=== PATIENT | male | born 1955 | race Caucasian/White ===

== ENCOUNTER 2017-10-05 14:03 | Emergency (ER) | payer BC ==
[2017-10-05 14:24] VITALS: RESP 18; TEMP 97.9
--- NOTE | 2017-10-05 15:58 | ED ---
Recheck HPI - General Chief Complaint: Recheck/Abnormal Lab/Rx Stated Complaint: Elevated Potassium Time Seen by Provider: 10/05/17 15:44 Source: patient Mode of arrival: ambulatory Limitations: no limitations - History of Present Illness Initial Comments: 62 years old male had a potassium checked daily and was 6.4 him a he was sent to the ER for his high potassium he does have a history of hypertension and diabetes he is on Altace and spironolactone so on the right toes for his diabetes he has no complaints at all is review of system is absolutely unremarkable me headaches no chest pain or shortness of breath no abdominal pain no frequency urgency dysuria - Related Data Home Medications Medication Instructions Recorded Confirmed Aspirin 81 mg PO HS 05/03/14 10/05/17 Digoxin [Digox] 125 mcg PO DAILY@1700 05/03/14 10/05/17 Ezetimibe [Zetia] 10 mg PO HS 05/03/14 10/05/17 Spironolactone 25 mg PO DAILY 05/03/14 10/05/17 Warfarin Sodium 2.5 mg PO SUMOWEFR 05/03/14 10/05/17 metFORMIN HCL [Metformin HCl ER] 500 mg PO BID 05/03/14 10/05/17 Warfarin [Coumadin] 5 mg PO TUTHSA 06/15/14 10/05/17 Cholecalciferol [Vitamin D3] 2,000 units PO DAILY 06/17/14 10/05/17 Cyanocobalamin [Vitamin B-12] 500 mcg PO DAILY 12/08/14 10/05/17 Fexofenadine HCl [Shila Allergy] 180 mg PO DAILY 05/21/16 10/05/17 Fluvastatin Sodium 20 mg PO MOTUWETHFR 05/21/16 10/05/17 Gabapentin [Neurontin] 400 mg PO TID 05/21/16 10/05/17 Liraglutide [Victoza 2-Shar] 1.8 mg SQ DAILY 05/21/16 10/05/17 Lisinopril [Zestril] 40 mg PO DAILY 05/21/16 10/05/17 Metoprolol Succinate [Toprol XL] 200 mg PO HS 05/21/16 10/05/17 Ascorbic Acid [Vitamin C] 500 mg PO DAILY 10/05/17 10/05/17 glipiZIDE XL [Glucotrol Xl] 5 mg PO DAILY@1700 10/05/17 10/05/17 Previous Rx's Medication Instructions Recorded Sodium Polystyrene Sulfonate 30 gm PO BID #300 ml 10/05/17 [Kayexalate] Allergies Allergy/AdvReac Type Severity Reaction Status Date / Time wheat Allergy Anaphylaxis Verified 10/05/17 15:31 Review of Systems ROS Statement: Those systems with pertinent positive or pertinent negative responses have been documented in the HPI. ROS Other: All systems not noted in ROS Statement are negative. Past Medical History Past Medical History: Diabetes Mellitus, Hypertension, Myocardial Infarction ([place] ) Additional Past Medical History / Comment(s): 12/08/13 Pt presented to [facility] ER with chest pressure that radiated to back and started around 0430 AM. Symptoms deminished. Pt felt somewhat dizzy with pain. Other HX: IDDM, atach, mild. congestive heart failure and ischemic cardiomyopathy per old medical record-pt denies, bakers cyst LLE, tinnitis R ear, [place] ate 37 yrs, Last Myocardial Infarction Date:: 1993 History of Any Multi-Drug Resistant Organisms: None Reported Past Surgical History: Appendectomy, Cardiac Ablation, Cholecystectomy, Coronary Bypass/CABG, Ear Surgery, Heart Catheterization, Pacemaker Additional Past Surgical History / Comment(s): 2008 CABG 4 vessel, ccaths x 2, cardioversions x 3, cardiac ablation for afib/flutter x 3, Dual chamber AICD ( [facility]), R ear surgery/ Past Anesthesia/Blood Transfusion Reactions: No Reported Reaction Past Psychological History: No Psychological Hx Reported Smoking Status: Former smoker Past Alcohol Use History: None Reported, Rare Past Drug Use History: None Reported - Past Family History Father Additional Family Medical History / Comment(s): Father has a pacer and is 84 yrs old. Mother Family Medical History: Cancer Additional Family Medical History / Comment(s): Mother had a pacer. She of breast cancer with mets to her brain. General Exam - General Exam Comments Initial Comments: General: The patient is awake and alert, in no distress, and does not appear acutely ill. Skin: Skin is warm and dry and no rashes or lesions are noted. Eye: Pupils are equal, round and reactive to light, extra-ocular movements are intact; there is normal conjunctiva bilaterally. Ears, nose, mouth and throat: There are moist mucous membranes and no oral lesions. Neck: The neck is supple, there is no tenderness or JVD. Cardiovascular: There is a regular rate and rhythm. No murmur, rub or gallop is appreciated. Respiratory: To auscultation bilateral, no wheezing no rhonchi no distress respiratory michaels noticed Gastrointestinal: Soft, non-distended, non-tender abdomen without masses or organomegaly noted. There is no rebound or guarding present. Bowel sounds are unremarkable. Back: There is no tenderness to palpation in the midline. There is no obvious deformity. Musculoskeletal: Normal ROM, no tenderness, There is no pedal edema. There is no calf tenderness or swelling. No cords were appreciated. Neurological: CN II-XII intact, Cranial nerves III through XII are intact. There are no obvious motor or sensory deficits. Coordination appears grossly intact. Speech is normal. Psychiatric: Cooperative, appropriate mood & affect, normal judgment. Limitations: no limitations Course Vital Signs 10/05/17 10/05/17 14:20 19:06 Temperature 97.9 F Pulse Rate 83 81 Respiratory 18 18 Rate Blood Pressure 146/70 140/66 O2 Sat by Pulse 97 98 Oximetry EKG is a sinus rhythm with a first-degree AV block ventricular rate is 84 OR interval is 210 QRS duration is 07/01/2011 QT/QTC 364/4:30 review of this EKG does not reveal any ST elevation or ST depression Patient had there are 2 potassium draws today one of them was done 11 5099 potassium is 6.7 and now second now potassium lab was done at term 1315 was 6.4 considering that I had the confirmation a potassium patient be given some liter of fluids Lasix 40 mg IV and then now dextrose 50 one ampule with insulin regular 9 units IV and small dose of Kayexalate hopefully all these measures wall fixed potassium down to normal level, EKG had no findings consistent with hyperKalemia Potassium was rechecked, is 1.2, he is discharged home he is advised not treated bananas is spironolactone he is on lisinopril and I gave him some Kayexalate for next 2-3 days he is advised to see Dr. Mann on Saturday morning due to some adjustments in in his home meds when he Medical Decision Making - Lab Data Result diagrams: 10/05/17 18:24 Lab Results 10/05/17 Range/Units 18:24 Potassium 5.2 H (3.5-5.1) mmol/L Disposition Clinical Impression: Hyperkalemia Disposition: HOME SELF-CARE Condition: Good Instructions: Hyperkalemia (ED) Prescriptions: Sodium Polystyrene Sulfonate [Kayexalate] 30 gm PO BID #300 ml Referrals: Naman Prasad MD [Primary Care Provider] - 1-2 days
[2017-10-05] MEDS ORDERED: SODIUM CHLORIDE 0.9% 1,000 ML IV STA ×2 (16:06)
[2017-10-05] MEDS ORDERED: FUROSEMIDE 10 MG/ML 4 ML VIAL IV STA (16:08)
[2017-10-05] MEDS ORDERED: DEXTROSE 50%-WATER 50 ML SYRINGE IVP STA (16:09)
[2017-10-05] MEDS ORDERED: INSULIN REGULAR 100 UNIT/ML VIAL IV ONE (16:10)
[2017-10-05] MEDS ORDERED: SODIUM POLYSTYRENE SULFONATE 15 GM/60 ML BOTTLE PO STA (16:11)
[2017-10-05 19:07] VITALS: BP 140/66; PULSE 81
== END 2017-10-05 19:49 | disposition home or self-care (01) ==
LOC: EC 14:03
DX: E87.5 Hyperkalemia (principal); I44.0 Atrioventricular block, first degree; E11.9 Type 2 diabetes mellitus without complications; I25.2 Old myocardial infarction; I11.0 Hypertensive heart disease with heart failure; I50.9 Heart failure, unspecified; Z87.891 Personal history of nicotine dependence; Z79.82 Long term (current) use of aspirin; Z79.01 Long term (current) use of anticoagulants; Z79.899 Other long term (current) drug therapy; Z91.018 Allergy to other foods
CPT/HCPCS: 36415; 93005; 84132; 99283; 96374; 96375; 96361 ×3; J1940; 99284

== ENCOUNTER → 2017-10-05 | Outpatient (CLI) | payer BC | END | disposition home or self-care (01) | LOC: RADXRMAIN 12:51 | PROVIDERS: ATTEND Internal Medicine | DX: I10 Essential (primary) hypertension (principal) | CPT/HCPCS: 84132 ==

== ENCOUNTER → 2017-10-05 | Outpatient (CLI) | payer BC ==
[2017-10-05 11:11] LABS: Basophils % (A) 1 %; Eosinophils # (A) 0.3 k/uL (0-0.7); Eosinophils % (A) 4 %; HCT 36.9 % (39.0-53.0); HGB 13.7 gm/dL (13.0-17.5); Lymphocytes # (A) 1.5 k/uL (1.0-4.8); Lymphocytes % (A) 22 %; MCH 33.9 pg (25.0-35.0); MCV 91.5 fL (80.0-100.0); Mean Platelet Volume 7.4; Monocytes # (A) 0.3 k/uL (0-1.0); Monocytes % (A) 4 %; Neutrophils # (A) 4.6 k/uL (1.3-7.7); Neutrophils % (A) 66 %; Platelet Count 174 k/uL (150-450); RBC 4.03 m/uL (4.30-5.90); RDW 14.2 % (11.5-15.5)
[2017-10-05 11:12] LABS: Appearance,Urine Clear (Clear); Bilirubin,Urine Negative (Negative); Blood,Urine Negative (Negative); Color,Urine Yellow; Glucose,Urine (UA) 4+ (Negative); Ketones,Urine Negative (Negative); Leukocyte Esterase,Urine Negative (Negative); Nitrite,Urine Negative (Negative); Protein,Urine Trace (Negative); Specific Gravity,Urine 1.025 (1.001-1.035); Urobilinogen,Urine <2.0 mg/dL (<2.0)
[2017-10-05 11:27] LABS: Albumin 4.1 g/dL (3.5-5.0); Calcium 9.4 mg/dL (8.4-10.2); Total Bilirubin 0.6 mg/dL (0.2-1.3); Total Protein 7.4 g/dL (6.3-8.2)
[2017-10-05 12:16] LABS: Potassium 6.7 mmol/L (3.5-5.1)
== END | disposition home or self-care (01) ==
LOC: LABWHC1 10:46
PROVIDERS: ATTEND Internal Medicine
DX: I10 Essential (primary) hypertension (principal)
CPT/HCPCS: 36415; 80053; 80061; 81003; 85025

== ENCOUNTER 2017-11-04 07:31 | Day surgery (SDC) | payer BC ==
[2017-10-31 09:22] VITALS: BMI 28.8
[~2017-11-04 07:31] MED LIST: LACTATED RINGERS 1,000 ML IV SCH; LIDOCAINE 1% 20 ML VIAL (10MG/ML) FOR IV START INTRADERMA PRN
[2017-11-04] MEDS ORDERED: LACTATED RINGERS 1,000 ML IV ONE (07:35)
[2017-11-04 08:02] VITALS: RESP 16; TEMP 97.4
[2017-11-04 08:18] LABS: Glucose,Whole Blood 270 mg/dL (75-99)
[2017-11-04] MEDS ORDERED: PROPOFOL 10 MG/ML 20 ML VIAL IV ONE (08:57)
[2017-11-04] MEDS ORDERED: LIDOCAINE 1% INJ 10MG/ML (20 ML MDV) ONE (08:57)
--- NOTE | 2017-11-04 09:23 | P.PCN ---
Date of Procedure: 11/04/17 Procedure(s) Performed: Procedure: Colonoscopy and biopsy. Preoperative diagnosis: Screening for neoplasia. Postoperative diagnosis: 1. Diverticulosis with no evidence of acute diverticulitis or strictures. 2. Diminutive polyp in the rectum biopsied but no large polyps or cancer. Preparation: HalfLytely prep. Sedation: Was provided by anesthesia. Brief clinical history: The patient is a 62-year-old male who is scheduled for this evaluation for screening for neoplasia age being his risk factor. He has no abdominal complaints, bleeding or anemia. This would be his first colonoscopy. Procedure: With the patient on his left lateral decubitus position and after informed consent and adequate sedation, the perianal area was inspected and it did not show any fissures or fistulas. There were no masses felt on digital rectal examination. The Olympus CFQ 160L video colonoscope was then inserted in the rectum in the usual fashion and advanced to the cecum. There was a diminutive polyp in the rectum close to the rectosigmoid junction which was biopsied but there were no large polyps or cancer. There was occasional diverticular orifices seen in the sigmoid and on the right side with no evidence of acute diverticulitis or strictures. I retroflexed the endoscope in the rectum before the endoscope was withdrawn. The patient tolerated the procedure well. Plan: The patient was reassured. Discussed dietary measures. He will follow up with you as planned and I recommended repeat exam in 5-10 years depending on the pathology results.
[2017-11-04 09:27] LABS: Glucose,Whole Blood 273 mg/dL (75-99)
[2017-11-04 09:48] VITALS: BP 120/79; PULSE 82
== END 2017-11-04 10:03 | disposition home or self-care (01) ==
LOC: ORWHC2ENDO 07:31
DX: Z12.11 Encounter for screening for malignant neoplasm of colon (principal); K62.1 Rectal polyp; K57.30 Diverticulosis of large intestine without perforation or abscess without bleeding; E11.9 Type 2 diabetes mellitus without complications; I48.91 Unspecified atrial fibrillation; I11.0 Hypertensive heart disease with heart failure; I50.9 Heart failure, unspecified; Z95.810 Presence of automatic (implantable) cardiac defibrillator; Z95.1 Presence of aortocoronary bypass graft; I42.9 Cardiomyopathy, unspecified; I25.2 Old myocardial infarction; Z87.891 Personal history of nicotine dependence; Z79.84 Long term (current) use of oral hypoglycemic drugs; Z79.82 Long term (current) use of aspirin; Z79.899 Other long term (current) drug therapy; Z91.018 Allergy to other foods
CPT/HCPCS: 88305; 45380; J2001; J2704

== ENCOUNTER 2018-01-14 09:38 | Inpatient (IN) | payer BC ==
[2018-01-14] MEDS ORDERED: HEPARIN SODIUM,PORCINE 5,000 UNIT/ML 1 ML VIAL IV STA (10:08)
--- NOTE | 2018-01-14 10:34 | ED ---
Arrhythmia/Palpitations HPI - General Source: patient, RN notes reviewed Mode of arrival: wheelchair Limitations: no limitations <Joseluis Kincaid - Last Filed: 01/14/18 11:35> <Marvel Epstein - Last Filed: 01/14/18 11:39> - General Chief Complaint: Arrhythmia/Palpitations Stated Complaint: Heart sent by PCP Time Seen by Provider: 01/14/18 09:56 - History of Present Illness Initial Comments: This is a 62-year-old male presents emergency Department with chief complaint of fibular firing. Patient states that he was having a stress test and cardiology day and which is typically when off. He states he has no complaints at this time. Patient states that he's had open-heart in 2008 and had defibrillator placed approximately a year after. He does have a history of A. fib. Patient of his medications this morning other than his insulin. states takes aspirin and nighttime did take it last night. Patient denies current shortness breath, palpitations, headache, dizziness. Patient states she primarily sees Dr. Morton (Joseluis Kincaid) - Related Data Home Medications Medication Instructions Recorded Confirmed Digoxin [Digox] 125 mcg PO DAILY@1700 05/03/14 01/14/18 Ezetimibe [Zetia] 10 mg PO DAILY 05/03/14 01/14/18 Warfarin Sodium 2.5 mg PO SUMOWEFR 05/03/14 01/14/18 Warfarin [Coumadin] 5 mg PO TUTHSA 06/15/14 01/14/18 Cholecalciferol [Vitamin D3] 2,000 units PO DAILY 06/17/14 01/14/18 Cyanocobalamin [Vitamin B-12] 500 mcg PO DAILY 12/08/14 01/14/18 Fexofenadine HCl [Shila Allergy] 180 mg PO DAILY 05/21/16 11/04/17 Fluvastatin Sodium 20 mg PO MOTUWETHFR 05/21/16 01/14/18 Liraglutide [Victoza 2-Shar] 1.8 mg SQ DAILY 05/21/16 01/14/18 Lisinopril [Zestril] 40 mg PO DAILY 05/21/16 01/14/18 Metoprolol Succinate [Toprol XL] 200 mg PO HS 05/21/16 01/14/18 Ascorbic Acid [Vitamin C] 500 mg PO DAILY 10/05/17 01/14/18 Hydrochlorothiazide [Hydrodiuril] 12.5 mg PO DAILY 11/04/17 01/14/18 Gabapentin 600 mg PO TID 01/14/18 01/14/18 Insulin Aspart (Niacinamide) 7 unit SQ TID 01/14/18 01/14/18 [Fiasp 100 Unit/ml Flextouch] Insulin Glargine,Hum.rec.anlog 20 units SQ DAILY 01/14/18 01/14/18 [Toujeo Solostar] Nitroglycerin 0.4 mg SL ONCE PRN 01/14/18 01/14/18 Spironolactone [Aldactone] 25 mg PO DAILY 01/14/18 01/14/18 glipiZIDE [Glucotrol XL] 10 mg PO DAILY 01/14/18 01/14/18 Allergies Allergy/AdvReac Type Severity Reaction Status Date / Time wheat Allergy Anaphylaxis Verified 01/14/18 10:27 Review of Systems ROS Other: All systems not noted in ROS Statement are negative. <Joseluis Kincaid - Last Filed: 01/14/18 11:35> ROS Other: All systems not noted in ROS Statement are negative. <Marvel Epstein - Last Filed: 01/14/18 11:39> ROS Statement: Those systems with pertinent positive or pertinent negative responses have been documented in the HPI. Past Medical History Past Medical History: Atrial Fibrillation, Heart Failure, Diabetes Mellitus, Hypertension, Myocardial Infarction ([place]) Additional Past Medical History / Comment(s): ischemic cardiomyopathy per old medical record-pt denies, bakers cyst LLE, tinnitis R ear, Last Myocardial Infarction Date:: 1993 History of Any Multi-Drug Resistant Organisms: None Reported Past Surgical History: AICD, Appendectomy, Cardiac Ablation, Cholecystectomy, Coronary Bypass/CABG, Ear Surgery, Heart Catheterization, Pacemaker Additional Past Surgical History / Comment(s): 2008 CABG 4 vessel, ccaths x 2, cardioversions x 3, cardiac ablation for afib/flutter x 3, Dual chamber AICD/ [facility] ([facility]), R ear surgery, abnormal stress test december 2017. Past Anesthesia/Blood Transfusion Reactions: No Reported Reaction Type of Cardiac Device: Biventricular Pacemaker, AICD Device Placement Date:: 2009 Past Psychological History: No Psychological Hx Reported Smoking Status: Former smoker Past Alcohol Use History: None Reported Past Drug Use History: None Reported - Past Family History Father Additional Family Medical History / Comment(s): Father has a pacer and is 84 yrs old. Mother Family Medical History: Cancer Additional Family Medical History / Comment(s): Mother had a pacer. She of breast cancer with mets to her brain. <Joseluis Kincaid - Last Filed: 01/14/18 11:35> General Exam Limitations: no limitations General appearance: alert, in no apparent distress Head exam: Present: atraumatic, normocephalic, normal inspection Respiratory exam: Present: normal lung sounds bilaterally. Absent: respiratory distress, wheezes, rales, rhonchi, stridor, chest wall tenderness Cardiovascular Exam: Present: regular rate, normal rhythm, normal heart sounds. Absent: systolic murmur, diastolic murmur, rubs, gallop, clicks GI/Abdominal exam: Present: soft, normal bowel sounds. Absent: distended, tenderness, guarding, rebound, rigid Neurological exam: Present: alert, oriented X3, CN II-XII intact Skin exam: Present: warm, dry, intact, normal color. Absent: rash <Joseluis Kincaid - Last Filed: 01/14/18 11:35> Course <Joseluis Kincaid - Last Filed: 01/14/18 11:35> <Marvel Epstein - Last Filed: 01/14/18 11:39> Vital Signs 01/14/18 01/14/18 01/14/18 09:49 10:41 11:16 Temperature 98.0 F Pulse Rate 82 75 75 Respiratory 18 16 18 Rate Blood Pressure 146/74 129/70 141/76 O2 Sat by Pulse 99 97 99 Oximetry - Reevaluation(s) Reevaluation #1: 01/14/18 11:38 Patient reevaluated by myself, Dr. Epstein. Patient resting comfortably in bed. Patient states he was at his cardiology office undergoing stress test. Patient started to feel tired and then next thing he remembered his he woke up on the floor. Patient reportedly had arrhythmia with a rate of 175. Cardiology did call and recommended admission with heparin. Patient updated on results and plan. Heart sounds regular rate and rhythm without murmur. Patient is normal sinus rhythm on the monitor. He did review and agree with PA findings. This includes all diagnostic interpretation to treatment plan. Case was discussed in detail with Dr. Saunders with [facility] physician, who will admit covering for Dr. robledo, who admits for Dr. Mann. (Marvel Epstein) EKG Findings - EKG Comments: EKG Findings:: EKG performed at 10:06 sinus rhythm with a PVC rate of 78 ID 194 QRS 120 QT/QTC 404/460 noted inverted T waves V1 to V6 <Joseluis Kincaid - Last Filed: 01/14/18 11:35> Medical Decision Making - Lab Data Result diagrams: 01/14/18 10:07 01/14/18 10:07 <Joseluis Kincaid - Last Filed: 01/14/18 11:35> - Lab Data Result diagrams: 01/14/18 10:07 01/14/18 10:07 <Marvel Epstein - Last Filed: 01/14/18 11:39> - Lab Data Lab Results 01/14/18 01/14/18 01/14/18 Range/Units 10:07 10:07 10:07 WBC 6.5 (3.8-10.6) k/uL RBC 4.49 (4.30-5.90) m/uL Hgb 14.0 (13.0-17.5) gm/dL Hct 41.9 (39.0-53.0) % MCV 93.3 (80.0-100.0) fL MCH 31.2 (25.0-35.0) pg MCHC 33.5 (31.0-37.0) g/dL RDW 14.4 (11.5-15.5) % Plt Count 120 L (150-450) k/uL Neutrophils % 72 % Lymphocytes % 17 % Monocytes % 6 % Eosinophils % 2 % Basophils % 1 % Neutrophils # 4.7 (1.3-7.7) k/uL Lymphocytes # 1.1 (1.0-4.8) k/uL Monocytes # 0.4 (0-1.0) k/uL Eosinophils # 0.1 (0-0.7) k/uL Basophils # 0.0 (0-0.2) k/uL PT (9.0-12.0) sec INR (<1.2) APTT (22.0-30.0) sec Sodium 134 L (137-145) mmol/L Potassium 4.7 (3.5-5.1) mmol/L Chloride 100 (98-107) mmol/L Carbon Dioxide 24 (22-30) mmol/L Anion Gap 10 mmol/L BUN 21 H (9-20) mg/dL Creatinine 0.84 (0.66-1.25) mg/dL Est GFR (CKD-EPI)AfAm >90 (>60 ml/min/1.73 sqM) Est GFR (CKD-EPI)NonAf >90 (>60 ml/min/1.73 sqM) Glucose 331 H (74-99) mg/dL Calcium 8.9 (8.4-10.2) mg/dL Magnesium 1.6 (1.6-2.3) mg/dL Total Bilirubin 0.6 (0.2-1.3) mg/dL AST 50 (17-59) U/L ALT 57 (21-72) U/L Alkaline Phosphatase 63 (38-126) U/L Total Creatine Kinase 58 (55-170) U/L CK-MB (CK-2) 0.9 (0.0-2.4) ng/mL CK-MB (CK-2) Rel Index 1.6 Troponin I 0.014 (0.000-0.034) ng/mL Total Protein 6.3 (6.3-8.2) g/dL Albumin 4.0 (3.5-5.0) g/dL // Range/Units 10:07 WBC (3.8-10.6) k/uL RBC (4.30-5.90) m/uL Hgb (13.0-17.5) gm/dL Hct (39.0-53.0) % MCV (80.0-100.0) fL MCH (25.0-35.0) pg MCHC (31.0-37.0) g/dL RDW (11.5-15.5) % Plt Count (150-450) k/uL Neutrophils % % Lymphocytes % % Monocytes % % Eosinophils % % Basophils % % Neutrophils # (1.3-7.7) k/uL Lymphocytes # (1.0-4.8) k/uL Monocytes # (0-1.0) k/uL Eosinophils # (0-0.7) k/uL Basophils # (0-0.2) k/uL PT 17.5 H (9.0-12.0) sec INR 1.9 H (<1.2) APTT 28.4 (22.0-30.0) sec Sodium (137-145) mmol/L Potassium (3.5-5.1) mmol/L Chloride (98-107) mmol/L Carbon Dioxide (22-30) mmol/L Anion Gap mmol/L BUN (9-20) mg/dL Creatinine (0.66-1.25) mg/dL Est GFR (CKD-EPI)AfAm (>60 ml/min/1.73 sqM) Est GFR (CKD-EPI)NonAf (>60 ml/min/1.73 sqM) Glucose (74-99) mg/dL Calcium (8.4-10.2) mg/dL Magnesium (1.6-2.3) mg/dL Total Bilirubin (0.2-1.3) mg/dL AST (17-59) U/L ALT (21-72) U/L Alkaline Phosphatase (38-126) U/L Total Creatine Kinase (55-170) U/L CK-MB (CK-2) (0.0-2.4) ng/mL CK-MB (CK-2) Rel Index Troponin I (0.000-0.034) ng/mL Total Protein (6.3-8.2) g/dL Albumin (3.5-5.0) g/dL Disposition <Joseluis Kincaid - Last Filed: 01/14/18 11:35> <Marvel Epstein - Last Filed: 01/14/18 11:39> Clinical Impression: Defibrillator discharge, Chest pain Disposition: ADMITTED IP TO THIS [facility] Condition: Stable Referrals: Naman Prasad MD [Primary Care Provider] - 1-2 days
[2018-01-14 10:46] LABS: Basophils % (A) 1 %; Eosinophils # (A) 0.1 k/uL (0-0.7); Eosinophils % (A) 2 %; HCT 41.9 % (39.0-53.0); INR 1.9 (<1.2); Lymphocytes # (A) 1.1 k/uL (1.0-4.8); Lymphocytes % (A) 17 %; MCH 31.2 pg (25.0-35.0); MCHC 33.5 g/dL (31.0-37.0); MCV 93.3 fL (80.0-100.0); Mean Platelet Volume 8.2; Monocytes # (A) 0.4 k/uL (0-1.0); Monocytes % (A) 6 %; Neutrophils # (A) 4.7 k/uL (1.3-7.7); Neutrophils % (A) 72 %; Partial Thromboplastin Time 28.4 sec (22.0-30.0); Platelet Count 120 k/uL (150-450); Prothrombin Time 17.5 sec (9.0-12.0); RBC 4.49 m/uL (4.30-5.90); RDW 14.4 % (11.5-15.5); WBC 6.5 k/uL (3.8-10.6)
[2018-01-14 10:53] LABS: ALT 57 U/L (21-72); AST 50 U/L (17-59); Alkaline Phosphatase 63 U/L (38-126); Anion Gap 10 mmol/L; Blood Urea Nitrogen 21 mg/dL (9-20); Calcium 8.9 mg/dL (8.4-10.2); Carbon Dioxide 24 mmol/L (22-30); Chloride 100 mmol/L (98-107); Glucose 331 mg/dL (74-99); Magnesium 1.6 mg/dL (1.6-2.3); Potassium 4.7 mmol/L (3.5-5.1); Sodium 134 mmol/L (137-145); Total Bilirubin 0.6 mg/dL (0.2-1.3); Total Protein 6.3 g/dL (6.3-8.2)
[2018-01-14] MEDS: HEPARIN SOD,PORK IN 0.45% NACL 25,000 UNIT in 0.45% NACL 1 500ML.BAG IV SCH (11:10)
[2018-01-14 11:14] LABS: Creatine Kinase MB 0.9 ng/mL (0.0-2.4); Troponin I 0.014 ng/mL (0.000-0.034)
--- NOTE | 2018-01-14 11:17 | XR ---
EXAMINATION TYPE: XR chest 2V DATE OF EXAM: 01/14/2018 COMPARISON: 12/08/2014 HISTORY: 62-year-old male with dysrhythmia TECHNIQUE: PA and lateral views FINDINGS: Heart borderline enlarged. Left anterior chest wall ICD generator with right atrial and right ventric ular leads. Median sternotomy wires are present with post-CABG clips in the mediastinum. Strandy atel ectasis left base. No consolidation or pleural effusion. IMPRESSION: Borderline cardiomegaly. No acute process seen.
[2018-01-14] MEDS ORDERED: INSULIN ASPART 100 UNIT/ML 1 ML 10 ML VIAL SQ ONE (11:32)
[2018-01-14] MEDS ORDERED: NITROGLYCERIN SL TABS 0.4 MG TAB SUBLINGUAL PRN ×2 (11:37→12:20)
[2018-01-14] MEDS ORDERED: NALOXONE 0.4 MG/ML 1 ML VIAL IV PRN (12:09)
--- NOTE | 2018-01-14 12:26 | P.HPIM ---
History of Present Illness H&P Date: 01/14/18 Chief Complaint: Defibrillator shock 62-year-old male presented to the emergency Department with chief complaint of defibrillator firing. He had few episodes of chest pain few weeks ago, image editor recommended that he gets a stress test. Today he was having the chemical test and right after he received the injection he passed out. He stated that he didn't feel anything. No cp, sob. No palpitations. No dizziness, didn't feel the shock. After he woke up he had no complaints. He stated that he felt like ''a million bucks''. Patient stated that he's had open-heart in 2008 and had defibrillator placed approximately a year after. He does have a history of A. fib and takes coumadin. No recent illness, no fevers or chills. Device interrogation revealed v.tach with a rate on 170. Past Medical History Past Medical History: Atrial Fibrillation, Heart Failure, Diabetes Mellitus, Hypertension, Myocardial Infarction ([place]) Additional Past Medical History / Comment(s): ischemic cardiomyopathy per old medical record-pt denies, bakers cyst LLE, tinnitis R ear, Last Myocardial Infarction Date:: 1993 History of Any Multi-Drug Resistant Organisms: None Reported Past Surgical History: AICD, Appendectomy, Cardiac Ablation, Cholecystectomy, Coronary Bypass/CABG, Ear Surgery, Heart Catheterization, Pacemaker Additional Past Surgical History / Comment(s): 2008 CABG 4 vessel, ccaths x 2, cardioversions x 3, cardiac ablation for afib/flutter x 3, Dual chamber AICD/ [facility]ER ([facility]), R ear surgery, abnormal stress test december 2017. Past Anesthesia/Blood Transfusion Reactions: No Reported Reaction Type of Cardiac Device: Biventricular Pacemaker, AICD Device Placement Date:: 2009 Past Psychological History: No Psychological Hx Reported Smoking Status: Former smoker Past Alcohol Use History: None Reported Past Drug Use History: None Reported - Past Family History Father Additional Family Medical History / Comment(s): Father has a pacer and is 84 yrs old. Mother Family Medical History: Cancer Additional Family Medical History / Comment(s): Mother had a pacer. She of breast cancer with mets to her brain. Medications and Allergies Home Medications Medication Instructions Recorded Confirmed Type Digoxin [Digox] 125 mcg PO DAILY@1700 05/03/14 01/14/18 History Ezetimibe [Zetia] 10 mg PO DAILY 05/03/14 01/14/18 History Warfarin Sodium 2.5 mg PO SUMOWEFR 05/03/14 01/14/18 History Warfarin [Coumadin] 5 mg PO TUTHSA 06/15/14 01/14/18 History Cholecalciferol [Vitamin D3] 2,000 units PO DAILY 06/17/14 01/14/18 History Cyanocobalamin [Vitamin B-12] 500 mcg PO DAILY 12/08/14 01/14/18 History Fexofenadine HCl [Shila Allergy] 180 mg PO DAILY 05/21/16 11/04/17 History Fluvastatin Sodium 20 mg PO MOTUWETHFR 05/21/16 01/14/18 History Liraglutide [Victoza 2-Shar] 1.8 mg SQ DAILY 05/21/16 01/14/18 History Lisinopril [Zestril] 40 mg PO DAILY 05/21/16 01/14/18 History Metoprolol Succinate [Toprol XL] 200 mg PO HS 05/21/16 01/14/18 History Ascorbic Acid [Vitamin C] 500 mg PO DAILY 10/05/17 01/14/18 History Hydrochlorothiazide [Hydrodiuril] 12.5 mg PO DAILY 11/04/17 01/14/18 History Gabapentin 600 mg PO TID 01/14/18 01/14/18 History Insulin Aspart (Niacinamide) 7 unit SQ TID 01/14/18 01/14/18 History [Fiasp 100 Unit/ml Flextouch] Insulin Glargine,Hum.rec.anlog 20 units SQ DAILY 01/14/18 01/14/18 History [Toujeo Solostar] Nitroglycerin 0.4 mg SL ONCE PRN 01/14/18 01/14/18 History Spironolactone [Aldactone] 25 mg PO DAILY 01/14/18 01/14/18 History glipiZIDE [Glucotrol XL] 10 mg PO DAILY 01/14/18 01/14/18 History Allergies Allergy/AdvReac Type Severity Reaction Status Date / Time wheat Allergy Anaphylaxis Verified 01/14/18 10:27 Physical Exam Vitals: Vital Signs Temp Pulse Resp BP Pulse Ox 01/14/18 11:16 75 18 141/76 99 01/14/18 10:41 75 16 129/70 97 01/14/18 09:49 98.0 F 82 18 146/74 99 Intake and Output 01/13/18 01/14/18 01/14/18 22:59 06:59 14:59 Other: Weight 95.254 kg General appearance: alert, in no apparent distress HEENT: atraumatic, normocephalic, PEERLA. Respiratory exam: Present: normal lung sounds bilaterally. Absent: respiratory distress, wheezes, rales, rhonchi, stridor, chest wall tenderness Cardiovascular Exam: Present: regular rate, normal rhythm, normal heart sounds. Absent: systolic murmur, diastolic murmur, rubs, gallop, clicks GI/Abdominal exam: Present: soft, normal bowel sounds. Absent: distended, tenderness, guarding, rebound, rigid Neurological exam: Present: alert, oriented X3, CN II-XII intact Skin exam: Present: warm, dry, intact, normal color. Absent: rash Results CBC & Chem 7: 01/14/18 10:07 01/14/18 10:07 Labs: Abnormal Lab Results - Last 24 Hours (Table) 01/14/18 01/14/18 01/14/18 Range/Units 10:07 10:07 10:07 Plt Count 120 L (150-450) k/uL PT 17.5 H (9.0-12.0) sec INR 1.9 H (<1.2) Sodium 134 L (137-145) mmol/L BUN 21 H (9-20) mg/dL Glucose 331 H (74-99) mg/dL Assessment and Plan Plan: -Defibrillator firing: Admit to observation R/O ACS Tele Cycle trops Cardiology consult -Hx of atrial Fibrillation s/p ablation, CHF, Diabetes Mellitus type 2, Essential hypertension: Stable Resume home meds. -DVT prophylaxis: Already on coumadin
[2018-01-14 13:15] LABS: Glucose,Whole Blood 272 mg/dL (75-99)
[2018-01-14] MEDS: ATORVASTATIN 10 MG TAB PO SCH ×2 (13:19)
[2018-01-14] MEDS: INSULIN ASPART 100 UNIT/ML 1 ML 10 ML VIAL SQ SCH ×5 (13:20→22:45)
--- NOTE | 2018-01-14 14:29 | P.CRDCN ---
History of Present Illness Consult date: 01/14/18 Chief complaint: Chest discomfort History of present illness: This is a pleasant 62-year-old gentleman who sees Dr. Morton in the office on regular basis with a past medical history significant for coronary artery disease and status post coronary artery that is grafting with unknown details at this point, known severe ischemic cardiomyopathy and status post ICD, paroxysmal atrial fibrillation, hypertension, dyslipidemia, was sent directly from our office to the emergency room after he had an episode of sustained VT requiring ICD shocks. The patient was experiencing symptoms of chest discomfort started about 2 weeks ago. He stated that with his normal activities he does not have any symptoms of chest pain or chest discomfort but with extreme exertion like when he works at his backyard he developed chest discomfort in the mid of the chest, as a pressure, without any radiation to the arm or neck or shoulders and without any associated symptoms of shortness of breath, sweating, dizziness or lightheadedness, or syncope. The chest discomfort lasts only for few minutes. He only did have to episodes of chest discomfort. Because of that the patient was scheduled to undergo a stress test. White he was walking on the treadmill he developed a syncopal episode and was found to have an episode of V. tach requiring ICD shocks. The stress test itself was performed and did show an area of ischemia involving the anterior wall of the left ventricle with a scar involving the inferior wall of the left ventricle. Because of that the patient was sent directly to the emergency room. Currently the patient is chest pain-free. He is hemodynamically stable. The EKG showed sinus rhythm with nonspecific ST and T wave abnormality seems to be diffuse. The CBC and BMP are within normal limits. The first set of troponin is within normal limits. Past Medical History Past Medical History: Atrial Fibrillation, Heart Failure, Diabetes Mellitus, Hypertension, Myocardial Infarction ([place]) Additional Past Medical History / Comment(s): ischemic cardiomyopathy per old medical record-pt denies, bakers cyst LLE, tinnitis R ear, Last Myocardial Infarction Date:: 1993 History of Any Multi-Drug Resistant Organisms: None Reported Past Surgical History: AICD, Appendectomy, Cardiac Ablation, Cholecystectomy, Coronary Bypass/CABG, Ear Surgery, Heart Catheterization, Pacemaker Additional Past Surgical History / Comment(s): 2008 CABG 4 vessel, ccaths x 2, cardioversions x 3, cardiac ablation for afib/flutter x 3, Dual chamber AICD/ [facility]EM[facility]ER ([facility]), R ear surgery, abnormal stress test december 2017. Past Anesthesia/Blood Transfusion Reactions: No Reported Reaction Type of Cardiac Device: Biventricular Pacemaker, AICD Device Placement Date:: 2009 Past Psychological History: No Psychological Hx Reported Smoking Status: Former smoker Past Alcohol Use History: None Reported Past Drug Use History: None Reported - Past Family History Father Additional Family Medical History / Comment(s): Father has a pacer and is 84 yrs old. Mother Family Medical History: Cancer Additional Family Medical History / Comment(s): Mother had a pacer. She of breast cancer with mets to her brain. Medications and Allergies Home Medications Medication Instructions Recorded Confirmed Type Digoxin [Digox] 125 mcg PO DAILY@1700 05/03/14 01/14/18 History Ezetimibe [Zetia] 10 mg PO DAILY 05/03/14 01/14/18 History Warfarin Sodium 2.5 mg PO SUMOWEFR 05/03/14 01/14/18 History Warfarin [Coumadin] 5 mg PO TUTHSA 06/15/14 01/14/18 History Cholecalciferol [Vitamin D3] 2,000 units PO DAILY 06/17/14 01/14/18 History Cyanocobalamin [Vitamin B-12] 500 mcg PO DAILY 12/08/14 01/14/18 History Fexofenadine HCl [Shila Allergy] 180 mg PO DAILY 05/21/16 11/04/17 History Fluvastatin Sodium 20 mg PO MOTUWETHFR 05/21/16 01/14/18 History Liraglutide [Victoza 2-Shar] 1.8 mg SQ DAILY 05/21/16 01/14/18 History Lisinopril [Zestril] 40 mg PO DAILY 05/21/16 01/14/18 History Metoprolol Succinate [Toprol XL] 200 mg PO HS 05/21/16 01/14/18 History Ascorbic Acid [Vitamin C] 500 mg PO DAILY 10/05/17 01/14/18 History Hydrochlorothiazide [Hydrodiuril] 12.5 mg PO DAILY 11/04/17 01/14/18 History Gabapentin 600 mg PO TID 01/14/18 01/14/18 History Insulin Aspart (Niacinamide) 7 unit SQ TID 01/14/18 01/14/18 History [Fiasp 100 Unit/ml Flextouch] Insulin Glargine,Hum.rec.anlog 20 units SQ DAILY 01/14/18 01/14/18 History [Touclifo Solostar] Nitroglycerin 0.4 mg SL ONCE PRN 01/14/18 01/14/18 History Spironolactone [Aldactone] 25 mg PO DAILY 01/14/18 01/14/18 History glipiZIDE [Glucotrol XL] 10 mg PO DAILY 01/14/18 01/14/18 History Allergies Allergy/AdvReac Type Severity Reaction Status Date / Time wheat Allergy Anaphylaxis Verified 01/14/18 10:27 Physical Exam Vitals: Vital Signs Temp Pulse Resp BP Pulse Ox 01/14/18 13:22 82 16 136/72 98 01/14/18 11:16 75 18 141/76 99 01/14/18 10:41 75 16 129/70 97 01/14/18 09:49 98.0 F 82 18 146/74 99 Intake and Output 01/13/18 01/14/18 01/14/18 22:59 06:59 14:59 Other: Weight 95.254 kg - Constitutional General appearance: no acute distress - Respiratory Respiratory: bilateral: CTA - Cardiovascular Rhythm: regular Heart sounds: normal: S1, S2 Results 01/14/18 10:07 01/14/18 10:07 Cardiac Enzymes 01/14/18 01/14/18 Range/Units 10:07 10:07 AST 50 (17-59) U/L CK-MB (CK-2) 0.9 (0.0-2.4) ng/mL Troponin I 0.014 (0.000-0.034) ng/mL Coagulation 01/14/18 Range/Units 10:07 PT 17.5 H (9.0-12.0) sec APTT 28.4 (22.0-30.0) sec CBC 01/14/18 Range/Units 10:07 WBC 6.5 (3.8-10.6) k/uL RBC 4.49 (4.30-5.90) m/uL Hgb 14.0 (13.0-17.5) gm/dL Hct 41.9 (39.0-53.0) % Plt Count 120 L (150-450) k/uL Comprehensive Metabolic Panel 01/14/18 Range/Units 10:07 Sodium 134 L (137-145) mmol/L Potassium 4.7 (3.5-5.1) mmol/L Chloride 100 (98-107) mmol/L Carbon Dioxide 24 (22-30) mmol/L BUN 21 H (9-20) mg/dL Creatinine 0.84 (0.66-1.25) mg/dL Glucose 331 H (74-99) mg/dL Calcium 8.9 (8.4-10.2) mg/dL AST 50 (17-59) U/L ALT 57 (21-72) U/L Alkaline Phosphatase 63 (38-126) U/L Total Protein 6.3 (6.3-8.2) g/dL Albumin 4.0 (3.5-5.0) g/dL Current Medications Generic Name Dose Route Start Last Admin Trade Name Freq PRN Reason Stop Dose Admin Acetaminophen 650 mg 01/14/18 12:09 Tylenol Tab PO Q6HR PRN Mild Pain or Fever > 100.5 Ascorbic Acid 500 mg 01/15/18 09:00 Vitamin C PO DAILY [facility] Aspirin 325 mg 01/15/18 09:00 Aspirin PO DAILY [facility] Atorvastatin Calcium 10 mg 01/14/18 12:30 01/14/18 13:19 Lipitor PO Not Given MOTUWETHFR [facility] Cholecalciferol 2,000 unit 01/15/18 09:00 Vitamin D3 PO DAILY [facility] Cyanocobalamin 500 mcg 01/15/18 09:00 Vitamin B-12 PO DAILY [facility] Digoxin 125 mcg 01/14/18 17:00 Lanoxin PO DAILY@1700 [facility] Ezetimibe 10 mg 01/15/18 09:00 Zetia PO DAILY [facility] Gabapentin 600 mg 01/14/18 16:00 Neurontin PO TID [facility] Heparin Sodium/Sodium Chloride 500 mls @ 20 mls/hr 01/14/18 10:15 01/14/18 11 :10 25,000 unit/ Sodium Chloride IV 10.5 units/kg/hr .Q24H [facility] 20 mls/hr Administration Protocol 10.5 UNITS/KG/HR Insulin Aspart 0 unit 01/14/18 12:30 01/14/18 13:20 Novolog SQ Not Given ACHS [facility] Protocol Insulin Aspart 7 unit 01/14/18 16:00 Novolog SQ TID [facility] Insulin Detemir 20 unit 01/15/18 09:00 Levemir SQ DAILY [facility] Lisinopril 40 mg 01/15/18 09:00 Zestril PO DAILY [facility] Loratadine 10 mg 01/15/18 09:00 Claritin PO DAILY [facility] Metoprolol Succinate 200 mg 01/14/18 21:00 Toprol Xl PO HS [facility] Naloxone HCl 0.2 mg 01/14/18 12:09 Narcan IV Q2M PRN Opioid Reversal Nitroglycerin 0.4 mg 01/14/18 11:37 Nitrostat SUBLINGUAL Q5M PRN Chest Pain Liraglutide [Victoza 1.8 mg 01/15/18 09:00 ] SQ DAILY [facility] Spironolactone 25 mg 01/15/18 09:00 Aldactone PO DAILY [facility] Warfarin Sodium 5 mg 01/14/18 18:00 Coumadin PO [email or web address]@1800 [facility] Warfarin Sodium 2.5 mg 01/15/18 18:00 Coumadin PO [email or web address] [facility] Intake and Output 01/13/18 01/14/18 01/14/18 22:59 06:59 14:59 Other: Weight 95.254 kg Patient Weight 01/15/18 06:59 Weight 95.254 kg 01/14/18 10:07 01/14/18 10:07 Assessment and Plan Assessment: Assessment #1 an episode of sustained V. tach requiring ICD shocks #2 known severe underlying coronary artery disease and status post CABG #3 chest discomfort seems to be anginal #4 abnormal myocardial perfusion imaging stress test #5 severe ischemic cardiomyopathy and status post AICD #6 multiple comorbid conditions including hypertension and dyslipidemia #7 paroxysmal atrial fibrillation Plan #1 currently the patient is chest pain-free. #2 the patient will be admitted to the hospital #3 rule out acute coronary event #4 obtain an echocardiogram was Doppler #5 the patient does need to undergo a heart catheterization to rule out any severe underlying coronary artery disease. We'll continue following up with him and thank you for allowing us participate in his care
[2018-01-14 16:55] LABS: Glucose,Whole Blood 320 mg/dL (75-99)
--- NOTE | 2018-01-14 17:16 | ECHOF ---
Referral Reason:syncope MEASUREMENTS -------- HEIGHT: 185.4 cm WEIGHT: 95.3 kg BP: 136/72 IVSd: 1.1 cm (0.6 - 1.1) LVIDd: 6.0 cm (3.9 - 5.3) LVPWd: 1.1 cm (0.6 - 1.1) IVSs: 1.4 cm LVIDs: 5.0 cm LVPWs: 1.3 cm LA Diam: 4.3 cm (2.7 - 3.8) RVIDd: 2.7 cm (< 3.3) LAESV Index (A-L): 38.69 ml/m Ao Diam: 3.6 cm (2.0 - 3.7) LA Diam: 4.3 cm (2.7 - 3.8) AV Cusp: 2.2 cm (1.5 - 2.6) EPSS: 0.9 cm MV E Devin: 0.81 m/s MV DecT: 231 ms MV A Devin: 0.30 m/s MV E/A Ratio: 2.71 RAP: 5.00 mmHg RVSP: 10.67 mmHg MV EF SLOPE: 172.63 mm/s (70 - 150) MV EXCURSION: 2.91 cm (> 18.000) FINDINGS -------- Sinus rhythm. This was a technically difficult study with suboptimal views. The left ventricle is mildly dilated. There is borderline concentric left ventricular hypertrophy. There is moderate global hypokinesis of LV . Overall left ventricular systolic function is modera te-severely impaired with, an EF between 30 - 35 %. The right ventricle is normal in size and function. LA is moderately dilated 34-39 ml/m2 The right atrium is normal in size. Electronic pacemaker lead seen in the right ventricular cavity. RA appears enlarged. 3ml of Lumason was utilized for enhancement of images. Aortic valve is trileaflet and is mildly thickened. There is no evidence of aortic regurgitation. There is no evidence of aortic stenosis. The mitral valve leaflets are mildly thickened. Mild mitral annular calcification present. There is trace to mild mitral regurgitation. Trace tricuspid regurgitation present. Right ventricular systolic pressure is normal at < 35 mmHg. There is no evidence of pulmonary hypertension. The pulmonic valve was not well visualized. The aortic root size is normal. Normal inferior vena cava with normal inspiratory collapse consistent with estimated right atrial pre ssure of 5 mmHg. There is no pericardial effusion. CONCLUSIONS -------- 1. Sinus rhythm. 2. This was a technically difficult study with suboptimal views. 3. The left ventricle is mildly dilated. 4. There is borderline concentric left ventricular hypertrophy. 5. There is moderate global hypokinesis of LV . 6. Overall left ventricular systolic function is moderate-severely impaired with, an EF between 30 - 35 %. 7. LA is moderately dilated 34-39 ml/m2 8. RA appears enlarged. 9. 3ml of Lumason was utilized for enhancement of images. 10. Aortic valve is trileaflet and is mildly thickened. 11. The mitral valve leaflets are mildly thickened. 12. Mild mitral annular calcification present. 13. There is trace to mild mitral regurgitation. 14. Trace tricuspid regurgitation present. 15. Right ventricular systolic pressure is normal at < 35 mmHg. 16. There is no evidence of pulmonary hypertension. 17. The pulmonic valve was not well visualized. 18. The aortic root size is normal. 19. There is no pericardial effusion. FLIGHT ATTENDANT: Ac Luu RDCS
[2018-01-14] MEDS: GABAPENTIN 300 MG CAP PO SCH ×2 (17:39→22:44)
[2018-01-14] MEDS: DIGOXIN 125 MCG TAB PO SCH (17:40)
[2018-01-14] MEDS: WARFARIN 5 MG TAB PO SCH (17:43)
[2018-01-14 18:03] LABS: Troponin I 0.061 ng/mL (0.000-0.034)
[2018-01-14 20:54] LABS: Glucose,Whole Blood 244 mg/dL (75-99)
[2018-01-14 22:04] LABS: Creatine Kinase MB 0.9 ng/mL (0.0-2.4); Troponin I 0.049 ng/mL (0.000-0.034)
[2018-01-14] MEDS: METOPROLOL SUCCINATE (ER) 100 MG TAB.ER.24H PO SCH (22:44)
[2018-01-15 01:39] LABS: Glucose,Whole Blood 248 mg/dL (75-99)
[2018-01-15] MEDS: ACETAMINOPHEN TAB 325 MG TAB PO PRN ×2 (05:06→17:53)
[2018-01-15 05:58] LABS: Glucose,Whole Blood 327 mg/dL (75-99)
[2018-01-15 06:35] LABS: Basophils # (A) 0.1 k/uL (0-0.2); Basophils % (A) 1 %; Eosinophils # (A) 0.2 k/uL (0-0.7); Eosinophils % (A) 4 %; HGB 13.8 gm/dL (13.0-17.5); Lymphocytes # (A) 1.5 k/uL (1.0-4.8); Lymphocytes % (A) 23 %; MCH 32.3 pg (25.0-35.0); MCHC 33.6 g/dL (31.0-37.0); Mean Platelet Volume 8.4; Monocytes # (A) 0.4 k/uL (0-1.0); Monocytes % (A) 6 %; Neutrophils # (A) 4.1 k/uL (1.3-7.7); Neutrophils % (A) 65 %; Platelet Count 106 k/uL (150-450); RBC 4.27 m/uL (4.30-5.90); RDW 15.3 % (11.5-15.5); WBC 6.4 k/uL (3.8-10.6)
[2018-01-15] MEDS: ASPIRIN 325 MG TAB PO SCH (06:55)
[2018-01-15] MEDS: ASCORBIC ACID 500 MG TAB PO SCH (06:55)
[2018-01-15] MEDS: CHOLECALCIFEROL 1,000 UNIT TAB PO SCH (06:55)
[2018-01-15] MEDS: CYANOCOBALAMIN 500 MCG TAB PO SCH (06:56)
[2018-01-15] MEDS: EZETIMIBE 10 MG TAB PO SCH (06:56)
[2018-01-15] MEDS: GABAPENTIN 300 MG CAP PO SCH ×3 (06:56→22:14)
[2018-01-15] MEDS: INSULIN ASPART 100 UNIT/ML 1 ML 10 ML VIAL SQ SCH ×5 (06:58→22:10)
[2018-01-15 07:40] LABS: Anion Gap 8 mmol/L; Blood Urea Nitrogen 19 mg/dL (9-20); Calcium 8.8 mg/dL (8.4-10.2); Carbon Dioxide 27 mmol/L (22-30); Chloride 100 mmol/L (98-107); Cholesterol 231 mg/dL (<200); Glucose 333 mg/dL (74-99); HDL Cholesterol 51 mg/dL (40-60); Magnesium 1.6 mg/dL (1.6-2.3); Phosphorus 3.1 mg/dL (2.5-4.5); Potassium 4.5 mmol/L (3.5-5.1); Sodium 135 mmol/L (137-145)
[2018-01-15 08:00] LABS: Triglycerides 990 mg/dL (<150)
[2018-01-15] MEDS: HEPARIN SOD,PORK IN 0.45% NACL 25,000 UNIT in 0.45% NACL 1 500ML.BAG IV SCH ×2 (08:05→23:15)
[2018-01-15] MEDS: LISINOPRIL 20 MG TAB PO SCH (08:24)
[2018-01-15] MEDS: LORATADINE 10 MG TAB PO SCH (08:24)
[2018-01-15] MEDS ORDERED: INSULIN DETEMIR 100 UNIT/ML 10 ML VIAL SQ SCH (09:00)
[2018-01-15] MEDS ORDERED: SODIUM CHLORIDE 0.9% 1,000 ML in EMPTY BAG 1 BAG IV ONE (09:15)
[2018-01-15] MEDS ORDERED: ATORVASTATIN 80 MG TAB PO STA (09:15)
[2018-01-15] MEDS ORDERED: ALPRAZolam 0.5 MG TAB PO PRN (09:15)
[2018-01-15 09:19] LABS: INR 1.7 (<1.2); Prothrombin Time 15.5 sec (9.0-12.0)
[2018-01-15 11:32] LABS: Glucose,Whole Blood 219 mg/dL (75-99)
[2018-01-15] MEDS ORDERED: LIDOCAINE 1% INJ 10MG/ML (20 ML MDV) ONE (11:34)
[2018-01-15] MEDS ORDERED: VERAPAMIL 2.5 MG/ML 2 ML AMP ONE (11:34)
[2018-01-15] MEDS ORDERED: MIDAZOLAM 2 MG/2 ML VIAL ONE (11:34)
--- NOTE | 2018-01-15 11:52 | P.PN ---
Subjective Progress Note Date: 01/15/18 Principal diagnosis: ICD firing Doing well, no cp or sob. Objective - Vital Signs Vital signs: Vital Signs Temp 98.0 F 01/15/18 09:22 Pulse 65 01/15/18 11:03 Resp 18 01/15/18 11:03 BP 140/72 01/15/18 09:22 Pulse Ox 97 01/15/18 09:22 Intake & Output 01/14/18 01/15/18 01/15/18 18:59 06:59 18:59 Intake Total 240 282.315 457.685 Output Total 350 Balance 240 282.315 107.685 Weight 95.254 kg 94.7 kg Intake: IV 240 .9 @ 20 240 Intake, IV Titration 282.315 217.685 Amount Heparin Sod,Pork in 0.45% 282.315 217.685 NaCl 25,000 unit In 0.45 % NaCl 1 500ml.bag @ 10.5 UNITS/KG/HR 20 mls/hr IV .Q24H [facility] Rx#:[id number] Oral 240 Output: Urine 350 Other: Voiding Method Toilet Urinal # Voids 0 1 1 - Exam Constitutional: No acute distress, conversant, pleasant Eyes:Anicteric sclerae, moist conjunctiva, no lid-lag, PERRLA, ENMT: Oropharynx clear, no erythema, exudates Neck: Supple, FROM, no masses, or JVD, No carotid bruits, No thyromegaly Lungs: Clear to auscultation, Clear to percussion, Normal respiratory effort, no accessory muscle use Cardiovascular: Heart regular in rate and rhythm, No murmurs, gallops, or rubs, No peripheral edema Abdominal: Soft, Nontender, no guarding, rebound or rigidity, Normoactive bowel sounds, No hepatomegaly, No splenomegaly, No palpable mass Skin: Normal temperature, tone, texture, turgor, no induration, No subcutaneous nodules, No rash, lesions, No ulcers Extremities: No digital cyanosis, No clubbing, Pedal pulses intact and symmetrical, Radial pulses intact and symmetrical, No calf tenderness Psychiatric: Alert and oriented to person, place and time, appropriate affect, intact judgement Neuro: Muscles Strength 5/5 in all 4 extremities, Sensation to light touch grossly present throughout, Cranial nerves II-XII grossly intact, no focal sensory deficits - Labs CBC & Chem 7: 07/18/18 06:09 01/15/18 06:09 Labs: Abnormal Lab Results - Last 24 Hours (Table) 01/14/18 01/14/18 01/14/18 Range/Units 13:12 16:47 16:50 RBC (4.30-5.90) m/uL Plt Count (150-450) k/uL PT (9.0-12.0) sec INR (<1.2) APTT (22.0-30.0) sec Sodium (137-145) mmol/L Glucose (74-99) mg/dL POC Glucose (mg/dL) 272 H 320 H (75-99) mg/dL Total Creatine Kinase 50 L (55-170) U/L Troponin I 0.061 H* (0.000-0.034) ng/mL Triglycerides (<150) mg/dL Cholesterol (<200) mg/dL 01/14/18 01/14/18 01/14/18 Range/Units 19:08 20:52 21:10 RBC (4.30-5.90) m/uL Plt Count (150-450) k/uL PT (9.0-12.0) sec INR (<1.2) APTT 36.3 H (22.0-30.0) sec Sodium (137-145) mmol/L Glucose (74-99) mg/dL POC Glucose (mg/dL) 244 H (75-99) mg/dL Total Creatine Kinase 50 L (55-170) U/L Troponin I 0.049 H* (0.000-0.034) ng/mL Triglycerides (<150) mg/dL Cholesterol (<200) mg/dL 01/15/18 01/15/18 01/15/18 Range/Units 00:43 01:36 05:56 RBC (4.30-5.90) m/uL Plt Count (150-450) k/uL PT (9.0-12.0) sec INR (<1.2) APTT 42.8 H (22.0-30.0) sec Sodium (137-145) mmol/L Glucose (74-99) mg/dL POC Glucose (mg/dL) 248 H 327 H (75-99) mg/dL Total Creatine Kinase (55-170) U/L Troponin I (0.000-0.034) ng/mL Triglycerides (<150) mg/dL Cholesterol (<200) mg/dL 01/15/18 01/15/18 01/15/18 Range/Units 06:09 06:09 07:29 RBC 4.27 L (4.30-5.90) m/uL Plt Count 106 L (150-450) k/uL PT (9.0-12.0) sec INR (<1.2) APTT 56.9 H (22.0-30.0) sec Sodium 135 L (137-145) mmol/L Glucose 333 H (74-99) mg/dL POC Glucose (mg/dL) (75-99) mg/dL Total Creatine Kinase (55-170) U/L Troponin I (0.000-0.034) ng/mL Triglycerides 990 H (<150) mg/dL Cholesterol 231 H (<200) mg/dL 01/15/18 Range/Units 07:29 RBC (4.30-5.90) m/uL Plt Count (150-450) k/uL PT 15.5 H (9.0-12.0) sec INR 1.7 H (<1.2) APTT (22.0-30.0) sec Sodium (137-145) mmol/L Glucose (74-99) mg/dL POC Glucose (mg/dL) (75-99) mg/dL Total Creatine Kinase (55-170) U/L Troponin I (0.000-0.034) ng/mL Triglycerides (<150) mg/dL Cholesterol (<200) mg/dL Assessment and Plan Plan: -Ventricular tachycardia, sustained, defibrillator firing: Plan for cath today Tele Heparin gtt Cardiology following -Hx of atrial Fibrillation s/p ablation, CHF, Diabetes Mellitus type 2, Essential hypertension: Stable Resume home meds. -DVT prophylaxis: Already on heparin
--- NOTE | 2018-01-15 14:08 | P.PN ---
Subjective Progress Note Date: 01/15/18 This is a pleasant 62-year-old gentleman who sees Dr. Morton in the office on regular basis with a past medical history significant for coronary artery disease and status post coronary artery that is grafting with unknown details at this point, known severe ischemic cardiomyopathy and status post ICD, paroxysmal atrial fibrillation, hypertension, dyslipidemia, was sent directly from our office to the emergency room after he had an episode of sustained VT requiring ICD shocks. The patient was experiencing symptoms of chest discomfort started about 2 weeks ago. He stated that with his normal activities he does not have any symptoms of chest pain or chest discomfort but with extreme exertion like when he works at his backyard he developed chest discomfort in the mid of the chest, as a pressure, without any radiation to the arm or neck or shoulders and without any associated symptoms of shortness of breath, sweating, dizziness or lightheadedness, or syncope. The chest discomfort lasts only for few minutes. He only did have to episodes of chest discomfort. Because of that the patient was scheduled to undergo a stress test. White he was walking on the treadmill he developed a syncopal episode and was found to have an episode of V. tach requiring ICD shocks. The stress test itself was performed and did show an area of ischemia involving the anterior wall of the left ventricle with a scar involving the inferior wall of the left ventricle. Because of that the patient was sent directly to the emergency room. Currently the patient is chest pain-free. He is hemodynamically stable. The EKG showed sinus rhythm with nonspecific ST and T wave abnormality seems to be diffuse. The CBC and BMP are within normal limits. Vital signs are significantly elevated at 990. Stefanie came back at 0.014, 0.061 0.049. Echocardiogram showed moderate to severely impaired LV with an ejection fraction of 30-35%. Objective - Vital Signs Vital signs: Vital Signs Temp 97.8 F 01/15/18 12:18 Pulse 66 01/15/18 12:18 Resp 18 01/15/18 12:18 BP 123/75 01/15/18 12:18 Pulse Ox 97 01/15/18 12:18 Intake & Output 01/14/18 01/15/18 01/15/18 18:59 06:59 18:59 Intake Total 240 282.315 457.685 Output Total 350 Balance 240 282.315 107.685 Weight 95.254 kg 94.7 kg Intake: IV 240 .9 @ 20 240 Intake, IV Titration 282.315 217.685 Amount Heparin Sod,Pork in 0.45% 282.315 217.685 NaCl 25,000 unit In 0.45 % NaCl 1 500ml.bag @ 10.5 UNITS/KG/HR 20 mls/hr IV .Q24H [facility] Rx#:[id number] Oral 240 Output: Urine 350 Other: Voiding Method Toilet Urinal # Voids 0 1 2 - Exam PHYSICAL EXAMINATION: HEENT: Head is atraumatic, normocephalic. Pupils equal, round. Neck is supple. There is no elevated jugular venous pressure. HEART EXAMINATION: Heart sounds regular, S1 and S2 normal. No murmur or gallop heard. CHEST EXAMINATION: Lungs are clear to auscultation and precussion. No chest wall tenderness is noted on palpation or with deep breathing. ABDOMEN: Soft, nontender. Bowel sounds are heard. No organomegaly noted. EXTREMITIES: 2+ peripheral pulses with no evidence of peripheral edema and no calf tenderness noted. NEUROLOGIC patient is awake, alert and oriented x3. . - Labs CBC & Chem 7: 01/15/18 06:09 01/15/18 06:09 Labs: Abnormal Lab Results - Last 24 Hours (Table) 01/14/18 01/14/18 01/14/18 Range/Units 16:47 16:50 19:08 RBC (4.30-5.90) m/uL Plt Count (150-450) k/uL PT (9.0-12.0) sec INR (<1.2) APTT 36.3 H (22.0-30.0) sec Sodium (137-145) mmol/L Glucose (74-99) mg/dL POC Glucose (mg/dL) 320 H (75-99) mg/dL Total Creatine Kinase 50 L (55-170) U/L Troponin I 0.061 H* (0.000-0.034) ng/mL Triglycerides (<150) mg/dL Cholesterol (<200) mg/dL 01/14/18 01/14/18 01/15/18 Range/Units 20:52 21:10 00:43 RBC (4.30-5.90) m/uL Plt Count (150-450) k/uL PT (9.0-12.0) sec INR (<1.2) APTT 42.8 H (22.0-30.0) sec Sodium (137-145) mmol/L Glucose (74-99) mg/dL POC Glucose (mg/dL) 244 H (75-99) mg/dL Total Creatine Kinase 50 L (55-170) U/L Troponin I 0.049 H* (0.000-0.034) ng/mL Triglycerides (<150) mg/dL Cholesterol (<200) mg/dL 01/15/18 01/15/18 01/15/18 Range/Units 01:36 05:56 06:09 RBC (4.30-5.90) m/uL Plt Count (150-450) k/uL PT (9.0-12.0) sec INR (<1.2) APTT (22.0-30.0) sec Sodium 135 L (137-145) mmol/L Glucose 333 H (74-99) mg/dL POC Glucose (mg/dL) 248 H 327 H (75-99) mg/dL Total Creatine Kinase (55-170) U/L Troponin I (0.000-0.034) ng/mL Triglycerides 990 H (<150) mg/dL Cholesterol 231 H (<200) mg/dL 01/15/18 01/15/18 01/15/18 Range/Units 06:09 07:29 07:29 RBC 4.27 L (4.30-5.90) m/uL Plt Count 106 L (150-450) k/uL PT 15.5 H (9.0-12.0) sec INR 1.7 H (<1.2) APTT 56.9 H (22.0-30.0) sec Sodium (137-145) mmol/L Glucose (74-99) mg/dL POC Glucose (mg/dL) (75-99) mg/dL Total Creatine Kinase (55-170) U/L Troponin I (0.000-0.034) ng/mL Triglycerides (<150) mg/dL Cholesterol (<200) mg/dL 01/15/18 Range/Units 11:30 RBC (4.30-5.90) m/uL Plt Count (150-450) k/uL PT (9.0-12.0) sec INR (<1.2) APTT (22.0-30.0) sec Sodium (137-145) mmol/L Glucose (74-99) mg/dL POC Glucose (mg/dL) 219 H (75-99) mg/dL Total Creatine Kinase (55-170) U/L Troponin I (0.000-0.034) ng/mL Triglycerides (<150) mg/dL Cholesterol (<200) mg/dL Assessment and Plan Assessment: #1 an episode of sustained V. tach during exercise stress testing requiring ICD shocks #2 known severe underlying coronary artery disease and status post CABG #3 chest discomfort seems to be anginal #4 abnormal myocardial perfusion imaging stress test #5 severe ischemic cardiomyopathy and status post AICD #6 multiple comorbid conditions including hypertension and dyslipidemia #7 paroxysmal atrial fibrillation Plan: From cardiology's perspective, medications were reviewed and will continue the same. Patient will undergo cardiac catheterization by Dr. Land tomorrow. Further recommendations to follow. RN [facility] note has been reviewed, I agree with a documented findings and plan of care. Patient was seen and examined.
[2018-01-15] MEDS ORDERED: INSULIN ASPART SQ SCH (16:00)
[2018-01-15 16:39] LABS: Glucose,Whole Blood 326 mg/dL (75-99)
[2018-01-15] MEDS: DIGOXIN 125 MCG TAB PO SCH (17:38)
[2018-01-15] MEDS: SPIRONOLACTONE 25 MG TAB PO SCH (17:39)
[2018-01-15] MEDS: FIASP SQ SCH (17:39)
[2018-01-15] MEDS: WARFARIN 2.5 MG TAB PO SCH (17:39)
[2018-01-15] MEDS: TOUJEO INSULIN SQ SCH ×2 (18:01→22:13)
[2018-01-15] MEDS ORDERED: ATORVASTATIN 20 MG TAB PO SCH (21:00)
[2018-01-15 21:37] LABS: Glucose,Whole Blood 252 mg/dL (75-99)
[2018-01-15] MEDS: METOPROLOL SUCCINATE (ER) 100 MG TAB.ER.24H PO SCH (22:11)
[2018-01-15] MEDS: FLUVASTATIN 20 MG PO SCH (22:11)
[2018-01-15] MEDS: TOUJEO SQ SCH (22:14)
[2018-01-15] MEDS: ALPRAZolam 0.25 MG TAB PO PRN (22:27)
[2018-01-16 06:20] LABS: Glucose,Whole Blood 286 mg/dL (75-99)
[2018-01-16 06:30] LABS: INR 1.3 (<1.2)
[2018-01-16] MEDS: ASCORBIC ACID 500 MG TAB PO SCH (06:35)
[2018-01-16] MEDS: EZETIMIBE 10 MG TAB PO SCH (06:39)
[2018-01-16] MEDS: CHOLECALCIFEROL 1,000 UNIT TAB PO SCH (06:39)
[2018-01-16] MEDS: CYANOCOBALAMIN 500 MCG TAB PO SCH (06:39)
[2018-01-16] MEDS: ASPIRIN 325 MG TAB PO SCH (06:40)
[2018-01-16] MEDS: GABAPENTIN 300 MG CAP PO SCH ×3 (06:40→20:48)
[2018-01-16] MEDS: LISINOPRIL 20 MG TAB PO SCH (06:41)
[2018-01-16] MEDS: SPIRONOLACTONE 25 MG TAB PO SCH (06:42)
[2018-01-16] MEDS: LORATADINE 10 MG TAB PO SCH (06:42)
[2018-01-16] MEDS: INSULIN ASPART 100 UNIT/ML 1 ML 10 ML VIAL SQ SCH ×4 (06:45→20:46)
[2018-01-16] MEDS: FIASP SQ SCH ×3 (08:26→16:52)
[2018-01-16] MEDS ORDERED: IV FLUID CONTINUATION 1,000 ML IV ONE (09:45)
[2018-01-16] MEDS ORDERED: MIDAZOLAM 2 MG/2 ML VIAL ONE (09:51)
[2018-01-16] MEDS ORDERED: LIDOCAINE 1% INJ 10MG/ML (20 ML MDV) ONE (09:51)
[2018-01-16] MEDS ORDERED: MIDAZOLAM 2 MG/2 ML VIAL IV ONE (10:24)
[2018-01-16] MEDS ORDERED: LIDOCAINE 1% INJ 10MG/ML (20 ML MDV) SQ ONE (10:30)
[2018-01-16] MEDS ORDERED: IOPAMIDOL-370 125ML BTL INJ ONE (10:58)
[2018-01-16] MEDS ORDERED: RX INFO: IV CONTRAST WAS GIVEN 1 EACH MISC MISCELLANE PRN (11:07)
[2018-01-16] MEDS ORDERED: SODIUM CHLORIDE 0.9% 1,000 ML IV SCH (11:15)
[2018-01-16 11:32] LABS: Glucose,Whole Blood 210 mg/dL (75-99)
--- NOTE | 2018-01-16 12:13 | CC ---
CARDIAC CATHETERIZATION REPORT DATE OF SERVICE: 01/16/2018 PERFORMING PHYSICIAN: Edi Land MD, [place]. PROCEDURE PERFORMED: 1. Selective left and right coronary angiogram. 2. Left internal mammary artery angiogram. 3. SVG to diagonal angiogram. 4. SVG to left circumflex angiogram. 5. SVG to RCA angiogram. 6. Left heart catheterization. INDICATION: This is a pleasant 62-year-old gentleman who sees Dr. Morton in the office as an outpatient who underwent a stress test and that showed anterior ischemia. A heart catheterization was recommended for further clarification. As a matter of fact, the patient on the stress test developed cardiac arrest with V. tach, require ICD shocks. COMPLICATION: None. LEVEL OF SEDATION: Moderate sedation length of 34 minutes. PROCEDURE DESCRIPTION: After obtaining an informed consent, the patient was brought to the cardiac laborer cheesemaking. The right common femoral artery was cannulated using micropuncture technique, the micropuncture wire passed easily, then I placed a 6-Bulgarian sheath in the right common femoral artery. After that, I did selective left and right coronary angiogram using JL4 and JR4 catheters. Left internal mammary artery angiogram, SVG to diagonal and SVG to OM angiogram was performed using the JR4 catheter. The SVG to RCA was performed using RCB catheter. Left heart catheterization was performed using pigtail catheter. The procedure was completed without any complication. SELECTIVE CORONARY ANGIOGRAM: 1. The left main has mild disease only. It bifurcates into the left circumflex and left anterior descending artery. 2. The left circumflex is a moderate caliber vessel. The proximal left circumflex has a lesion appeared to be in the range of 70%. The mid left circumflex and distal left circumflex itself appears to be angiographically normal. 3. The LAD: The proximal LAD has a tight lesion, appeared to be in the range of 70%. This is by the bifurcation of the first diagonal branch which has a tight long tubular lesion, appeared to be in the range of 70% to 80%. The LAD after that is occluded. 4. The RCA is a large caliber vessel and it is a dominant vessel. The RCA from the ostium until the mid, has a long tubular lesion appeared to be in the range of 80% to 90%. The RCA distally has another focal lesion appeared to be in the range of 70% to 80%. CORONARY BYPASS ANGIOGRAM: 1. The HELTON to LAD is patent. 2. The SVG to diagonal is occluded. 3. The SVG to OM is patent. 4. The SVG to RCA is occluded. CONCLUSION: 1. Severe triple-vessel coronary artery disease. 2. Patent HELTON to LAD. 3. Patent SVG to OM. 4. Occluded SVG to diagonal. 5. Occluded SVG to RCA. Giving the patient anatomy as well as his age and being diabetic, I did recommend the patient to be seen by a surgeon for the evaluation of redo CABG. If the patient turned to be high risk for redo CABG, we might bring him back and do balloon angioplasty of the diagonal as well as the RCA. MMODL / IJN: [id number] /
[2018-01-16] MEDS: ACETAMINOPHEN TAB 325 MG TAB PO PRN (13:20)
--- NOTE | 2018-01-16 13:47 | P.GSCN ---
History of Present Illness Consult date: 01/16/18 Reason for Consult: Coronary artery disease, occlusion of bypass grafts, surgical recommendations regarding redo CABG versus high risk stenting. Requesting physician: Luis Morton History of present illness: This is a 62-year-old male patient who follows with Dr. Naman Prasad on an outpatient basis. He has a previous medical history of coronary artery disease with bypass surgery 4 vessels with modified [place] maze in 2008, ischemic cardiomyopathy with [employer] Bob ICD placement in 2009, paroxysmal atrial fibrillation with cardioversion 3 and ablation 3 currently on Coumadin, hypertension, hyperlipidemia, myocardial infarction, insulin-dependent diabetes mellitus, previous tobacco dependence, and significant family history of premature coronary artery disease with 1 brother having stenting done and his other brother having bypass surgery, both before the age of 60. He has been following on an outpatient basis with Dr. Last for cardiology. He began experiencing exertional chest pain without radiation, shortness of breath, any other associated symptoms. He states he did not have this chest pain at rest. He underwent a treadmill stress test, during the stress test he went into V. tach and was shocked by his internal defibrillator. The stress test did demonstrate anterior apical ischemia. He was brought to [facility], underwent heart catheterization this morning, which demonstrated patent HELTON to the LAD and radial artery to the obtuse marginal, but complete occlusion of the saphenous vein grafts to the diagonal artery and RCA. Dr. Meléndez from cardiothoracic surgery was consulted for recommendations of redo coronary artery bypass grafting versus high-risk stenting. Review of Systems Review of systems was completed and was negative except as noted. - Constitutional Reports night sweats - Cardiovascular Reports chest pain, Reports decreased exercise tolerance Past Medical History Past Medical History: Atrial Fibrillation, Coronary Artery Disease (CAD), Chest Pain / Angina, Heart Failure, Diabetes Mellitus, Hyperlipidemia, Hypertension, Myocardial Infarction ([place]) Additional Past Medical History / Comment(s): ischemic cardiomyopathy per old medical record-pt denies, bakers cyst LLE, tinnitis R ear, diverticulosis / benign colon polyp Last Myocardial Infarction Date:: 1993 History of Any Multi-Drug Resistant Organisms: None Reported Past Surgical History: AICD, Appendectomy, Cardiac Ablation, Cholecystectomy, Coronary Bypass/CABG, Ear Surgery, Heart Catheterization, Pacemaker Additional Past Surgical History / Comment(s): 2008 CABG 4 vessel, ccaths x 2, cardioversions x 3, cardiac ablation for afib/flutter x 3, Dual chamber AICD/ PACEMAKER (ST. Bob), R ear surgery, abnormal stress test december 2017. colonoscopy /bx-neg Past Anesthesia/Blood Transfusion Reactions: No Reported Reaction Type of Cardiac Device: Biventricular Pacemaker, AICD Device Placement Date:: 2009 Past Psychological History: No Psychological Hx Reported Smoking Status: Former smoker Past Alcohol Use History: None Reported Past Drug Use History: None Reported - Past Family History Father Additional Family Medical History / Comment(s): Father has a pacer and is 84 yrs old. Mother Family Medical History: Cancer, Coronary Artery Disease (CAD) Additional Family Medical History / Comment(s): Mother had a pacer. She of breast cancer with mets to her brain. Brother(s) Family Medical History: Coronary Artery Disease (CAD) Additional Family Medical History / Comment(s): 1 brother with cardiac stents, another brother with open-heart surgery, both before the age of 6060 years old Medications and Allergies Home Medications Medication Instructions Recorded Confirmed Type Digoxin [Digox] 125 mcg PO DAILY@1700 05/03/14 01/14/18 History Ezetimibe [Zetia] 10 mg PO DAILY 05/03/14 01/14/18 History Warfarin Sodium 2.5 mg PO SUMOWEFR 05/03/14 01/14/18 History Warfarin [Coumadin] 5 mg PO TUTHSA 06/15/14 01/14/18 History Cholecalciferol [Vitamin D3] 2,000 units PO DAILY 06/17/14 01/14/18 History Cyanocobalamin [Vitamin B-12] 500 mcg PO DAILY 12/08/14 01/14/18 History Fexofenadine HCl [Shila Allergy] 180 mg PO DAILY 05/21/16 11/04/17 History Fluvastatin Sodium 20 mg PO MOTUWETHFR 05/21/16 01/14/18 History Liraglutide [Victoza 2-Shar] 1.8 mg SQ DAILY 05/21/16 01/14/18 History Lisinopril [Zestril] 40 mg PO DAILY 05/21/16 01/14/18 History Metoprolol Succinate [Toprol XL] 200 mg PO HS 05/21/16 01/14/18 History Ascorbic Acid [Vitamin C] 500 mg PO DAILY 10/05/17 01/14/18 History Hydrochlorothiazide [Hydrodiuril] 12.5 mg PO DAILY 11/04/17 01/14/18 History Gabapentin 600 mg PO TID 01/14/18 01/14/18 History Insulin Aspart (Niacinamide) 7 unit SQ TID 01/14/18 01/14/18 History [Fiasp 100 Unit/ml Flextouch] Insulin Glargine,Hum.rec.anlog 20 units SQ DAILY 01/14/18 01/14/18 History [Toujeo Solostar] Nitroglycerin 0.4 mg SL ONCE PRN 01/14/18 01/14/18 History Spironolactone [Aldactone] 25 mg PO DAILY 01/14/18 01/14/18 History glipiZIDE [Glucotrol XL] 10 mg PO DAILY 01/14/18 01/14/18 History Allergies Allergy/AdvReac Type Severity Reaction Status Date / Time wheat Allergy Anaphylaxis Verified 01/14/18 10:27 Surgical - Exam Vital Signs Temp Pulse Resp BP Pulse Ox 98.0 F 82 18 146/74 99 01/14/18 09:49 01/14/18 09:49 01/14/18 09:49 01/14/18 09:49 01/14/18 09:49 - General well developed, well nourished, no distress, no pain - Eyes PERRL, normal ocular movement - ENT no hearing loss - Neck no masses, no bruits, trachea midline - Respiratory Lungs sounds clear bilaterally. Respirations even, nonlabored. Currently on 2 L nasal cannula with oxygen saturation 96%. - Cardiovascular S1, S2 present. Regular rate and rhythm, sinus rhythm on telemetry. Sternum stable. Palpable peripheral pulses bilaterally. No edema present. No calf pain or tenderness noted. No varicosities noted. - Abdomen Abdomen: soft, non tender, bowel sounds - Genitourinary Deferred - Rectum Deferred - Integumentary Well-healed sternal incision present. Well-healed left radial arterial harvest incision present. Well-healed right lower extremity EVH incisions present no rash, no growths, no abnormal pigmentation - Neurologic normal coordination, normal sensation - Psychiatric oriented to time, oriented to person, oriented to place, speech is normal, memory intact Results - Labs 01/15/18 06:09 01/15/18 06:09 Abnormal Lab Results - Last 24 Hours (Table) 01/15/18 01/15/18 01/16/18 Range/Units 16:25 21:36 05:41 INR 1.3 H (<1.2) POC Glucose (mg/dL) 326 H 252 H (75-99) mg/dL 01/16/18 01/16/18 Range/Units 06:19 11:24 INR (<1.2) POC Glucose (mg/dL) 286 H 210 H (75-99) mg/dL - Imaging Chest x-ray: report reviewed, image reviewed EKG: image reviewed Additional studies: Heart catheterization films reviewed. Assessment and Plan (1) Coronary artery disease Current Visit: Yes Status: Chronic Code(s): I25.10 - ATHSCL HEART DISEASE OF [place] CORONARY ARTERY W/O ANG PCTRS SNOMED Code(s): 55376819 (2) Ischemic cardiomyopathy Current Visit: Yes Status: Chronic Code(s): I25.5 - ISCHEMIC CARDIOMYOPATHY SNOMED Code(s): 375613208 (3) History of coronary artery bypass graft Current Visit: Yes Status: Chronic Code(s): Z95.1 - PRESENCE OF AORTOCORONARY BYPASS GRAFT SNOMED Code(s): 925839090 (4) History of implantable cardiac defibrillator (ICD) Current Visit: Yes Status: Chronic Code(s): LKN7283 - SNOMED Code(s): 592287026 (5) Paroxysmal atrial fibrillation Current Visit: No Status: Resolved Code(s): I48.0 - PAROXYSMAL ATRIAL FIBRILLATION SNOMED Code(s): 586544915 (6) Hypertension Current Visit: Yes Status: Chronic Code(s): I10 - ESSENTIAL (PRIMARY) HYPERTENSION SNOMED Code(s): 16893978 (7) Hyperlipidemia Current Visit: Yes Status: Chronic Code(s): E78.5 - HYPERLIPIDEMIA, UNSPECIFIED SNOMED Code(s): 89911025 (8) History of myocardial infarction Current Visit: No Status: Resolved Code(s): I25.2 - OLD MYOCARDIAL INFARCTION SNOMED Code(s): 622967225 (9) History of prior ablation treatment Current Visit: No Status: Resolved Code(s): Z98.890 - OTHER SPECIFIED POSTPROCEDURAL STATES SNOMED Code(s): 571202142 (10) History of cardioversion Current Visit: No Status: Resolved Code(s): Z98.890 - OTHER SPECIFIED POSTPROCEDURAL STATES SNOMED Code(s): 10045440622961 (11) Diabetes mellitus Current Visit: Yes Status: Chronic Code(s): E11.9 - TYPE 2 DIABETES MELLITUS WITHOUT COMPLICATIONS SNOMED Code(s): 12468746 (12) Tobacco dependence in remission Current Visit: No Status: Resolved Code(s): F17.201 - NICOTINE DEPENDENCE, UNSPECIFIED, IN REMISSION SNOMED Code(s): 146253537 (13) Chest pain Current Visit: Yes Status: Acute Code(s): R07.9 - CHEST PAIN, UNSPECIFIED SNOMED Code(s): 20042783 (14) Defibrillator discharge Current Visit: Yes Status: Acute Code(s): Z45.02 - ENCNTR FOR ADJUST AND MGMT OF AUTOMATIC IMPLNTBL CARD DEFIB SNOMED Code(s): 613448937 Plan: The patient was seen and examined at the bedside. Chart/diagnostics were reviewed. Patient does state that he would prefer not to have another surgery if he can avoid it. Will order vein mapping to determine availability of conduit. Continue aspirin, statin, beta wesley. Will discuss the case in detail with Dr. Meléndez. More recommendations to follow. Thank you Dr. Morton for this consult. We look forward to working with you in the care of your patient. Time with Patient: Greater than 30
--- NOTE | 2018-01-16 15:40 | LTR ---
DATE OF SERVICE: 01/11/2018 RE: Samuel James Dear Dr. Prasad; Mr. Samuel James was experiencing chest discomfort and he underwent a stress test in our office and that revealed ischemia. At that point, heart catheterization was recommended. The patient underwent heart catheterization, which showed the occlusion of two of his grafts. The SVG to RCA and SVG to diagonal are occluded. At this point, I am going to ask the surgeon to evaluate the patient for redo CABG. If it is felt that to be high risk for surgery, will bring him back and do balloon angioplasty on the diagonal as well as RCA. Thank you for allowing us to participate in his care and please do not hesitate to call if you have any question or concern. Sincerely, MD ALEXX Roche / HE: [id number] /
--- NOTE | 2018-01-16 16:14 | P.PN ---
Subjective Progress Note Date: 01/16/18 Principal diagnosis: ICD firing No chest pain or shortness of breath. Objective - Vital Signs Vital signs: Vital Signs Temp 98.0 F 01/16/18 15:01 Pulse 76 01/16/18 15:01 Resp 18 01/16/18 15:01 BP 112/56 01/16/18 15:01 Pulse Ox 95 01/16/18 15:01 Intake & Output 01/15/18 01/16/18 01/16/18 18:59 06:59 18:59 Intake Total 697.685 566.649 6548.108 Output Total 350 500 Balance 347.685 476.688 913.108 Weight 95.2 kg Intake: IV 240 100 .9 @ 20 240 Intake, IV Titration 217.685 782.255 6806.108 Amount Heparin Sod,Pork in 0.45% 217.685 476.688 288.108 NaCl 25,000 unit In 0.45 % NaCl 1 500ml.bag @ 10.5 UNITS/KG/HR 20 mls/hr IV .Q24H TERRY Rx#:[id number] Sodium Chloride 0.9% 1, 800 000 ml @ 100 mls/hr IV . Q10H TERRY Rx#:[id number] Oral 240 225 Output: Urine 350 500 Other: Voiding Method Toilet Toilet Toilet Urinal Urinal Urinal # Voids 2 1 1 # Bowel Movements 1 - Exam Constitutional: No acute distress, conversant, pleasant Eyes:Anicteric sclerae, moist conjunctiva, no lid-lag, PERRLA, ENMT: Oropharynx clear, no erythema, exudates Neck: Supple, FROM, no masses, or JVD, No carotid bruits, No thyromegaly Lungs: Clear to auscultation, Clear to percussion, Normal respiratory effort, no accessory muscle use Cardiovascular: Heart regular in rate and rhythm, No murmurs, gallops, or rubs, No peripheral edema Abdominal: Soft, Nontender, no guarding, rebound or rigidity, Normoactive bowel sounds, No hepatomegaly, No splenomegaly, No palpable mass Skin: Normal temperature, tone, texture, turgor, no induration, No subcutaneous nodules, No rash, lesions, No ulcers Extremities: No digital cyanosis, No clubbing, Pedal pulses intact and symmetrical, Radial pulses intact and symmetrical, No calf tenderness Psychiatric: Alert and oriented to person, place and time, appropriate affect, intact judgement Neuro: Muscles Strength 5/5 in all 4 extremities, Sensation to light touch grossly present throughout, Cranial nerves II-XII grossly intact, no focal sensory deficits - Labs CBC & Chem 7: 01/15/18 06:09 01/15/18 06:09 Labs: Abnormal Lab Results - Last 24 Hours (Table) 01/15/18 01/15/18 01/16/18 Range/Units 16:25 21:36 05:41 INR 1.3 H (<1.2) POC Glucose (mg/dL) 326 H 252 H (75-99) mg/dL 01/16/18 01/16/18 Range/Units 06:19 11:24 INR (<1.2) POC Glucose (mg/dL) 286 H 210 H (75-99) mg/dL Assessment and Plan Plan: -Ventricular tachycardia, sustained, defibrillator firing: Cath showing significant CAD, movie projectionist recommending cardiac surgery evaluation, pending Continue on tele Cardiology following -Hx of atrial Fibrillation s/p ablation, CHF, Diabetes Mellitus type 2, Essential hypertension: Stable Resume home meds. -DVT prophylaxis: Already on heparin
[2018-01-16] MEDS: DIGOXIN 125 MCG TAB PO SCH (16:53)
[2018-01-16] MEDS: WARFARIN 5 MG TAB PO SCH (16:54)
[2018-01-16 17:03] LABS: Glucose,Whole Blood 272 mg/dL (75-99)
[2018-01-16 20:30] LABS: Glucose,Whole Blood 141 mg/dL (75-99)
[2018-01-16] MEDS: FLUVASTATIN 20 MG PO SCH (20:47)
[2018-01-16] MEDS: METOPROLOL SUCCINATE (ER) 100 MG TAB.ER.24H PO SCH (20:47)
[2018-01-16] MEDS: TOUJEO SQ SCH (20:52)
[2018-01-16] MEDS: ALPRAZolam 0.25 MG TAB PO PRN (20:52)
[2018-01-17] MEDS: ACETAMINOPHEN TAB 325 MG TAB PO PRN ×3 (05:56→17:07)
[2018-01-17 06:02] LABS: Glucose,Whole Blood 230 mg/dL (75-99)
[2018-01-17 06:14] LABS: INR 1.2 (<1.2); Prothrombin Time 11.7 sec (9.0-12.0)
[2018-01-17] MEDS: INSULIN ASPART 100 UNIT/ML 1 ML 10 ML VIAL SQ SCH ×4 (07:00→21:38)
[2018-01-17] MEDS: FIASP SQ SCH ×3 (07:01→17:08)
[2018-01-17] MEDS: ASPIRIN 325 MG TAB PO SCH (07:59)
[2018-01-17] MEDS: CYANOCOBALAMIN 500 MCG TAB PO SCH (07:59)
[2018-01-17] MEDS: ASCORBIC ACID 500 MG TAB PO SCH (07:59)
[2018-01-17] MEDS: CHOLECALCIFEROL 1,000 UNIT TAB PO SCH (07:59)
[2018-01-17] MEDS: EZETIMIBE 10 MG TAB PO SCH (07:59)
[2018-01-17] MEDS: LISINOPRIL 20 MG TAB PO SCH (07:59)
[2018-01-17] MEDS: SPIRONOLACTONE 25 MG TAB PO SCH (08:00)
[2018-01-17] MEDS: GABAPENTIN 300 MG CAP PO SCH ×3 (08:00→21:38)
[2018-01-17] MEDS: LORATADINE 10 MG TAB PO SCH (08:00)
[2018-01-17] MEDS ORDERED: SODIUM CHLORIDE 0.9% 1,000 ML in EMPTY BAG 1 BAG IV ONE (08:48)
[2018-01-17] MEDS ORDERED: ASPIRIN 325 MG TAB PO STA (08:48)
[2018-01-17] MEDS ORDERED: NITROGLYCERIN SL TABS 0.4 MG TAB SUBLINGUAL PRN ×2 (08:48→10:58)
[2018-01-17] MEDS ORDERED: ALPRAZolam 0.25 MG TAB PO PRN (08:48)
[2018-01-17] MEDS ORDERED: ALPRAZolam 0.5 MG TAB PO PRN (08:48)
[2018-01-17] MEDS ORDERED: ATORVASTATIN 80 MG TAB PO STA (08:51)
[2018-01-17] MEDS ORDERED: SODIUM CHLORIDE 0.9% 500 ML IV ONE (09:40)
[2018-01-17] MEDS ORDERED: MIDAZOLAM 2 MG/2 ML VIAL ONE (09:52)
[2018-01-17] MEDS ORDERED: LIDOCAINE 1% INJ 10MG/ML (20 ML MDV) ONE (09:52)
[2018-01-17] MEDS ORDERED: MIDAZOLAM 2 MG/2 ML VIAL IV ONE (10:14)
[2018-01-17] MEDS ORDERED: LIDOCAINE 1% INJ 10MG/ML (20 ML MDV) SQ ONE (10:16)
[2018-01-17] MEDS: HEPARIN SOD,PORK IN 0.45% NACL 25,000 UNIT in 0.45% NACL 1 500ML.BAG IV SCH (10:18)
[2018-01-17] MEDS ORDERED: BIVALIRUDIN 250 MG in SODIUM CHLORIDE 0.9% 40 ML IV ONE (10:19)
[2018-01-17] MEDS ORDERED: BIVALIRUDIN BOLUS 250 MG/50 ML IV ONE (10:19)
[2018-01-17] MEDS ORDERED: NITROGLYCERIN 1000MCG/10ML SYRINGE INTRACORON ONE (10:47)
[2018-01-17] MEDS ORDERED: PRASUGREL 10 MG TAB ONE (10:51)
[2018-01-17] MEDS ORDERED: PRASUGREL 10 MG TAB PO ONE (10:55)
[2018-01-17] MEDS ORDERED: IOPAMIDOL-370 125ML BTL INJ ONE (10:55)
[2018-01-17] MEDS ORDERED: HEPARIN SODIUM 1,000 UN/ML (10ML VL) ONE (10:56)
[2018-01-17] MEDS ORDERED: ZOLPIDEM 5 MG TAB PO PRN (10:58)
[2018-01-17] MEDS ORDERED: MAG HYDROX/AL HYDROX/SIMETH 30 ML CUP PO PRN (10:58)
[2018-01-17] MEDS ORDERED: ATROPINE SULFATE 0.1 MG/ML 10ML SYRINGE IV PRN (10:58)
[2018-01-17] MEDS ORDERED: RX INFO: IV CONTRAST WAS GIVEN 1 EACH MISC MISCELLANE PRN (10:58)
[2018-01-17] MEDS ORDERED: SODIUM CHLORIDE 0.9% 1,000 ML IV SCH (11:00)
--- NOTE | 2018-01-17 11:14 | LTR ---
DATE OF SERVICE: 01/17/2017 RE: Samuel James. Dear Dr. Prasad; Mr. Samuel James underwent successful stenting of the diagonal as well as LAD using a drug-eluting stent with good angiographic results and without any complication. Thank you for allowing us to participate in his care and please do not hesitate to call if you have any question or concern. Sincerely, MD ALEXX Roche / JESSYN: [id number] /
[2018-01-17 11:37] VITALS: BMI 27.7
[2018-01-17 11:54] LABS: Glucose,Whole Blood 260 mg/dL (75-99)
--- NOTE | 2018-01-17 12:23 | PTCA ---
PERCUTANEOUSTRANS CORORONARY ANGIOGRAPHY DATE OF SERVICE: 01/17/2018 PERFORMING PHYSICIAN: Edi Land MD, hospital account liaison. PROCEDURE PERFORMED: 1. Successful stenting of the first diagonal branch of the LAD using 2.0 x 22 mm Sinan drug-eluting stent with good angiographic results and reduction of stenosis from 80% to 0%. 2. Successful stenting of the proximal left anterior descending artery using 2.5 x 12 mm Xience CHALINO with good angiographic results. INDICATION: This is a pleasant 62-year-old gentleman who sees Dr. Morton in the office as an outpatient with history of coronary artery disease and status post coronary artery bypass grafting, severe ischemic cardiomyopathy and status post AICD, as well as paroxysmal atrial fibrillation, who underwent a stress test in our office for chest discomfort and during the stress test, the patient developed V tach, required ICD shocks. He underwent a myocardial perfusion imaging stress test and that revealed anterior ischemia. Because of that, a heart catheterization was recommended. Mr. James underwent a heart catheterization yesterday and that showed severe triple-vessel CAD with patent HELTON to LAD and patent vein graft to left circumflex with occluded vein graft to diagonal and occluded vein graft to RCA. He was seen by a surgeon for further evaluation of redo CABG and he was turn down to be high risk. Because of that, a PCI of the diagonal was recommended. APPROACH: Right common femoral artery. COMPLICATION: None. LEVEL OF SEDATION: Moderate, with sedation length of 36 minutes. PROCEDURE DESCRIPTION: After obtaining an informed consent, the patient was brought to the cardiac orthodontic lab technician. The right common femoral artery was cannulated using micropuncture technique, the micropuncture wire passed easily then I placed a 6-Iraqi sheath in the right common femoral artery. After that, I did start anticoagulation using Angiomax. Subsequently the left main was engaged using an XP35 LAD guide. I did wire the LAD and then diagonal using a whisper wire. Subsequently I did balloon angioplasty using 2.0 x 12 mm balloon and the balloon angioplasty was performed for both the diagonal as well as proximal LAD. I attempted advancing 2.0 x 22 mm Sunburst drug-eluting stent to the diagonal, but the stent will not cross the lesion in the diagonal and for that reason I did double wire the diagonal using beside the whisper wire and a run-through wire. I attempted advancing the stent again over the whisper and the stent will not cross the lesion, but finally I was able to advance the stent over the run-through. The stent was positioned under fluoroscopy guidance and deployed under its nominal pressure with the following angiogram showed good angiographic results. For the lesion in the LAD, I did deploy a 2.5 x 12 mm Xience CHALINO where the stent was positioned again under fluoroscopy guidance and deployed under its nominal pressure. The following angiogram showed good angiographic results without any complication. POSTPROCEDURE MANAGEMENT: 1. Dual antiplatelet therapy. 2. Risk factors modifications. 3. Follow up with the patient. MMODL / IJN: [id number] /
[2018-01-17] MEDS ORDERED: MORPHINE SULFATE 2 MG/ML SYRINGE IVP ONE (12:45)
[2018-01-17] MEDS ORDERED: FUROSEMIDE 10 MG/ML 4 ML VIAL IV STA (13:56)
--- NOTE | 2018-01-17 14:22 | P.PN ---
Subjective Progress Note Date: 01/17/18 Principal diagnosis: ICD firing Patient just came back from heart catheterization, he was having severe back pain, was given some morphine. Objective - Vital Signs Vital signs: Vital Signs Temp 98.1 F 01/17/18 07:57 Pulse 68 01/17/18 07:57 Resp 18 01/17/18 07:57 BP 131/75 01/17/18 07:57 Pulse Ox 95 01/17/18 07:57 Intake & Output 01/16/18 01/17/18 01/17/18 18:59 06:59 18:59 Intake Total 1789.286 5621 Output Total 500 Balance 4639.719 2323 Weight 95.3 kg 95.3 kg Intake: IV 100 288 Intake, IV Titration 1088.108 Amount Heparin Sod,Pork in 0.45% 288.108 NaCl 25,000 unit In 0.45 % NaCl 1 500ml.bag @ 10.5 UNITS/KG/HR 20 mls/hr IV .Q24H TERRY Rx#:[id number] Sodium Chloride 0.9% 1, 800 000 ml @ 100 mls/hr IV . Q10H TERRY Rx#:[id number] Oral 405 960 Output: Urine 500 Other: Voiding Method Toilet Toilet Toilet Urinal Urinal Urinal # Voids 1 1 # Bowel Movements 1 - Exam Constitutional: No acute distress, conversant, pleasant Eyes:Anicteric sclerae, moist conjunctiva, no lid-lag, PERRLA, ENMT: Oropharynx clear, no erythema, exudates Neck: Supple, FROM, no masses, or JVD, No carotid bruits, No thyromegaly Lungs: Clear to auscultation, Clear to percussion, Normal respiratory effort, no accessory muscle use Cardiovascular: Heart regular in rate and rhythm, No murmurs, gallops, or rubs, No peripheral edema Abdominal: Soft, Nontender, no guarding, rebound or rigidity, Normoactive bowel sounds, No hepatomegaly, No splenomegaly, No palpable mass Skin: Normal temperature, tone, texture, turgor, no induration, No subcutaneous nodules, No rash, lesions, No ulcers Extremities: No digital cyanosis, No clubbing, Pedal pulses intact and symmetrical, Radial pulses intact and symmetrical, No calf tenderness Psychiatric: Alert and oriented to person, place and time, appropriate affect, intact judgement Neuro: Muscles Strength 5/5 in all 4 extremities, Sensation to light touch grossly present throughout, Cranial nerves II-XII grossly intact, no focal sensory deficits - Labs CBC & Chem 7: 01/15/18 06:09 01/15/18 06:09 Labs: Abnormal Lab Results - Last 24 Hours (Table) 01/16/18 01/16/18 01/17/18 Range/Units 16:30 20:28 05:27 INR 1.2 H (<1.2) POC Glucose (mg/dL) 272 H 141 H (75-99) mg/dL 01/17/18 01/17/18 Range/Units 06:00 11:42 INR (<1.2) POC Glucose (mg/dL) 230 H 260 H (75-99) mg/dL Assessment and Plan Plan: -Ventricular tachycardia, sustained, defibrillator firing: Cath showing significant CAD, appliance parts counter clerk recommended cardiac surgery evaluation--- patient was considered high risk for re-do CABG surgery Because of that he had 2 stents placement today through heart catheterization. Continue on tele Continue dual antiplatelet therapy, beta wesley and statin Cardiology following -Hx of atrial Fibrillation s/p ablation, CHF, Diabetes Mellitus type 2, Essential hypertension: Stable Resume home meds including anticoagulation with Coumadin. -DVT prophylaxis: Already on heparin
[2018-01-17 16:30] LABS: Glucose,Whole Blood 205 mg/dL (75-99)
[2018-01-17] MEDS: DIGOXIN 125 MCG TAB PO SCH (17:07)
[2018-01-17] MEDS: WARFARIN 2.5 MG TAB PO SCH (17:07)
[2018-01-17 20:49] LABS: Glucose,Whole Blood 242 mg/dL (75-99)
[2018-01-17] MEDS: TOUJEO SQ SCH (21:38)
[2018-01-17] MEDS: FLUVASTATIN 20 MG PO SCH (21:38)
[2018-01-17] MEDS: METOPROLOL SUCCINATE (ER) 100 MG TAB.ER.24H PO SCH (21:38)
[2018-01-18] MEDS: ACETAMINOPHEN TAB 325 MG TAB PO PRN (03:44)
[2018-01-18 06:17] LABS: Glucose,Whole Blood 195 mg/dL (75-99)
[2018-01-18 06:37] LABS: INR 1.3 (<1.2); Prothrombin Time 12.4 sec (9.0-12.0)
[2018-01-18] MEDS: INSULIN ASPART 100 UNIT/ML 1 ML 10 ML VIAL SQ SCH (07:05)
[2018-01-18] MEDS: FIASP SQ SCH (07:05)
[2018-01-18] MEDS: CHOLECALCIFEROL 1,000 UNIT TAB PO SCH (08:40)
[2018-01-18] MEDS: ASPIRIN 325 MG TAB PO SCH (08:40)
[2018-01-18] MEDS: EZETIMIBE 10 MG TAB PO SCH (08:40)
[2018-01-18] MEDS: LORATADINE 10 MG TAB PO SCH (08:40)
[2018-01-18] MEDS: CYANOCOBALAMIN 500 MCG TAB PO SCH (08:40)
[2018-01-18] MEDS: SPIRONOLACTONE 25 MG TAB PO SCH (08:40)
[2018-01-18] MEDS: ASCORBIC ACID 500 MG TAB PO SCH (08:40)
[2018-01-18] MEDS: GABAPENTIN 300 MG CAP PO SCH (08:40)
[2018-01-18] MEDS: LISINOPRIL 20 MG TAB PO SCH (08:40)
[2018-01-18 08:44] VITALS: RESP 18
[2018-01-18] MEDS ORDERED: PRASUGREL 10 MG TAB PO SCH (11:01)
[2018-01-18 11:33] LABS: Glucose,Whole Blood 250 mg/dL (75-99)
[2018-01-18 11:35] VITALS: BP 143/81; PULSE 68; TEMP 98
--- NOTE | 2018-01-18 11:43 | P.DS ---
Providers Date of admission: 01/16/18 15:21 Expected date of discharge: 01/18/18 Attending physician: Melissa Hernadez MD Consults: 01/14/18 11:38 Consult Physician Urgent Consulting Provider: Luis Morton Consult Reason/Comments: Defibrillator discharge Do you want consulting provider notified?: Yes 01/17/18 10:58 Consult Physician Routine Consulting Provider: [facility] Consult Reason/Comments: Post Interventional patient Do you want consulting provider notified?: Already Contacted Primary care physician: [facility] Course: 62-year-old male presented to the emergency Department with chief complaint of defibrillator firing. He had few episodes of chest pain few weeks ago, form grader operator recommended that he gets a stress test. Today he was having the chemical test and right after he received the injection he passed out. He stated that he didn't feel anything. No cp, sob. No palpitations. No dizziness, didn't feel the shock. After he woke up he had no complaints. He stated that he felt like ''a million bucks''. Patient stated that he's had open-heart in 2008 and had defibrillator placed approximately a year after. He does have a history of A. fib and takes coumadin. No recent illness, no fevers or chills. Device interrogation revealed v.tach with a rate on 170. Patient was subsequently admitted to the hospital for further evaluation and management. In the emergency department all of his vital signs were within normal limits. All of his labs were within normal limits except Lipid panel that showed total cholesterol of 231, HDL 51, triglyceride 900. Patient had an echocardiogram that showed ejection fraction of 30-35%. Patient was seen in consultation with cardiology who recommended doing a heart catheterization because patient has history of ischemic cardiomyopathy and because of stress test was positive for areas of reversible ischemia. The heart catheterization showed occluded 2 vessels of the previous bypass. Cardiac surgery evaluated patient for possible redo CABG the patient was turned down because of high risk for surgery. Because of that patient had a second heart catheterization and had to have 2 stents in those 2 occluded vessels. He did well after the heart cath. Throughout the admission he did not have any arrhythmia. Because of hypertriglyceridemia he was started on niacin. I discussed the case with the cardiology CARD FILER. Patient will only need to take aspirin for 1 month after discharge but he will need to continue to take Plavix as well as anticoagulation which will be switched to xarelto. Coumadin will be discontinued. Discharge diagnoses Ischemic cardiomyopathy status post ICD placement Coronary artery disease status post CABG and stents Ventricular tachycardia, shocked Hypertriglyceridemia Hyper cholesterolemia Patient Condition at Discharge: Stable Plan - Discharge Summary Discharge Rx Participant: No New Discharge Prescriptions: New Aspirin 81 mg PO DAILY #30 chew Clopidogrel [Plavix] 75 mg PO DAILY #30 tab Rivaroxaban [Xarelto] 15 mg PO W/SUPPER #30 tab Niacin 250 mg PO DAILY #30 tablet Continue Ezetimibe [Zetia] 10 mg PO DAILY Cholecalciferol [Vitamin D3] 2,000 units PO DAILY Cyanocobalamin [Vitamin B-12] 500 mcg PO DAILY Metoprolol Succinate [Toprol XL] 200 mg PO HS Lisinopril [Zestril] 40 mg PO DAILY Fluvastatin Sodium 20 mg PO MOTUWETHFR Liraglutide [Victoza 2-Shar] 1.8 mg SQ DAILY Fexofenadine HCl [Shila Allergy] 180 mg PO DAILY Ascorbic Acid [Vitamin C] 500 mg PO DAILY Hydrochlorothiazide [Hydrodiuril] 12.5 mg PO DAILY Gabapentin 600 mg PO TID glipiZIDE [Glucotrol XL] 10 mg PO DAILY Insulin Aspart (Niacinamide) [Fiasp 100 Unit/ml Flextouch] 7 unit SQ TID Insulin Glargine,Hum.rec.anlog [Lucasuwilbert Solostgarret] 20 units SQ DAILY Nitroglycerin 0.4 mg SL ONCE PRN PRN Reason: Chest Pain Spironolactone [Aldactone] 25 mg PO DAILY Discontinued Digoxin [Digox] 125 mcg PO DAILY@1700 Warfarin Sodium 2.5 mg PO SUMOWEFR Warfarin [Coumadin] 5 mg PO TUTHSA Discharge Medication List Ezetimibe [Zetia] 10 mg PO DAILY 05/03/14 [History] Cholecalciferol [Vitamin D3] 2,000 units PO DAILY 06/17/14 [History] Cyanocobalamin [Vitamin B-12] 500 mcg PO DAILY 12/08/14 [History] Fexofenadine HCl [Shila Allergy] 180 mg PO DAILY 05/21/16 [History] Fluvastatin Sodium 20 mg PO MOTUWETHFR 05/21/16 [History] Liraglutide [Victoza 2-Shar] 1.8 mg SQ DAILY 05/21/16 [History] Lisinopril [Zestril] 40 mg PO DAILY 05/21/16 [History] Metoprolol Succinate [Toprol XL] 200 mg PO HS 05/21/16 [History] Ascorbic Acid [Vitamin C] 500 mg PO DAILY 10/05/17 [History] Hydrochlorothiazide [Hydrodiuril] 12.5 mg PO DAILY 11/04/17 [History] Gabapentin 600 mg PO TID 01/14/18 [History] Insulin Aspart (Niacinamide) [Fiasp 100 Unit/ml Flextouch] 7 unit SQ TID [History] Insulin Glargine,Hum.rec.anlog [Toujeo Solostar] 20 units SQ DAILY 01/14/18 [ History] Nitroglycerin 0.4 mg SL ONCE PRN 01/14/18 [History] Spironolactone [Aldactone] 25 mg PO DAILY 01/14/18 [History] glipiZIDE [Glucotrol XL] 10 mg PO DAILY 01/14/18 [History] Aspirin 81 mg PO DAILY #30 chew 01/18/18 [Rx] Clopidogrel [Plavix] 75 mg PO DAILY #30 tab 01/18/18 [Rx] Niacin 250 mg PO DAILY #30 tablet 01/18/18 [Rx] Rivaroxaban [Xarelto] 15 mg PO W/SUPPER #30 tab 01/18/18 [Rx] Follow up Appointment(s)/Referral(s): Luis Morton MD [STAFF PHYSICIAN] - 2 Weeks (Office will call with follow up appointment.) Naman Prasad MD [Primary Care Provider] - 01/20/18 1:00 pm (Saturday)
--- NOTE | 2018-01-18 12:00 | P.PN ---
Subjective Progress Note Date: 01/18/18 This is a pleasant 62-year-old gentleman who sees Dr. Morton in the office on regular basis with a past medical history significant for coronary artery disease and status post coronary artery that is grafting with unknown details at this point, known severe ischemic cardiomyopathy and status post ICD, paroxysmal atrial fibrillation, hypertension, dyslipidemia, was sent directly from our office to the emergency room after he had an episode of sustained VT requiring ICD shocks. The patient was experiencing symptoms of chest discomfort started about 2 weeks ago. He stated that with his normal activities he does not have any symptoms of chest pain or chest discomfort but with extreme exertion like when he works at his backyard he developed chest discomfort in the mid of the chest, as a pressure, without any radiation to the arm or neck or shoulders and without any associated symptoms of shortness of breath, sweating, dizziness or lightheadedness, or syncope. The chest discomfort lasts only for few minutes. He only did have to episodes of chest discomfort. Because of that the patient was scheduled to undergo a stress test. White he was walking on the treadmill he developed a syncopal episode and was found to have an episode of V. tach requiring ICD shocks. The stress test itself was performed and did show an area of ischemia involving the anterior wall of the left ventricle with a scar involving the inferior wall of the left ventricle. Because of that the patient was sent directly to the emergency room. Patient did undergo cardiac catheterization by Dr. Land which revealed severe triple-vessel coronary artery disease with a patent HELTON to the LAD, patent saphenous vein graft to the OM, occluded saphenous vein graft to the diagonal and occluded saphenous vein graft to the right. A surgical consultation was requested for possible redo and the decision was made patient may benefit more from undergoing intervention. He was taken back down to the cardiac catheterization lab yesterday where he underwent angioplasty and stenting of the diagonal and LAD. Patient was seen and examined this morning, feels well, denies any chest pain, he's been up ambulating without any difficulty. EKG shows normal sinus rhythm with no acute changes. Objective - Vital Signs Vital signs: Vital Signs Temp 98 F 01/18/18 11:35 Pulse 68 01/18/18 11:35 Resp 18 01/18/18 11:35 BP 143/81 01/18/18 11:35 Pulse Ox 95 01/18/18 11:35 Intake & Output 01/17/18 01/18/18 01/18/18 18:59 06:59 18:59 Intake Total 1908 480 Balance 1908 480 Weight 95.3 kg 93.3 kg Intake: IV 288 Intake, IV Titration 420 Amount Sodium Chloride 0.9% 1, 420 000 ml @ 75 mls/hr IV . [id number] TERRY Rx#:[id number] Oral 1200 480 Other: Voiding Method Toilet Toilet Toilet Urinal # Voids 1 - Exam PHYSICAL EXAMINATION: HEENT: Head is atraumatic, normocephalic. Pupils equal, round. Neck is supple. There is no elevated jugular venous pressure. HEART EXAMINATION: Heart sounds regular, S1 and S2 normal. No murmur or gallop heard. CHEST EXAMINATION: Lungs are clear to auscultation and precussion. No chest wall tenderness is noted on palpation or with deep breathing. ABDOMEN: Soft, nontender. Bowel sounds are heard. No organomegaly noted. Right groin soft, no evidence of any hematoma EXTREMITIES: 2+ peripheral pulses with no evidence of peripheral edema and no calf tenderness noted. NEUROLOGIC patient is awake, alert and oriented x3. . - Labs CBC & Chem 7: 01/15/18 06:09 01/18/18 05:51 Labs: Abnormal Lab Results - Last 24 Hours (Table) 01/17/18 01/17/18 01/18/18 Range/Units 16:24 20:47 05:51 PT 12.4 H (9.0-12.0) sec INR 1.3 H (<1.2) POC Glucose (mg/dL) 205 H 242 H (75-99) mg/dL 01/18/18 01/18/18 Range/Units 06:16 11:29 PT (9.0-12.0) sec INR (<1.2) POC Glucose (mg/dL) 195 H 250 H (75-99) mg/dL Assessment and Plan Plan: Assessment: #1 an episode of sustained V. tach during exercise stress testing requiring ICD shocks #2 known severe underlying coronary artery disease and status post CABG #3 chest discomfort status post cardiac catheterization with subsequent stenting of the diagonal and LAD. #4 abnormal myocardial perfusion imaging stress test #5 severe ischemic cardiomyopathy and status post AICD #6 multiple comorbid conditions including hypertension and dyslipidemia #7 paroxysmal atrial fibrillation Plan Patient underwent angioplasty and stenting of the diagonal and LAD. He may be able to be discharged home from cardiology's perspective. Patient will need to be on anticoagulation along with dual antiplatelet therapy. We we checked in to see whether the patient had coverage, Xarelto will cost him $40 a month. We will start the patient on xarelto 15 mg daily, changed his Effient over to Plavix, continue a baby aspirin along with this for one month and then discontinue the aspirin. Patient will also continue on Lipitor 80 mg daily, Saturday at 10 mg daily, lisinopril 40 mg daily, metoprolol 200 mg at at bedtime , Aldactone 25 mg daily, and sublingual nitroglycerin as needed for chest pain. Follow-up appointment will be made with Dr. Morton in the office post discharge. DNP note has been reviewed, I agree with a documented findings and plan of care. Patient was seen and examined.
[2018-01-18] MEDS ORDERED: RIVAROXABAN 15 MG TAB PO SCH (17:30)
[2018-01-19] MEDS ORDERED: CLOPIDOGREL 75 MG TAB PO SCH (09:00)
[2018-01-19] MEDS ORDERED: ASPIRIN 81 MG PO SCH (09:00)
== END 2018-01-18 12:35 | disposition home or self-care (01) | DRG 246 ==
LOC: EC 09:38 → 6SEL 11:42 → OBSVTOIN 01-16 15:21
PROVIDERS: ADMIT Internal Medicine; ATTEND Internal Medicine
PROC: B2111ZZ Fluoroscopy of Multiple Coronary Arteries using Low Osmolar Contrast (ICD-10-PCS; 2018-01-16)
PROC: B2181ZZ Fluoroscopy of Left Internal Mammary Bypass Graft using Low Osmolar Contrast (ICD-10-PCS; 2018-01-16)
PROC: B2131ZZ Fluoroscopy of Multiple Coronary Artery Bypass Grafts using Low Osmolar Contrast (ICD-10-PCS; 2018-01-16)
PROC: 4A023N7 Measurement of Cardiac Sampling and Pressure, Left Heart, Percutaneous Approach (ICD-10-PCS; principal; 2018-01-16 09:40)
PROC: 027135Z Dilation of Coronary Artery, Two Arteries with Two Drug-eluting Intraluminal Devices, Percutaneous Approach (ICD-10-PCS; 2018-01-17 09:40)
DX: I25.719 Atherosclerosis of autologous vein coronary artery bypass graft(s) with unspecified angina pectoris (principal); I46.9 Cardiac arrest, cause unspecified; I47.2 Ventricular tachycardia; I11.0 Hypertensive heart disease with heart failure; I50.9 Heart failure, unspecified; Z87.891 Personal history of nicotine dependence; Z95.1 Presence of aortocoronary bypass graft; E11.9 Type 2 diabetes mellitus without complications; E78.1 Pure hyperglyceridemia; I25.2 Old myocardial infarction; I25.5 Ischemic cardiomyopathy; I25.82 Chronic total occlusion of coronary artery; I48.0 Paroxysmal atrial fibrillation; Z79.01 Long term (current) use of anticoagulants; Z79.4 Long term (current) use of insulin; Z79.82 Long term (current) use of aspirin; Z80.3 Family history of malignant neoplasm of breast; Z82.49 Family history of ischemic heart disease and other diseases of the circulatory system; Z86.010 Personal history of colon polyps; Z95.5 Presence of coronary angioplasty implant and graft; R55 Syncope and collapse; Z91.018 Allergy to other foods; K57.90 Diverticulosis of intestine, part unspecified, without perforation or abscess without bleeding; Z45.02 Encounter for adjustment and management of automatic implantable cardiac defibrillator
CPT/HCPCS: 36415; 71046; 80048; 80053; 80061; 82550; 82553; 82565; 83735; 83880; 84100; 84484; 85025; 85610; 85730; 93005; 93306; 93459; 94760; 96365; 96366; 96376; 99285

== ENCOUNTER → 2018-05-05 | Outpatient (CLI) | payer BC ==
[2018-05-05 17:19] LABS: HCT 41.5 % (39.0-53.0); MCH 30.5 pg (25.0-35.0); MCHC 33.8 g/dL (31.0-37.0); MCV 90.3 fL (80.0-100.0); Mean Platelet Volume 7.9; Platelet Count 140 k/uL (150-450); RDW 14.8 % (11.5-15.5); WBC 9.3 k/uL (3.8-10.6)
[2018-05-06 04:09] LABS: Calcium 9.3 mg/dL (8.7-10.3); Carbon Dioxide 23.8 mmol/L (21.6-31.8); Chloride 100 mmol/L (96-109); Cholesterol 201 mg/dL (0-200); Glucose 249 mg/dL (70-110); Potassium 4.4 mmol/L (3.5-5.5); Sodium 136 mmol/L (135-145)
== END | disposition home or self-care (01) ==
LOC: LABWHC1 16:21
PROVIDERS: ATTEND Internal Medicine Clinical Cardiac Electrophysiology
DX: I25.10 Atherosclerotic heart disease of native coronary artery without angina pectoris (principal); I10 Essential (primary) hypertension; E11.9 Type 2 diabetes mellitus without complications; E78.1 Pure hyperglyceridemia
CPT/HCPCS: 36415; 80048; 80061; 83721; 85027

== ENCOUNTER 2018-05-07 08:27 | Day surgery (SDC) | payer BC ==
[~2018-05-07 08:27] MED LIST changes: +ALPRAZolam 0.25 MG TAB PO PRN; +ALPRAZolam 0.5 MG TAB PO PRN; +ASPIRIN 325 MG TAB PO STA; -LACTATED RINGERS 1,000 ML IV SCH; -LIDOCAINE 1% 20 ML VIAL (10MG/ML) FOR IV START INTRADERMA PRN; +NITROGLYCERIN SL TABS 0.4 MG TAB SUBLINGUAL PRN; +SODIUM CHLORIDE 0.9% 1,000 ML in EMPTY BAG 1 BAG IV ONE
[2018-05-07] MEDS ORDERED: INSULIN ASPART 100 UNIT/ML 1 ML 10 ML VIAL SQ ONE (08:51)
[2018-05-07] MEDS ORDERED: SODIUM CHLORIDE 0.9% 1,000 ML IV ONE (09:11)
[2018-05-07 09:19] LABS: Glucose,Whole Blood 245 mg/dL (75-99)
[2018-05-07] MEDS ORDERED: MIDAZOLAM 2 MG/2 ML VIAL IV ONE ×2 (10:09→11:03)
[2018-05-07] MEDS ORDERED: LIDOCAINE 1% INJ 10MG/ML (20 ML MDV) SQ ONE (10:15)
[2018-05-07] MEDS ORDERED: BIVALIRUDIN 250 MG in SODIUM CHLORIDE 0.9% 50 ML IV ONE ×2 (10:39→11:17)
[2018-05-07] MEDS ORDERED: BIVALIRUDIN BOLUS 250 MG/50 ML IV ONE (10:39)
[2018-05-07] MEDS: NITROGLYCERIN 1000MCG/10ML SYRINGE INTRACORON ONE ×2 (11:03→11:11)
[2018-05-07] MEDS ORDERED: IOPAMIDOL-370 125ML BTL INJ ONE (11:09)
[2018-05-07] MEDS ORDERED: IOPAMIDOL-370 100ML BTL INJ ONE (11:28)
[2018-05-07] MEDS ORDERED: CLOPIDOGREL 75 MG TAB PO ONE (11:30)
[2018-05-07] MEDS ORDERED: MAG HYDROX/AL HYDROX/SIMETH 30 ML CUP PO PRN (11:33)
[2018-05-07] MEDS ORDERED: ATROPINE SULFATE 0.1 MG/ML 10ML SYRINGE IV PRN (11:33)
[2018-05-07] MEDS ORDERED: NITROGLYCERIN SL TABS 0.4 MG TAB SUBLINGUAL PRN (11:33)
[2018-05-07] MEDS ORDERED: RX INFO: IV CONTRAST WAS GIVEN 1 EACH MISC MISCELLANE PRN (11:33)
[2018-05-07] MEDS ORDERED: ZOLPIDEM 5 MG TAB PO PRN (11:33)
[2018-05-07] MEDS ORDERED: SODIUM CHLORIDE 0.9% 1,000 ML IV SCH (11:45)
--- NOTE | 2018-05-07 12:19 | LTR ---
May 07, 2018 Re: Samuel James Dear Dr. Prasad: Mr. Samuel James underwent successful stenting of the diagonal branch of the LAD using drug-eluting stent with good angiographic results. Thank you for allowing us to participate in his care and please do not hesitate to call if you have any question or concern. Sincerely, MD ALEXX Roche / HE: [id number] /
[2018-05-07] MEDS ORDERED: INSULIN ASPART 100 UNIT/ML 1 ML 10 ML VIAL SQ SCH ×2 (12:30→18:30)
--- NOTE | 2018-05-07 12:34 | CC ---
CARDIAC CATHETERIZATION REPORT DATE OF SERVICE: 05/07/2018 PERFORMING PHYSICIAN: Edi Land MD, Parts Counterman. PROCEDURE PERFORMED: 1. Selective left and right coronary angiogram. 2. HELTON to LAD angiogram. 3. SVG to left circumflex angiogram. 4. Left heart catheterization. 5. Successful stenting of the diagonal branch of the LAD using 2.0 x 23 mm Wayne drug- eluting stent and 2.5 x 18 mm Xience drug-eluting stent with good angiographic results and reduction of stenosis from 100% to 0%. INDICATION: This is a pleasant 63-year-old gentleman who sees Dr. Morton in the office as an outpatient with known history of coronary artery disease and known coronary artery LS grafting. With the last heart catheterization in December of 2017 showing severe triple- vessel coronary artery disease with patent HELTON to LAD and patent SVG to OM and occluded SVG to right coronary artery where at that point, the patient underwent successful stenting of the diagonal branch of the LAD. He was experiencing recently a chest discomfort concerning for angina and because of that, a heart catheterization was advised. APPROACH: Right common femoral artery. COMPLICATION: None. LEVEL OF SEDATION: Moderate with sedation length of 77 minutes. PROCEDURE DESCRIPTION: After obtaining an informed consent, the patient was brought to the cardiac roving tester laboratory. The right common femoral artery was cannulated using micropuncture technique, the micropuncture wire passed easily. Then I placed a 6-Mohawk sheath in the right common femoral artery. After that, I did selective left and right coronary angiogram using JL4 and JR4 catheters. HELTON to LAD angiogram was performed using the JR4 catheter and SVG to left circumflex was performed using also the JR4 catheter. Subsequently, I did perform left heart catheterization using pigtail catheter. After that, I did intervene on the the diagonal branch. Please see a separate paragraph for that. SELECTIVE CORONARY ANGIOGRAM: 1. The left main is a large caliber vessel with mild disease only. It bifurcates into left circumflex and left anterior descending artery. 2. The circumflex is 100% occluded in the proximal portion. 3. The LAD is 100% occluded in the midportion. The LAD is 100% occluded. This is by the bifurcation of a large septal patient safety attendant branches as well as a large diagonal branch. The diagonal branch is stented and the stent is occluded as well. 4. The right coronary artery is a diffuse disease from the ostium all the mid portion. The disease is reaching about 99% in the midportion. \The SVG to OM is open with disease distal to the distal anastomosis appeared to be in the range of 50% and seems to be unchanged compared to before. 5. HELTON to LAD is patent. HEMODYNAMICS: The left ventricular end-diastolic pressure was 12 mmHg and no significant gradient was seen across the aortic valve. PCI OF THE DIAGONAL: Anticoagulation was initiated using Angiomax. Subsequently, I took an XP35 LAD guide and the left main was engaged. I did wire the diagonal branch and crossed the total occlusion in the using a whisper wire with the backup support of 2.0 x 12 mm over the wire balloon. After that, I did I tried to advance 2.0 x 12 mm balloon but the balloon will not cross that area where the total occlusion of the diagonal inside the stent. At that point, I did use 1.5 mm balloon and I was able to advance the balloon and balloon angioplasty initially using 1.5 mm balloon subsequently using 200 mm balloon. After that, I did stent that diagonal branch using 2.25 x 12 mm site using 2.0 x 10042 x 23 mm another Sinan drug-eluting stent where the stent was positioned under fluoroscopy guidance and deployed under 14 atmospheres for 20 seconds. The following angiogram showed that the stented segment is looking good, but previous to that proximal to that stent, there was an area seems to be hazy with possible dissection which I decided to stent and at that point I did advance 2.5 x 12 x 18 mm Xience drug- eluting stent where the stent was positioned under fluoroscopy guidance and deployed under 14 atmospheres for 20 seconds. The area of overlap between the 2 stents was dilated using noncompliant balloon which was x 15 mm, which was inflated under 20 atmospheres. The following angiogram showed good angiographic results without perforation and without dissection with good flow in the diagonal. CONCLUSION: 1. Severe triple-vessel coronary artery disease. 2. Patent HELTON to LAD. 3. Patent SVG to OM branch of the left circumflex with intermediate disease involving the left circumflex, distal to the distal anastomosis. 4. Critical disease involving the mid right coronary artery. 5. Occluded stent in the diagonal branch of the LAD, which is a large diagonal branch. 6. Successful stenting of the diagonal branch of the LAD using drug-eluting stent with good angiographic results and without any complication. POSTPROCEDURE MANAGEMENT: 1. Maximize medical treatment. 2. Aggressive cholesterol control. 3. PCI of the right coronary artery, if the patient continues to have chest discomfort. MMODL / IJN: [id number] /
[2018-05-07 13:43] VITALS: BMI 29.4
[2018-05-07] MEDS: HYDROmorphone 1 MG/ML 1 ML SYRINGE IVP PRN ×2 (14:52→19:55)
[2018-05-07 16:24] LABS: Glucose,Whole Blood 131 mg/dL (75-99)
[2018-05-07] MEDS: GABAPENTIN 300 MG CAP PO SCH ×2 (17:55→19:55)
[2018-05-07] MEDS ORDERED: [UNRECOGNIZED DRUG - OTHER] PO SCH (21:00)
[2018-05-07] MEDS ORDERED: METOPROLOL SUCCINATE (ER) 100 MG TAB.ER.24H PO SCH (21:00)
[2018-05-07 21:27] LABS: Glucose,Whole Blood 184 mg/dL (75-99)
[2018-05-07] MEDS: INSULIN ASPART 100 UNIT/ML 1 ML 10 ML VIAL SQ SCH (21:51)
[2018-05-08 04:52] VITALS: TEMP 97.9
[2018-05-08 05:55] LABS: Glucose,Whole Blood 162 mg/dL (75-99)
[2018-05-08 06:24] LABS: Basophils % (A) 1 %; Eosinophils # (A) 0.3 k/uL (0-0.7); Eosinophils % (A) 4 %; HCT 40.9 % (39.0-53.0); HGB 13.3 gm/dL (13.0-17.5); Lymphocytes # (A) 1.3 k/uL (1.0-4.8); Lymphocytes % (A) 18 %; MCH 29.7 pg (25.0-35.0); MCHC 32.4 g/dL (31.0-37.0); MCV 91.4 fL (80.0-100.0); Mean Platelet Volume 7.4; Monocytes # (A) 0.4 k/uL (0-1.0); Monocytes % (A) 5 %; Neutrophils # (A) 5.3 k/uL (1.3-7.7); Neutrophils % (A) 71 %; Platelet Count 131 k/uL (150-450); RBC 4.47 m/uL (4.30-5.90); RDW 14.8 % (11.5-15.5); WBC 7.4 k/uL (3.8-10.6)
[2018-05-08 06:25] LABS: Anion Gap 9 mmol/L; Blood Urea Nitrogen 29 mg/dL (9-20); Carbon Dioxide 25 mmol/L (22-30); Chloride 104 mmol/L (98-107); Glucose 169 mg/dL (74-99); Potassium 4.1 mmol/L (3.5-5.1); Sodium 138 mmol/L (137-145)
[2018-05-08] MEDS: INSULIN ASPART 100 UNIT/ML 1 ML 10 ML VIAL SQ SCH (07:19)
[2018-05-08] MEDS ORDERED: INSULIN ASPART 100 UNIT/ML 1 ML 10 ML VIAL SQ SCH ×2 (07:30)
--- NOTE | 2018-05-08 08:47 | DS ---
DISCHARGE SUMMARY ADMISSION DATE: 05/07/2018 DISCHARGE DATE: 05/08/2018 BRIEF HISTORY: This is a pleasant 63-year-old gentleman who sees Dr. Morton in the office as an outpatient with known history of coronary artery disease and prior coronary artery bypass grafting as well as stenting was admitted to the hospital yesterday and underwent diagnostic heart catheterization and was found to have an occluded diagonal branch of the LAD where he underwent successful stenting of the diagonal branch using Dudley stent as well as Xience stents. The procedure was performed from the right groin which is soft and nontender and without any bruises. The patient is going to be discharged home today on dual anti-platelet therapy and he will follow up with Dr. Morton in the office as an outpatient. MMODL / JESSYN: [id number] /
[2018-05-08] MEDS ORDERED: LORATADINE 10 MG TAB PO SCH (09:00)
[2018-05-08] MEDS ORDERED: CYANOCOBALAMIN 500 MCG TAB PO SCH (09:00)
[2018-05-08] MEDS ORDERED: CHOLECALCIFEROL 1,000 UNIT TAB PO SCH (09:00)
[2018-05-08] MEDS ORDERED: FUROSEMIDE 40 MG TAB PO SCH (09:00)
[2018-05-08] MEDS ORDERED: ASCORBIC ACID 500 MG TAB PO SCH (09:00)
[2018-05-08] MEDS ORDERED: LISINOPRIL 20 MG TAB PO SCH (09:00)
[2018-05-08] MEDS ORDERED: CLOPIDOGREL 75 MG TAB PO SCH (09:00)
[2018-05-08] MEDS ORDERED: INSULIN DETEMIR 100 UNIT/ML 10 ML VIAL SQ SCH (09:00)
[2018-05-08] MEDS ORDERED: ISOSORBIDE MONONITRATE ER 30 MG TAB.ER.24H PO SCH (09:00)
[2018-05-08] MEDS ORDERED: EZETIMIBE 10 MG TAB PO SCH (09:00)
[2018-05-08] MEDS ORDERED: ASPIRIN 81 MG PO SCH (09:00)
[2018-05-08 13:18] VITALS: BP 154/74; PULSE 80; RESP 18
== END 2018-05-08 09:54 | disposition home or self-care (01) ==
LOC: CATHCVL 08:27 → 3SCARD 11:32 → CATHCVL 05-08 09:54
PROVIDERS: ATTEND Internal Medicine Interventional Cardiology
DX: I25.110 Atherosclerotic heart disease of native coronary artery with unstable angina pectoris (principal); T82.855A Stenosis of coronary artery stent, initial encounter; I25.82 Chronic total occlusion of coronary artery; I48.91 Unspecified atrial fibrillation; E11.65 Type 2 diabetes mellitus with hyperglycemia; E78.1 Pure hyperglyceridemia; E78.00 Pure hypercholesterolemia, unspecified; Z95.5 Presence of coronary angioplasty implant and graft; E78.5 Hyperlipidemia, unspecified; I10 Essential (primary) hypertension; Z72.0 Tobacco use; Z79.82 Long term (current) use of aspirin; Z79.899 Other long term (current) drug therapy; Z79.01 Long term (current) use of anticoagulants; Z79.4 Long term (current) use of insulin; Z95.1 Presence of aortocoronary bypass graft
CPT/HCPCS: 93459; 80048; 85025; C9600; C1769 ×4; C1725 ×4; C1887; C1894; C1874 ×2; J2250; J2001; J1170; J0583; Q9967 ×2

== ENCOUNTER → 2018-06-07 | Outpatient (CLI) | payer BC ==
[2018-06-07 10:16] LABS: HCT 45.6 % (39.0-53.0); HGB 14.6 gm/dL (13.0-17.5); MCH 30.7 pg (25.0-35.0); MCHC 31.9 g/dL (31.0-37.0); MCV 96.2 fL (80.0-100.0); Mean Platelet Volume 7.3; Platelet Count 152 k/uL (150-450); RBC 4.74 m/uL (4.30-5.90); RDW 15.7 % (11.5-15.5); WBC 6.6 k/uL (3.8-10.6)
== END | disposition home or self-care (01) ==
LOC: LABPAT 09:50
PROVIDERS: ATTEND Internal Medicine Interventional Cardiology
DX: Z01.812 Encounter for preprocedural laboratory examination (principal); I25.10 Atherosclerotic heart disease of native coronary artery without angina pectoris; I25.5 Ischemic cardiomyopathy
CPT/HCPCS: 36415; 80051; 82565; 84520; 85027

== ENCOUNTER 2018-06-18 12:50 | Day surgery (SDC) | payer BC ==
[2018-06-18] MEDS ORDERED: INSULIN ASPART 100 UNIT/ML 1 ML 10 ML VIAL SQ ONE (14:17)
[2018-06-18 14:36] LABS: Glucose,Whole Blood 220 mg/dL (75-99)
[2018-06-18] MEDS ORDERED: LIDOCAINE 1% INJ 10MG/ML (20 ML MDV) ONE (17:44)
[2018-06-18] MEDS ORDERED: fentaNYL (PF) 50 MCG/ML 2 ML AMP ONE (17:54)
[2018-06-18] MEDS ORDERED: MIDAZOLAM 2 MG/2 ML VIAL IVP ONE (17:58)
[2018-06-18] MEDS ORDERED: fentaNYL (PF) 50 MCG/ML 2 ML AMP IVP ONE (17:59)
[2018-06-18] MEDS ORDERED: LIDOCAINE 1% (PF) 10MG/ML VIAL SQ ONE (18:00)
[2018-06-18] MEDS ORDERED: BIVALIRUDIN 250 MG in SODIUM CHLORIDE 0.9% 35 ML IV ONE (18:03)
[2018-06-18] MEDS ORDERED: BIVALIRUDIN BOLUS 250 MG/50 ML IV ONE (18:03)
[2018-06-18] MEDS ORDERED: NITROGLYCERIN 1000MCG/10ML SYRINGE INTRACORON ONE (18:22)
[2018-06-18] MEDS ORDERED: IOPAMIDOL-370 125ML BTL INJ ONE (18:34)
[2018-06-18] MEDS ORDERED: CLOPIDOGREL 75 MG TAB ONE (18:36)
[2018-06-18] MEDS ORDERED: IOPAMIDOL-370 50ML BTL INJ ONE (18:38)
[2018-06-18] MEDS ORDERED: CLOPIDOGREL 75 MG TAB PO ONE (18:38)
[2018-06-18] MEDS ORDERED: ZOLPIDEM 5 MG TAB PO PRN (18:50)
[2018-06-18] MEDS ORDERED: NITROGLYCERIN SL TABS 0.4 MG TAB SUBLINGUAL PRN (18:50)
[2018-06-18] MEDS ORDERED: RX INFO: IV CONTRAST WAS GIVEN 1 EACH MISC MISCELLANE PRN (18:50)
[2018-06-18] MEDS ORDERED: MAG HYDROX/AL HYDROX/SIMETH 30 ML CUP PO PRN (18:50)
[2018-06-18] MEDS ORDERED: ATROPINE SULFATE 0.1 MG/ML 10ML SYRINGE IV PRN (18:50)
[2018-06-18] MEDS ORDERED: SODIUM CHLORIDE 0.9% 1,000 ML IV SCH (19:00)
[2018-06-18] MEDS ORDERED: HYDROcodone/APAP 5-325MG 1 EACH TAB PO PRN (19:17)
[2018-06-18 19:55] VITALS: BMI 29.4
[2018-06-18 20:52] LABS: Glucose,Whole Blood 198 mg/dL (75-99)
[2018-06-18] MEDS ORDERED: INSULIN DETEMIR 100 UNIT/ML 10 ML VIAL SQ SCH (21:00)
[2018-06-18] MEDS ORDERED: FLUVASTATIN SODIUM 40 MG PO SCH (21:00)
[2018-06-18] MEDS ORDERED: METOPROLOL SUCCINATE (ER) 100 MG TAB.ER.24H PO SCH (21:00)
[2018-06-18] MEDS: GABAPENTIN 300 MG CAP PO SCH (21:45)
--- NOTE | 2018-06-18 22:44 | LTR ---
June 18, 2018 Naman Prasad M.D. RE: Samuel James Dear Dr. Prasad: Mr. Samuel James underwent successful stenting of the right coronary artery with good angiographic results and without any complications. Thank you for allowing us to participate in his care. Please do not hesitate to call if you have any question or concerns. MMODL / IJN: [id number] /
[2018-06-19 06:04] LABS: Basophils # (A) 0.1 k/uL (0-0.2); Basophils % (A) 1 %; Eosinophils # (A) 0.3 k/uL (0-0.7); Eosinophils % (A) 3 %; HCT 42.3 % (39.0-53.0); HGB 13.5 gm/dL (13.0-17.5); Lymphocytes # (A) 1.6 k/uL (1.0-4.8); Lymphocytes % (A) 21 %; MCH 29.8 pg (25.0-35.0); MCHC 31.8 g/dL (31.0-37.0); MCV 93.7 fL (80.0-100.0); Mean Platelet Volume 7.5; Monocytes # (A) 0.4 k/uL (0-1.0); Monocytes % (A) 6 %; Neutrophils # (A) 5.1 k/uL (1.3-7.7); Neutrophils % (A) 68 %; Platelet Count 141 k/uL (150-450); RBC 4.51 m/uL (4.30-5.90); RDW 15.3 % (11.5-15.5); WBC 7.6 k/uL (3.8-10.6)
[2018-06-19 06:14] LABS: Calcium 9.4 mg/dL (8.4-10.2); Potassium 4.4 mmol/L (3.5-5.1)
[2018-06-19 06:23] LABS: Glucose,Whole Blood 153 mg/dL (75-99)
[2018-06-19] MEDS ORDERED: INSULIN ASPART 100 UNIT/ML 1 ML 10 ML VIAL SQ SCH ×3 (07:30→17:30)
[2018-06-19] MEDS: GABAPENTIN 300 MG CAP PO SCH (08:03)
[2018-06-19 08:13] VITALS: BP 129/81; PULSE 80; RESP 18; TEMP 96.4
--- NOTE | 2018-06-19 08:46 | AN ---
ANGIOGRAPHY REPORT DATE OF SERVICE: 06/18/2018 PERFORMING PHYSICIAN: Edi Land MD, Embedder. PROCEDURE PERFORMED: 1. Successful stenting of the mid right coronary artery using a 2.75 x 38 mm Xience drug-eluting stent with an excellent angiographic results and reduction of stenosis from 99% to 0%. 2. Successful stenting of the proximal right coronary artery using 3.0 x 18 mm Xience drug-eluting stent with an excellent angiographic results and reduction of stenosis from 70% to 80% to 0%. 3. Selective right and left coronary angiogram. 4. Left heart catheterization. INDICATION: This is a pleasant 63-year-old gentleman who sees Dr. Morton in the office as an outpatient with a known history of coronary artery disease and prior coronary artery grafting as well as stenting of the diagonal branch of the LAD, who was experiencing unstable angina. He underwent a heart catheterization and was found to have patent SVG to OM and patent HELTON to LAD with severe in-stent restenosis involving the diagonal branch which was stented at that point. The right coronary artery was found to have critical disease. It was unprotected. Because of that, PCI of the RCA was advised. APPROACH: Right common femoral artery. COMPLICATION: None. LEVEL OF SEDATION: Moderate with sedation length of 44 minutes. PROCEDURE DESCRIPTION: After obtaining an informed consent, the patient was brought to the cardiac wood preserving plant laborer. The right common femoral artery was cannulated using micropuncture technique, the micropuncture wire passed easily, then I placed a 6-Nigerian sheath in the right radial artery. After that, I started anticoagulation using Angiomax. After that, I did engage the right coronary artery using a right JR4 guide. I did cross the right coronary artery using a whisper wire. I did PTCA ballooning using 2.5 x 20 mm balloon before I deployed 2 drug-eluting stents. The first stent was 2.75 x 38 and the second was 30 x 18 mm Xience drug-eluting stent. Both the stents were positioned under fluoroscopy guidance and deployed under fluoroscopy guidance as well. The following angiogram showed excellent angiographic results with reduction of stenosis in the mid from 99% to 0 and in the proximal from 70 ti 80% to 0. The procedure at that point was completed without any complication. After that I did selective left coronary angiogram which showed patent stent in the diagonal branch of the LAD, which was performed about 2 months ago. HEMODYNAMICS: The left ventricular end-diastolic pressure was 12 mmHg and no significant gradient was seen across the aortic valve. POSTPROCEDURE MANAGEMENT: Maximize medical treatment and follow up with the patient. ALEXX / HE: [id number] /
[2018-06-19] MEDS ORDERED: ASPIRIN 81 MG PO SCH (09:00)
[2018-06-19] MEDS ORDERED: ISOSORBIDE MONONITRATE ER 30 MG TAB.ER.24H PO SCH (09:00)
[2018-06-19] MEDS ORDERED: LORATADINE 10 MG TAB PO SCH (09:00)
[2018-06-19] MEDS ORDERED: FUROSEMIDE 40 MG TAB PO SCH (09:00)
[2018-06-19] MEDS ORDERED: CYANOCOBALAMIN 500 MCG TAB PO SCH (09:00)
[2018-06-19] MEDS ORDERED: ASCORBIC ACID 500 MG TAB PO SCH (09:00)
[2018-06-19] MEDS ORDERED: CLOPIDOGREL 75 MG TAB PO SCH (09:00)
[2018-06-19] MEDS ORDERED: EZETIMIBE 10 MG TAB PO SCH (09:00)
[2018-06-19] MEDS ORDERED: LISINOPRIL 20 MG TAB PO SCH (09:00)
--- NOTE | 2018-06-19 10:13 | DS ---
DISCHARGE SUMMARY DATE OF ADMISSION: June 18, 2018. DISCHARGE DATE: June 19, 2018 BRIEF HISTORY: The patient is a pleasant 63-year-old gentleman who was admitted to the hospital yesterday and underwent successful stenting of the mid and proximal right coronary artery with good angiographic results and without any complication. On follow up with him today, he is doing good and he is asymptomatic. The patient is going to be discharged on dual anti-platelet therapy as well as Zetia. He is intolerant to statin. He needs to follow up with Dr. Morton in the office in 1 week. MMODL / JESSYN: [id number] /
[2018-06-19] MEDS ORDERED: CHOLECALCIFEROL 1,000 UNIT TAB PO SCH (12:00)
[2018-06-19] MEDS ORDERED: FUROSEMIDE 20 MG TAB PO SCH (16:00)
[2018-06-19] MEDS ORDERED: RIVAROXABAN 15 MG TAB PO SCH (17:30)
== END 2018-06-19 09:19 | disposition home or self-care (01) ==
LOC: CATHCVL 12:50 → 3SCARD 19:02 → CATHCVL 06-19 09:19
PROVIDERS: ATTEND Internal Medicine Interventional Cardiology
DX: I25.110 Atherosclerotic heart disease of native coronary artery with unstable angina pectoris (principal); I10 Essential (primary) hypertension; E78.5 Hyperlipidemia, unspecified; I47.2 Ventricular tachycardia; E78.00 Pure hypercholesterolemia, unspecified; I48.91 Unspecified atrial fibrillation; E11.9 Type 2 diabetes mellitus without complications; I25.5 Ischemic cardiomyopathy; Z82.49 Family history of ischemic heart disease and other diseases of the circulatory system; Z95.5 Presence of coronary angioplasty implant and graft; Z95.1 Presence of aortocoronary bypass graft; Z72.0 Tobacco use; Z79.01 Long term (current) use of anticoagulants; Z79.899 Other long term (current) drug therapy; Z79.02 Long term (current) use of antithrombotics/antiplatelets; Z79.4 Long term (current) use of insulin
CPT/HCPCS: 80048; 85025; C9600; C1769 ×5; C1887; C1725; C1894; C1760; C1874; J2250; J3010; J0583; J2001; Q9967 ×2; 93459

== ENCOUNTER 2018-09-01 21:13 | Emergency (ER) | payer BC ==
[2018-09-01 22:09] VITALS: RESP 18
--- NOTE | 2018-09-01 22:39 | ED ---
Chest Pain HPI - General Chief Complaint: Chest Pain Stated Complaint: Chest pain Time Seen by Provider: 09/01/18 22:10 Source: patient Mode of arrival: ambulatory Limitations: no limitations - History of Present Illness Initial Comments: This patient is a 63-year-old man who presents to be evaluated for chest pain. The patient states that the symptoms started up approximately a week ago. He describes substernal heaviness, that seems to come on when he walks into work. He states that he takes a nitroglycerin and the symptoms resolved. His usually moderate intensity. He is not having any chest pain now. He states that one that comes on he also has some associated shortness of breath. He states his breathing feels normal now. No other anginal type symptoms. MD Complaint: chest pain Onset/Timin -: week(s) Onset: during exertion Pain Location: substernal Pain Radiation: none Severity: moderate Quality: heaviness Consistency: now resolved Improves With: nitroglycerin Worsens With: exertion Anginal Symptoms: dyspnea Treatments Prior to Arrival: nitroglycerin - Related Data Home Medications Medication Instructions Recorded Confirmed Ezetimibe [Zetia] 10 mg PO DAILY 05/03/14 09/01/18 Cholecalciferol [Vitamin D3] 2,000 units PO DAILY 06/17/14 09/01/18 Cyanocobalamin [Vitamin B-12] 500 mcg PO DAILY 12/08/14 09/01/18 Fexofenadine HCl [Shila Allergy] 180 mg PO DAILY 05/21/16 09/01/18 Lisinopril [Zestril] 40 mg PO DAILY 05/21/16 09/01/18 Metoprolol Succinate [Toprol XL] 200 mg PO HS 05/21/16 09/01/18 Ascorbic Acid [Vitamin C] 500 mg PO DAILY 10/05/17 09/01/18 Insulin Glargine,Hum.rec.anlog 65 units SQ HS 01/14/18 09/01/18 [[place]bert Solostar] Fluvastatin Sodium [Lescol] 40 mg PO HS 05/05/18 09/01/18 Furosemide [Lasix] 40 mg PO DAILY@0600 05/05/18 09/01/18 Gabapentin 600 mg PO TID 05/05/18 09/01/18 Insulin Aspart (Niacinamide) 12 unit SQ AC-BRKFST 05/05/18 09/01/18 [Fiasp 100 Unit/ml Flextouch] Insulin Aspart (Niacinamide) 12 unit SQ AC-LUNCH 05/05/18 09/01/18 [Fiasp 100 Unit/ml Flextouch] Insulin Aspart (Niacinamide) 16 unit SQ AC-SUPPER 05/05/18 09/01/18 [Fiasp 100 Unit/ml Flextouch] Isosorbide Mononitrate [Isosorbide 30 mg PO DAILY 05/05/18 09/01/18 Mononitrate ER] Furosemide [Lasix] 20 mg PO DAILY@1400 06/18/18 09/01/18 Rivaroxaban [Xarelto] 15 mg PO AC-SUPPER 09/01/18 09/01/18 Previous Rx's Medication Instructions Recorded Aspirin 81 mg PO DAILY #30 chew 01/18/18 Clopidogrel [Plavix] 75 mg PO DAILY #30 tab 01/18/18 Allergies Allergy/AdvReac Type Severity Reaction Status Date / Time wheat Allergy Anaphylaxis Verified 09/01/18 22:18 atorvastatin [From Lipitor] AdvReac "could not Verified 09/01/18 22:18 move-to much pain" Review of Systems ROS Statement: Those systems with pertinent positive or pertinent negative responses have been documented in the HPI. ROS Other: All systems not noted in ROS Statement are negative. Constitutional: Denies: fever, chills Respiratory: Reports: as per HPI. Denies: cough, dyspnea, wheezes, hemoptysis Cardiovascular: Reports: chest pain, dyspnea on exertion. Denies: palpitations , orthopnea, edema, syncope Gastrointestinal: Denies: abdominal pain, nausea, vomiting, diarrhea, melena, hematochezia Genitourinary: Denies: dysuria, hematuria Musculoskeletal: Denies: back pain Skin: Denies: rash Neurological: Denies: headache, weakness EKG Findings - EKG Comments: EKG Findings:: Underlying rhythm appears to be atrial fibrillation rate approximately 88 bpm - EKG Results: EKG: normal axis - Blocks, [place], Hypertrophy, ST Abn: Repolarization changes or abnormalities: nonspecific abnormality, ST segment, and/or T wave - RI, Pacemaker, Normal: Myocardial infarction: inferior RI (old age indeterminate) Past Medical History Past Medical History: Atrial Fibrillation, Coronary Artery Disease (CAD), Chest Pain / Angina, Heart Failure, Diabetes Mellitus, Hyperlipidemia, Hypertension, Myocardial Infarction (RI), Osteoarthritis (OA) Additional Past Medical History / Comment(s): tinnitis R ear, diverticulosis, "racing heart", varicose veins, Last Myocardial Infarction Date:: 1993 History of Any Multi-Drug Resistant Organisms: None Reported Past Surgical History: AICD, Appendectomy, Cardiac Ablation, Cholecystectomy, Coronary Bypass/CABG, Ear Surgery, Heart Catheterization, Heart Catheterization With Stent, Pacemaker Additional Past Surgical History / Comment(s): 2008 CABG -4 vessel, cardioversions x 3, cardiac ablation x 2 , R ear surgery, 2 cardiac stents, 2 stents on 05/07/18 Past Anesthesia/Blood Transfusion Reactions: No Reported Reaction Date of Last Stent Placement:: 05/07/18 Type of Cardiac Device: Biventricular Pacemaker, AICD Device Placement Date:: 2007 Past Psychological History: No Psychological Hx Reported Smoking Status: Never smoker Past Alcohol Use History: Occasional Past Drug Use History: None Reported - Past Family History Brother(s) Family Medical History: Cancer Additional Family Medical History / Comment(s): leukemia Father Additional Family Medical History / Comment(s): Father has a pacer and is 84 yrs old. Mother Family Medical History: Cancer Additional Family Medical History / Comment(s): breast/brain General Exam Limitations: no limitations General appearance: alert, in no apparent distress Head exam: Present: atraumatic, normocephalic Eye exam: Present: normal appearance. Absent: scleral icterus, conjunctival injection ENT exam: Present: normal oropharynx Respiratory exam: Present: normal lung sounds bilaterally. Absent: respiratory distress, wheezes, rales, rhonchi, stridor, chest wall tenderness Cardiovascular Exam: Present: regular rate, irregular rhythm, normal heart sounds. Absent: systolic murmur, diastolic murmur, rubs, gallop GI/Abdominal exam: Present: soft. Absent: distended, tenderness, guarding, rebound, rigid, mass Extremities exam: Present: normal inspection, normal capillary refill. Absent: pedal edema, calf tenderness Back exam: Present: normal inspection. Absent: CVA tenderness (R), CVA tenderness (L) Neurological exam: Present: alert Skin exam: Present: warm, dry, intact, normal color. Absent: rash Course Vital Signs 09/01/18 09/01/1819 21:16 22:05 23:30 Temperature 97.7 F 98.0 F Pulse Rate 92 86 92 Respiratory 16 18 18 Rate Blood Pressure 181/91 161/91 154/81 O2 Sat by Pulse 95 99 98 Oximetry Chest Pain MDM - MDM This patient is a 63-year-old man presenting with what sounds like change in his anginal pain. He is symptom-free now however. On reevaluation the patient does request to go. I explained rationale for keeping him in the hospital to have cardiology see him, with patient states he has an appointment scheduled Saturday and he feels confident in going to that. We discussed that he may return to the hospital at any time. Emphasized that he must do so should the symptoms recur or any new symptoms develop. He does understand his decision. Disposition Clinical Impression: Angina pectoris Disposition: Left Against Medical Advice Condition: Undetermined Instructions (If sedation given, give patient instructions): Angina (DC) Is patient prescribed a controlled substance at d/c from ED?: No Referrals: Naman Prasad MD [Primary Care Provider] - 1-2 days Luis Morton MD [STAFF PHYSICIAN] - 1-2 days
[2018-09-01 22:48] LABS: Basophils # (A) 0.1 k/uL (0-0.2); Basophils % (A) 1 %; Eosinophils # (A) 0.4 k/uL (0-0.7); Eosinophils % (A) 5 %; HGB 14.1 gm/dL (13.0-17.5); Lymphocytes # (A) 2.1 k/uL (1.0-4.8); Lymphocytes % (A) 26 %; MCH 32.6 pg (25.0-35.0); MCHC 34.5 g/dL (31.0-37.0); MCV 94.6 fL (80.0-100.0); Mean Platelet Volume 7.8; Monocytes # (A) 0.6 k/uL (0-1.0); Monocytes % (A) 7 %; Neutrophils # (A) 4.9 k/uL (1.3-7.7); Neutrophils % (A) 59 %; Platelet Count 134 k/uL (150-450); RBC 4.33 m/uL (4.30-5.90); RDW 14.3 % (11.5-15.5); WBC 8.3 k/uL (3.8-10.6)
[2018-09-01 22:58] LABS: Albumin 4.4 g/dL (3.5-5.0); Calcium 9.1 mg/dL (8.4-10.2); Magnesium 1.9 mg/dL (1.6-2.3); Potassium 4.5 mmol/L (3.5-5.1); Total Bilirubin 0.6 mg/dL (0.2-1.3); Total Protein 7.2 g/dL (6.3-8.2)
[2018-09-01 23:00] LABS: D-Dimer 0.31 mg/L FEU (<0.60); INR 0.9 (<1.2); Partial Thromboplastin Time 27.7 sec (22.0-30.0); Prothrombin Time 10.2 sec (9.0-12.0)
[2018-09-01 23:42] VITALS: BP 154/81; PULSE 92; TEMP 98
--- NOTE | 2018-09-01 23:43 | XR ---
EXAM: XR Chest, 2 Views CLINICAL HISTORY: ITS.REASON XR Reason: Chest Pain TECHNIQUE: Frontal and lateral views of the chest. COMPARISON: 01/14/18. FINDINGS: Lungs: Bilateral perihilar and infrahilar opacities. Pleural space: Unremarkable. No pneumothorax. Heart: Stable enlarged cardiac silhouette. Mediastinum: Stable. Bones/joints: No acute fracture. Other findings: Postsurgical changes again noted in the chest. IMPRESSION: Bilateral perihilar and infrahilar opacities. Correlate clinically for inflammatory/infectious process.
== END 2018-09-01 23:42 | disposition left against medical advice (07) ==
LOC: EC 21:13
DX: I25.119 Atherosclerotic heart disease of native coronary artery with unspecified angina pectoris (principal); I48.91 Unspecified atrial fibrillation; E78.5 Hyperlipidemia, unspecified; I11.0 Hypertensive heart disease with heart failure; I50.9 Heart failure, unspecified; E11.9 Type 2 diabetes mellitus without complications; I25.2 Old myocardial infarction; Z53.20 Procedure and treatment not carried out because of patient's decision for unspecified reasons; Z88.8 Allergy status to other drugs, medicaments and biological substances; Z91.018 Allergy to other foods; Z79.01 Long term (current) use of anticoagulants; Z79.4 Long term (current) use of insulin; Z79.899 Other long term (current) drug therapy; Z95.0 Presence of cardiac pacemaker; Z95.1 Presence of aortocoronary bypass graft; Z95.5 Presence of coronary angioplasty implant and graft; Z98.890 Other specified postprocedural states
CPT/HCPCS: 36415; 71046; 80053; 82150; 83690; 83735; 84484; 85025; 85379; 85610; 85730; 93005; 99285

== ENCOUNTER → 2018-09-16 | Outpatient (CLI) | payer BC ==
[2018-09-17 02:08] LABS: Cholesterol 221 mg/dL (0-200)
== END | disposition home or self-care (01) ==
LOC: LABWHC1 16:44
PROVIDERS: ATTEND Nurse Practitioner Adult Health
DX: E78.5 Hyperlipidemia, unspecified (principal)
CPT/HCPCS: 36415; 80061; 83721

== ENCOUNTER → 2018-10-04 | Outpatient (CLI) | payer BC ==
[2018-10-04 10:18] LABS: HCT 41.3 % (39.0-53.0); HGB 13.9 gm/dL (13.0-17.5); MCH 30.8 pg (25.0-35.0); MCHC 33.6 g/dL (31.0-37.0); MCV 91.7 fL (80.0-100.0); Mean Platelet Volume 8.3; Platelet Count 144 k/uL (150-450); RDW 15.3 % (11.5-15.5); WBC 7.4 k/uL (3.8-10.6)
[2018-10-04 10:28] LABS: Potassium 4.9 mmol/L (3.5-5.1)
== END ==
LOC: LABPAT 09:43
PROVIDERS: ATTEND Internal Medicine Interventional Cardiology
DX: Z01.812 Encounter for preprocedural laboratory examination (principal); I25.10 Atherosclerotic heart disease of native coronary artery without angina pectoris; I10 Essential (primary) hypertension; R94.39 Abnormal result of other cardiovascular function study
CPT/HCPCS: 36415; 80051; 82565; 84520; 85027

== ENCOUNTER 2018-10-10 06:49 | Day surgery (SDC) | payer BC ==
[2018-10-10 07:22] LABS: Glucose,Whole Blood 252 mg/dL (75-99)
[2018-10-10] MEDS ORDERED: INSULIN ASPART (NovoLOG) 100 UNIT/ML VIAL SQ ONE (07:29)
[2018-10-10] MEDS ORDERED: LIDOCAINE 1% INJ 10MG/ML (20 ML MDV) ONE (07:49)
[2018-10-10] MEDS ORDERED: LIDOCAINE 1% INJ 10MG/ML (20 ML MDV) SQ ONE ×2 (08:19→08:25)
[2018-10-10] MEDS ORDERED: MIDAZOLAM 2 MG/2 ML VIAL IV ONE (08:19)
[2018-10-10] MEDS ORDERED: BIVALIRUDIN BOLUS 250 MG/50 ML IV ONE (08:50)
[2018-10-10] MEDS ORDERED: BIVALIRUDIN 250 MG in SODIUM CHLORIDE 0.9% 50 ML IV ONE ×2 (08:51→09:35)
[2018-10-10] MEDS ORDERED: CLOPIDOGREL 75 MG TAB ONE (08:53)
[2018-10-10] MEDS ORDERED: fentaNYL (PF) 50 MCG/ML 2 ML AMP ONE (08:55)
[2018-10-10] MEDS ORDERED: CLOPIDOGREL 75 MG TAB PO ONE (08:57)
[2018-10-10] MEDS: fentaNYL (PF) 50 MCG/ML 2 ML AMP IV ONE ×2 (08:57→09:43)
[2018-10-10] MEDS ORDERED: IOPAMIDOL-370 125ML BTL INJ ONE (09:03)
[2018-10-10] MEDS: NITROGLYCERIN 1000MCG/10ML SYRINGE INTRACORON ONE ×4 (09:05→09:39)
[2018-10-10] MEDS ORDERED: niCARdipine Syringe (1,000 mcg/10 mL) INTRACORON ONE (09:10)
[2018-10-10] MEDS ORDERED: IOPAMIDOL-370 100ML BTL INJ ONE (09:39)
[2018-10-10] MEDS ORDERED: RX INFO: IV CONTRAST WAS GIVEN 1 EACH MISC MISCELLANE PRN (10:12)
[2018-10-10] MEDS ORDERED: MAG HYDROX/AL HYDROX/SIMETH 30 ML CUP PO PRN (10:12)
[2018-10-10] MEDS ORDERED: ATROPINE SULFATE 0.1 MG/ML 10ML SYRINGE IV PRN (10:12)
[2018-10-10] MEDS ORDERED: ZOLPIDEM 5 MG TAB PO PRN (10:12)
[2018-10-10] MEDS ORDERED: NITROGLYCERIN SL TABS 0.4 MG TAB SUBLINGUAL PRN (10:12)
[2018-10-10] MEDS ORDERED: SODIUM CHLORIDE 0.9% 1,000 ML IV SCH (10:15)
--- NOTE | 2018-10-10 10:53 | LTR ---
DATE OF SERVICE: October 10, 2018 RE: Samuel James Dear Dr. Prasad; Mr. Samuel James underwent today successful stenting of the diagonal branch of the LAD as well as left circumflex coronary artery. I want to thank you for allowing me to participate in his care and please do not hesitate to call if you have any question or concern. Sincerely, MD ALEXX Roche / HE: [id number] /
--- NOTE | 2018-10-10 11:08 | CC ---
CARDIAC CATHETERIZATION REPORT CARDIAC CATHETERIZATION AND PERCUTANEOUS CORONARY INTERVENTION DATE OF SERVICE: October 10, 2018 PERFORMING PHYSICIAN: Edi Land MD, metal washing machine operator. PROCEDURE PERFORMED: 1. Selective left and right coronary angiogram. 2. Left internal mammary artery to LAD angiogram. 3. Radial artery bypass to OM angiogram. 4. Left heart catheterization. 5. Successful stenting of the proximal left circumflex using 2.0 x 15 and 2.0 x 8 mm [place] drug-eluting stent with an excellent angiographic result and reduction of stenosis from 90% to 0%. 6. Successful stenting of the first diagonal branch of the LAD using 2.0 x 12 mm Sinan drug-eluting stent with an excellent angiographic result and reduction of stenosis from 100% to 0%. INDICATION: This is a very pleasant 63-year-old gentleman with history of coronary artery disease and known coronary artery bypass grafting as well as coronary artery stenting. The last heart catheterization revealed severe triple-vessel coronary artery disease with patent HELTON to LAD and patent radial graft to OM. At that point, he underwent successful stenting of the RCA as well as successful stenting of the first diagonal branch of the LAD. Recently was seen and evaluated by Dr. Morton and he was experiencing symptoms of chest discomfort concerning for angina. Because of that, he was scheduled to undergo a heart catheterization today. APPROACH: Right common femoral artery. COMPLICATION: None. LEVEL OF SEDATION: Moderate with sedation length of 77 minutes. PROCEDURE DESCRIPTION: After obtaining an informed consent, the patient was brought to the cardiac cytology laboratory manager. The right common femoral artery was cannulated using micropuncture technique, the micropuncture wire passed easily then I placed a 6-Belarusian sheath in the right common femoral artery. The selective left and right coronary angiogram performed using JL4 and JR4 catheters. Left heart catheterization was performed using 6-Bel[place]ian pigtail catheter. I did after that intervene on the left circumflex as well as diagonal branch of the LAD. Please see a separate paragraph for that. SELECTIVE CORONARY ANGIOGRAM: 1. The left main appeared to have mild disease only. It bifurcates into left circumflex and left anterior descending artery. 2. The left circumflex is a large caliber vessel. It is a nondominant vessel. The proximal circumflex has a critical lesion appeared to be in the range of 90%. The left circumflex after that continues as a small to medium caliber vessel. 3. The LAD: The proximal LAD appeared to be stented with mild in-stent restenosis. The LAD in the proximal portion gives rise into a large diagonal branch which is stented with in-stent total occlusion. 4. The right coronary artery is a large caliber vessel. The RCA is stented in the midportion and the stent is patent. The RCA distally bifurcates into PDA and PLV branches both appear to be angiographically normal. HEMODYNAMICS: The left ventricular end-diastolic pressure appeared to be in the range of 8 to 10 mmHg without significant gradient across the aortic valve. CORONARY BYPASSES ANGIOGRAM: 1. The HELTON to LAD is patent and functioning good. 2. The radial bypass to distal left circumflex is patent. The left circumflex distal to the anastomosis appeared to have a lesion in the range of 60%. PCI OF THE LEFT CIRCUMFLEX AND DIAGONAL: Anticoagulation was initiated using Angiomax. Subsequently I did engage the left main using XB35 guide. I did wire the left circumflex using a run-through wire. I did balloon angioplasty initially using 2.0 x 12 mm balloon and I attempted advancing 2.0 x 15 mm [place], but the stent will not make the turn to the left circumflex because of the artery is calcified and tortuous at that segment. At that point, I did balloon angioplasty again using this time 2.0 x 12 mm NC balloon. After that I was able to advance 2.0 x 15 mm [place] drug-eluting stent where the stent was positioned under fluoroscopy guidance and deployed under under 14 atmospheres for 20 seconds. The following angiogram showed an area proximal to the stent appeared to be hazy with possible dissection and I decided to cover that with a stent. I did deploy another 2.0 x 8 mm Sinan just proximal to the previous stent where the second stent was positioned under fluoroscopy guidance and deployed under its nominal pressure. The following angiogram showed good angiographic results. After that, I redirected my wire into the diagonal. I was able to cross the chronic total occlusion of the diagonal branch. After that I did balloon angioplasty using 2.0 x 12 mm balloon. I did deploy in the diagonal 2.0 x 12 mm [place] drug-eluting stent where the stent was positioned under fluoroscopy guidance and deployed under its nominal pressure. The following angiogram showed good angiographic results. The outflow of the diagonal appeared to be small. CONCLUSION: 1. Severe triple-vessel coronary artery disease. 2. Patent HELTON to LAD. The HELTON is functioning normally. 3. Patent SVG to obtuse marginal branch of the left circumflex. 4. Patent radial artery to obtuse marginal branch of the left circumflex. 5. The obtuse marginal branch distal to the distal anastomosis appeared to have a lesion in the range of 60%. 6. Patent stent in the right coronary artery. 7. Successful stenting of the proximal left circumflex as described above. 8. Successful stenting of the first diagonal branch of the LAD as described above as well. POSTPROCEDURE MANAGEMENT: 1. Maximize medical treatment. 2. Aggressive cholesterol control. 3. Follow up with the patient. MMODL / IJN: [id number] /
[2018-10-10] MEDS ORDERED: INSULIN ASPART (NovoLOG) 100 UNIT/ML VIAL SQ SCH ×2 (12:30→17:30)
[2018-10-10] MEDS ORDERED: FUROSEMIDE 20 MG TAB PO SCH (14:00)
[2018-10-10 17:02] LABS: Glucose,Whole Blood 161 mg/dL (75-99)
[2018-10-10] MEDS: GABAPENTIN 300 MG CAP PO SCH ×2 (17:35→21:28)
[2018-10-10 18:11] LABS: Glucose,Whole Blood 181 mg/dL (75-99)
[2018-10-10 18:27] VITALS: RESP 18
[2018-10-10 20:49] LABS: Glucose,Whole Blood 175 mg/dL (75-99)
[2018-10-10] MEDS ORDERED: METOPROLOL SUCCINATE (ER) 100 MG TAB.ER.24H PO SCH (21:00)
[2018-10-10] MEDS ORDERED: INSULIN DETEMIR (LEVEMIR) 100 UNIT/ML SYR SQ SCH (21:00)
[2018-10-10] MEDS ORDERED: ATORVASTATIN 10 MG TAB PO SCH (21:00)
[2018-10-11] MEDS ORDERED: FUROSEMIDE 40 MG TAB PO SCH (06:00)
[2018-10-11 06:07] LABS: Glucose,Whole Blood 143 mg/dL (75-99)
[2018-10-11 07:15] LABS: Basophils # (A) 0.1 k/uL (0-0.2); Basophils % (A) 1 %; Eosinophils # (A) 0.3 k/uL (0-0.7); Eosinophils % (A) 4 %; HCT 41.4 % (39.0-53.0); HGB 13.4 gm/dL (13.0-17.5); Lymphocytes # (A) 1.3 k/uL (1.0-4.8); Lymphocytes % (A) 16 %; MCHC 32.4 g/dL (31.0-37.0); MCV 95.8 fL (80.0-100.0); Mean Platelet Volume 7.6; Monocytes # (A) 0.5 k/uL (0-1.0); Monocytes % (A) 6 %; Neutrophils # (A) 5.8 k/uL (1.3-7.7); Neutrophils % (A) 72 %; Platelet Count 127 k/uL (150-450); RBC 4.32 m/uL (4.30-5.90); RDW 14.9 % (11.5-15.5); WBC 8.1 k/uL (3.8-10.6)
[2018-10-11 07:24] LABS: Potassium 4.9 mmol/L (3.5-5.1)
[2018-10-11] MEDS ORDERED: INSULIN ASPART (NovoLOG) 100 UNIT/ML VIAL SQ SCH (07:30)
[2018-10-11] MEDS: GABAPENTIN 300 MG CAP PO SCH (08:01)
[2018-10-11] MEDS ORDERED: ISOSORBIDE MONONITRATE ER 30 MG TAB.ER.24H PO SCH (09:00)
[2018-10-11] MEDS ORDERED: ASCORBIC ACID 500 MG TAB PO SCH (09:00)
[2018-10-11] MEDS ORDERED: ASPIRIN 81 MG PO SCH (09:00)
[2018-10-11] MEDS ORDERED: EZETIMIBE 10 MG TAB PO SCH (09:00)
[2018-10-11] MEDS ORDERED: LISINOPRIL 20 MG TAB PO SCH (09:00)
[2018-10-11] MEDS ORDERED: LORATADINE 10 MG TAB PO SCH (09:00)
[2018-10-11] MEDS ORDERED: CLOPIDOGREL 75 MG TAB PO SCH (09:00)
--- NOTE | 2018-10-11 10:23 | DS ---
DISCHARGE SUMMARY DATE OF ADMISSION: 10/10/2018 DATE OF DISCHARGE: 10/11/2018 BRIEF HISTORY: This is a 63-year-old gentleman who sees Dr. Morton in the office as an outpatient. Yesterday he underwent stenting of the left circumflex as well as stenting of the diagonal branch of the LAD. On followup with him today, he is feeling good and he is asymptomatic. The right groin is slightly tender. No hematoma. I am going to obtain an ultrasound just to rule out pseudoaneurysm, and if the ultrasound is normal, the patient can be discharged home. MMODL / IJN: [id number] /
[2018-10-11 11:48] LABS: Glucose,Whole Blood 154 mg/dL (75-99)
[2018-10-11] MEDS ORDERED: CHOLECALCIFEROL 1,000 UNIT TAB PO SCH (12:00)
[2018-10-11] MEDS ORDERED: CYANOCOBALAMIN 500 MCG TAB PO SCH (12:00)
--- NOTE | 2018-10-11 12:55 | US ---
EXAMINATION TYPE: US lower ext pseudo artery RT DATE OF EXAM: 10/11/2018 COMPARISON: NONE CLINICAL HISTORY: PSEUDOANEURYSM. Heart cath yesterday, patient had bulging palpable at medial right groin last night, painful, better this am but tender touch. EXAM PERFORMED: Grayscale and color Doppler duplex imaging performed of the groin, post cardiac jes[address] ter to assess for pseudoaneurysm. SIDE PERFORMED: right Color and Waveform Doppler performed to assess for the presence of pseudoaneurysm; Is there ultrasound evidence of a pseudoaneurysm: no Is there evidence of AV shunting: no Is there a fluid collection present: no at medial groin palpable, there appears to be a superficial, partially thrombosed varicose vein. IMPRESSION: 1. NO EVIDENCE OF A PSEUDOANEURYSM AT THIS TIME. 2. EVIDENCE OF SUPERFICIAL PHLEBITIS INVOLVING ONE OF THE PATIENT'S SUPERFICIAL VARICOSE VEINS.
[2018-10-11 12:57] VITALS: BP 121/57; PULSE 81; TEMP 97.2
[2018-10-11 13:04] VITALS: BMI 30.3
== END 2018-10-11 13:43 | disposition home or self-care (01) ==
LOC: CATHCVL 06:49 → 3SCARD 09:42 → CATHCVL 10-11 13:43
PROVIDERS: ATTEND Internal Medicine Interventional Cardiology
DX: I25.10 Atherosclerotic heart disease of native coronary artery without angina pectoris (principal); I25.82 Chronic total occlusion of coronary artery; I77.1 Stricture of artery; R94.39 Abnormal result of other cardiovascular function study; I48.91 Unspecified atrial fibrillation; I10 Essential (primary) hypertension; E11.9 Type 2 diabetes mellitus without complications; I47.2 Ventricular tachycardia; I47.1 Supraventricular tachycardia; I25.5 Ischemic cardiomyopathy; E78.5 Hyperlipidemia, unspecified; F17.210 Nicotine dependence, cigarettes, uncomplicated; Z95.1 Presence of aortocoronary bypass graft; Z79.899 Other long term (current) drug therapy; Z95.5 Presence of coronary angioplasty implant and graft; Z82.49 Family history of ischemic heart disease and other diseases of the circulatory system; Z95.810 Presence of automatic (implantable) cardiac defibrillator; Z79.4 Long term (current) use of insulin; Z79.02 Long term (current) use of antithrombotics/antiplatelets; Z79.01 Long term (current) use of anticoagulants; Z88.8 Allergy status to other drugs, medicaments and biological substances
CPT/HCPCS: 93459; 80048; 85025; 93976; 93926; C9600; C1769 ×4; C1725 ×3; C1887; C1894; C1760; C1874; J2250; J2001; J3010; J0583; Q9967 ×2

== ENCOUNTER → 2018-11-15 | Outpatient (CLI) | payer BC ==
[2018-11-15 10:37] LABS: HCT 41.5 % (39.0-53.0); HGB 13.5 gm/dL (13.0-17.5); MCH 31.2 pg (25.0-35.0); MCHC 32.4 g/dL (31.0-37.0); MCV 96.2 fL (80.0-100.0); Mean Platelet Volume 8.1; Platelet Count 127 k/uL (150-450); RBC 4.32 m/uL (4.30-5.90); RDW 15.5 % (11.5-15.5); WBC 6.9 k/uL (3.8-10.6)
[2018-11-15 17:53] LABS: Albumin 4.6 g/dL (3.80-4.90); Albumin/Globulin Ratio 2.56 (1.60-3.17); Anion Gap 7.5 mmol/L (4.00-12.00); Calcium 9.1 mg/dL (8.7-10.3); Carbon Dioxide 22.5 mmol/L (21.6-31.8); Globulin 1.8 g/dL (1.6-3.3); Potassium 5.4 mmol/L (3.5-5.5); Total Bilirubin 0.5 mg/dL (0.2-1.2); Total Protein 6.4 g/dL (6.2-8.2); VLDL Calculation 47.4 mg/dL (5.00-40.00)
== END ==
LOC: LABWHC1 08:51
PROVIDERS: ATTEND Physician Assistant
DX: Z00.00 Encounter for general adult medical examination without abnormal findings (principal); Z13.220 Encounter for screening for lipoid disorders
CPT/HCPCS: 36415; 80053; 80061; 83036; 84439; 84443; 85027

== ENCOUNTER → 2019-01-24 | Outpatient (CLI) | payer BC ==
[2019-01-24 16:56] LABS: Cholesterol 123 mg/dL (0-200)
== END | disposition home or self-care (01) ==
LOC: LABWHC1 09:58
PROVIDERS: ATTEND Internal Medicine Clinical Cardiac Electrophysiology
DX: E78.2 Mixed hyperlipidemia (principal)
CPT/HCPCS: 36415; 80061

== ENCOUNTER → 2019-02-21 | Outpatient (CLI) | payer BC ==
[2019-02-21 18:10] LABS: African American GFR (CKD) 32.5 (60.0-200.0); Anion Gap 11.9 mmol/L (4.00-12.00); BUN/Creat Ratio 40.42 Ratio (12.00-20.00); Calcium 9.1 mg/dL (8.7-10.3); Carbon Dioxide 21.1 mmol/L (21.6-31.8); Non-African American GFR(CKD) 28.1 (60.0-200.0)
[2019-02-21 19:23] LABS: Urine Creatinine 45.9 mg/dL
[2019-02-21 19:26] LABS: Hemoglobin A1C 8.6 % (4.0-6.0)
[2019-02-23 10:18] LABS: Potassium 6.1 mmol/L (3.5-5.5)
== END | disposition home or self-care (01) ==
LOC: LABWHC1 11:52
PROVIDERS: ATTEND Internal Medicine
DX: E11.65 Type 2 diabetes mellitus with hyperglycemia (principal)
CPT/HCPCS: 36415; 80048; 82043; 82570; 83036

== ENCOUNTER → 2019-04-04 | Outpatient (CLI) | payer BC ==
[2019-04-04 16:33] LABS: African American GFR (CKD) 67.8 (60.0-200.0); Anion Gap 9.2 mmol/L (4.00-12.00); BUN/Creat Ratio 23.85 Ratio (12.00-20.00); Carbon Dioxide 26.8 mmol/L (21.6-31.8); Non-African American GFR(CKD) 58.5 (60.0-200.0); Potassium 5.2 mmol/L (3.5-5.5)
== END | disposition home or self-care (01) ==
LOC: LABWHC1 09:23
PROVIDERS: ATTEND Internal Medicine
DX: E87.5 Hyperkalemia (principal)
CPT/HCPCS: 36415; 80048

== ENCOUNTER → 2019-05-01 | Outpatient (CLI) | payer BC ==
--- NOTE | 2019-05-01 12:43 | US ---
EXAMINATION TYPE: US venous doppler duplex LE LT DATE OF EXAM: 05/01/2019 12:33 PM COMPARISON: NONE CLINICAL HISTORY: R60.0 edema. SIDE PERFORMED: Left TECHNIQUE: The lower extremity deep venous system is examined utilizing real time linear array sonog don with graded compression, doppler sonography and color-flow sonography. VESSELS IMAGED: External Iliac Vein (EIV) Common Femoral Vein Deep Femoral Vein Greater Saphenous Vein * Femoral Vein Popliteal Vein Small Saphenous Vein * Proximal Calf Veins (* superficial vessels) Grayscale, color doppler, spectral doppler imaging performed of the deep veins of the left lower extr emity. There is normal flow, compressibility, vascular waveforms. Left Leg: Negative for DVT IMPRESSION: No sonographic evidence of deep venous thrombosis within the left lower extremity.
== END | disposition home or self-care (01) ==
LOC: RADUSWWP 12:12
PROVIDERS: ATTEND Physician Assistant
DX: R60.0 Localized edema (principal)

== ENCOUNTER → 2019-08-01 | Outpatient (CLI) | payer BC ==
[2019-08-01 18:35] LABS: Hemoglobin A1C 7.9 % (4.0-6.0)
[2019-08-01 23:15] LABS: Albumin 4.9 g/dL (3.80-4.90); Albumin/Globulin Ratio 2.88 (1.60-3.17); Anion Gap 7.7 mmol/L (4.00-12.00); BUN/Creat Ratio 24.67 Ratio (12.00-20.00); Calcium 9.2 mg/dL (8.7-10.3); Carbon Dioxide 25.3 mmol/L (21.6-31.8); Chol/HDL Ratio 2.97; Globulin 1.7 g/dL (1.6-3.3); LDL Cholesterol,Calculated 15.2 mg/dL (0.0-131.0); Non-African American GFR(CKD) 49.2 (60.0-200.0); Potassium 5.2 mmol/L (3.5-5.5); Total Bilirubin 0.6 mg/dL (0.3-1.2); Total Protein 6.6 g/dL (6.2-8.2); VLDL Calculation 57.8 mg/dL (5.00-40.00)
[2019-08-01 23:38] LABS: Urine Creatinine 94.6 mg/dL
== END | disposition home or self-care (01) ==
LOC: LABWHC1 10:29
PROVIDERS: ATTEND Internal Medicine
DX: E11.65 Type 2 diabetes mellitus with hyperglycemia (principal)
CPT/HCPCS: 36415; 80053; 80061; 82043; 82570; 83036

== ENCOUNTER 2020-01-05 09:40 | Inpatient (IN) | payer BC ==
[2020-01-05] MEDS ORDERED: SODIUM CHLORIDE 0.9% 1,000 ML IV STA ×3 (10:15→12:30)
--- NOTE | 2020-01-05 10:31 | ED ---
Nausea/Vomiting/Diarrhea HPI - General Chief complaint: Nausea/Vomiting/Diarrhea Stated complaint: diarrhea Time Seen by Provider: 01/05/20 10:00 Source: patient Mode of arrival: ambulatory Limitations: no limitations - History of Present Illness Initial comments: Patient is a 64-year-old male, history of A. fib, heart disease, hypertension, diabetes, presenting to the emergency Department with complaints of diarrhea 3 days. Patient states he went to his PCPs office yesterday, Dr. Prasad, who did do blood work and started him on Flagyl and Lomotil. Patient states his doctor called him today and told him he needs to go into the ER secondary to an increase in his kidney function possibly due to dehydration. Patient states he has also been having dizzy spells and feels very weak. He states he's been having anywhere from 10-15 bowel movements daily for the last 3 days. He denies any recent antibiotic use. He denies any abdominal surgeries. Denies recent fever, chills, chest pain, shortness of breath, vomiting. He does admit to mild nausea. He has no further complaints at this time. Upon arrival to the ER, his blood pressure was low at 84/53, rest of vitals are normal. - Related Data Home Medications Medication Instructions Recorded Confirmed Ezetimibe [Zetia] 10 mg PO DAILY 05/03/14 01/05/20 Cholecalciferol [Vitamin D3 (25 2,000 units PO DAILY 06/17/14 01/05/20 Mcg = 1000 Iu)] Cyanocobalamin [Vitamin B-12] 500 mcg PO DAILY 12/08/14 01/05/20 Fexofenadine HCl [Shila Allergy] 180 mg PO DAILY 05/21/16 01/05/20 Lisinopril [Zestril] 20 mg PO DAILY 05/21/16 01/05/20 Metoprolol Succinate [Toprol XL] 200 mg PO HS 05/21/16 01/05/20 Ascorbic Acid [Vitamin C] 500 mg PO DAILY 10/05/17 01/05/20 Insulin Glargine,Hum.rec.anlog 90 units SQ HS 01/14/18 01/05/20 [Elizabeth Watkins] Furosemide [Lasix] 40 mg PO DAILY@0600 05/05/18 01/05/20 Gabapentin 600 mg PO TID 05/05/18 01/05/20 Rivaroxaban [Xarelto] 15 mg PO AC-SUPPER 09/01/18 01/05/20 Evolocumab [Repatha Sureclick] 140 mg SQ Q14D 10/10/18 01/05/20 Canagliflozin [Invokana] 300 mg PO DAILY 01/05/20 01/05/20 Diphenox-Atrop 2.5-0.025 mg 2 tab PO QID PRN 01/05/20 01/05/20 [Lomotil] Dulaglutide [Trulicity] 1.5 mg SQ TH 01/05/20 01/05/20 Fluvastatin Sodium [Lescol Xl] 80 mg PO HS 01/05/20 01/05/20 Ofloxacin 0.3% Ophth Soln [Ocuflox 1 drops RIGHT EYE TID 01/05/20 01/05/20 Ophth Soln] [place]-3 Acid Ethyl Esters [Lovaza] 2 gm PO BID 01/05/20 01/05/20 Repaglinide [Prandin] 1 mg PO AC-BID 01/05/20 01/05/20 metroNIDAZOLE [Flagyl] 250 mg PO TID 01/05/20 01/05/20 prednisoLONE ACETATE 1% OPHTH 1 drops RIGHT EYE TID 01/05/20 01/05/20 [Pred Forte 1%] Previous Rx's Medication Instructions Recorded Clopidogrel [Plavix] 75 mg PO DAILY #30 tab 01/18/18 Allergies Allergy/AdvReac Type Severity Reaction Status Date / Time wheat Allergy Anaphylaxis Verified 01/05/20 13:26 Review of Systems ROS Statement: Those systems with pertinent positive or pertinent negative responses have been documented in the HPI. ROS Other: All systems not noted in ROS Statement are negative. Past Medical History Past Medical History: Atrial Fibrillation, Coronary Artery Disease (CAD), Chest Pain / Angina, Heart Failure, Diabetes Mellitus, Hyperlipidemia, Hypertension, Myocardial Infarction ([place]), Osteoarthritis (OA) Additional Past Medical History / Comment(s): tinnitis R ear, diverticulosis, "racing heart", varicose veins, Last Myocardial Infarction Date:: 1993 History of Any Multi-Drug Resistant Organisms: None Reported Past Surgical History: AICD, Appendectomy, Cardiac Ablation, Cholecystectomy, Coronary Bypass/CABG, Ear Surgery, Heart Catheterization, Heart Catheterization With Stent, Pacemaker Additional Past Surgical History / Comment(s): 2008 CABG -4 vessel, cardioversions x 3, cardiac ablation x 2 , R ear surgery, 2 cardiac stents, 2 stents on 05/07/18, cataract surgery right eye saturday Past Anesthesia/Blood Transfusion Reactions: No Reported Reaction Date of Last Stent Placement:: 05/07/18 Type of Cardiac Device: Biventricular Pacemaker, AICD Device Placement Date:: 2007 Past Psychological History: No Psychological Hx Reported Smoking Status: Never smoker Past Alcohol Use History: Occasional - Past Family History Brother(s) Family Medical History: Cancer Additional Family Medical History / Comment(s): leukemia Father Additional Family Medical History / Comment(s): Father has a pacer and is 84 yrs old. Mother Family Medical History: Cancer Additional Family Medical History / Comment(s): breast/brain General Exam - General Exam Comments Initial Comments: GENERAL: Patient appears anxious, fatigued and in no acute distress. HEAD: Atraumatic, normocephalic. EYES: Pupils equal round and reactive to light, extraocular movements intact, sclera anicteric, conjunctiva are normal. ENT: TMs normal, nares patent, oropharynx clear without exudates. Moist mucous membranes. NECK: Normal range of motion, supple without lymphadenopathy or JVD. LUNGS: Breath sounds clear to auscultation bilaterally and equal. No wheezes rales or rhonchi. HEART: Regular rate and rhythm without murmurs, rubs or gallops. ABDOMEN: Soft, nontender, hyperactive bowel sounds. No guarding, no rebound. No masses appreciated. : Deferred EXTREMITIES: Normal range of motion, no pitting or edema. No clubbing or cyanosis. NEUROLOGICAL: Normal speech, normal gait. PSYCH: Normal mood, normal affect. SKIN: Warm, Dry, normal turgor, no rashes or lesions noted. Limitations: no limitations Course Vital Signs 01/05/20 01/05/20 01/05/20 09:40 10:33 12:54 Temperature 97.5 F L Pulse Rate 88 58 L 73 Respiratory 18 16 18 Rate Blood Pressure 84/53 91/54 87/60 O2 Sat by Pulse 95 99 98 Oximetry Medical Decision Making - Medical Decision Making Patient 64-year-old male here for diarrhea 3 days, sent in by PCP for possible dehydration, increasing kidney function after labs yesterday. Patient did arrive slightly hypotensive, rest of vitals normal. His exam reveals no abdominal tenderness. Lab work revealed a creatinine of 7.25, BUN 71, acidotic. Lactic acid is 1.6. Patient denies any alcohol use or any other liquid graciela stion. He was given 2 L of fluid in the ER, as well as sodium bicarb. Patient will be admitted for CHRISTIANA, dehydration. Pt accepted by Dr. Bradley with consult to Dr. Vick. Case discussed in detail with Dr. Odonnell. - Lab Data Result diagrams: 01/05/20 10:30 01/05/20 10:30 Lab Results 01/05/20 01/05/20 01/05/20 Range/Units 10:30 10:30 10:30 WBC 8.4 (3.8-10.6) k/uL RBC 5.01 (4.30-5.90) m/uL Hgb 16.0 (13.0-17.5) gm/dL Hct 49.3 (39.0-53.0) % MCV 98.3 (80.0-100.0) fL MCH 31.9 (25.0-35.0) pg MCHC 32.4 (31.0-37.0) g/dL RDW 14.5 (11.5-15.5) % Plt Count 135 L (150-450) k/uL Neutrophils % 73 % Lymphocytes % 15 % Monocytes % 7 % Eosinophils % 2 % Basophils % 1 % Neutrophils # 6.1 (1.3-7.7) k/uL Lymphocytes # 1.3 (1.0-4.8) k/uL Monocytes # 0.6 (0-1.0) k/uL Eosinophils # 0.1 (0-0.7) k/uL Basophils # 0.1 (0-0.2) k/uL Sodium 134 L (137-145) mmol/L Potassium 5.0 (3.5-5.1) mmol/L Chloride 102 (98-107) mmol/L Carbon Dioxide 11 L (22-30) mmol/L Anion Gap 21 mmol/L BUN 71 H (9-20) mg/dL Creatinine 7.25 H* (0.66-1.25) mg/dL Est GFR (CKD-EPI)AfAm 8 (>60 ml/min/1.73 sqM) Est GFR (CKD-EPI)NonAf 7 (>60 ml/min/1.73 sqM) Glucose 191 H (74-99) mg/dL Osmolality (280-301) mosm/kg Plasma Lactic Acid Diego 1.6 (0.7-2.0) mmol/L Calcium 8.9 (8.4-10.2) mg/dL Total Bilirubin 0.7 (0.2-1.3) mg/dL AST 22 (17-59) U/L ALT 23 (4-49) U/L Alkaline Phosphatase 46 (38-126) U/L Total Protein 7.7 (6.3-8.2) g/dL Albumin 4.7 (3.5-5.0) g/dL Serum Alcohol mg/dL 01/05/20 Range/Units 11:38 WBC (3.8-10.6) k/uL RBC (4.30-5.90) m/uL Hgb (13.0-17.5) gm/dL Hct (39.0-53.0) % MCV (80.0-100.0) fL MCH (25.0-35.0) pg MCHC (31.0-37.0) g/dL RDW (11.5-15.5) % Plt Count (150-450) k/uL Neutrophils % % Lymphocytes % % Monocytes % % Eosinophils % % Basophils % % Neutrophils # (1.3-7.7) k/uL Lymphocytes # (1.0-4.8) k/uL Monocytes # (0-1.0) k/uL Eosinophils # (0-0.7) k/uL Basophils # (0-0.2) k/uL Sodium (137-145) mmol/L Potassium (3.5-5.1) mmol/L Chloride (98-107) mmol/L Carbon Dioxide (22-30) mmol/L Anion Gap mmol/L BUN (9-20) mg/dL Creatinine (0.66-1.25) mg/dL Est GFR (CKD-EPI)AfAm (>60 ml/min/1.73 sqM) Est GFR (CKD-EPI)NonAf (>60 ml/min/1.73 sqM) Glucose (74-99) mg/dL Osmolality 308 H (280-301) mosm/kg Plasma Lactic Acid Diego (0.7-2.0) mmol/L Calcium (8.4-10.2) mg/dL Total Bilirubin (0.2-1.3) mg/dL AST (17-59) U/L ALT (4-49) U/L Alkaline Phosphatase (38-126) U/L Total Protein (6.3-8.2) g/dL Albumin (3.5-5.0) g/dL Serum Alcohol <10 mg/dL Disposition Clinical Impression: CHRISTIANA (acute kidney injury), Dehydration, Diarrhea, Hypotension Disposition: ADMITTED IP TO THIS [facility] Condition: Good Decision Date: 01/05/20 Decision Time: 12:31
[2020-01-05 10:46] LABS: Basophils # (A) 0.1 k/uL (0-0.2); Basophils % (A) 1 %; Eosinophils # (A) 0.1 k/uL (0-0.7); Eosinophils % (A) 2 %; HCT 49.3 % (39.0-53.0); Lymphocytes # (A) 1.3 k/uL (1.0-4.8); Lymphocytes % (A) 15 %; MCH 31.9 pg (25.0-35.0); MCHC 32.4 g/dL (31.0-37.0); MCV 98.3 fL (80.0-100.0); Mean Platelet Volume 8.3; Monocytes # (A) 0.6 k/uL (0-1.0); Monocytes % (A) 7 %; Neutrophils # (A) 6.1 k/uL (1.3-7.7); Neutrophils % (A) 73 %; Platelet Count 135 k/uL (150-450); RBC 5.01 m/uL (4.30-5.90); RDW 14.5 % (11.5-15.5); WBC 8.4 k/uL (3.8-10.6)
[2020-01-05 10:55] LABS: Albumin 4.7 g/dL (3.5-5.0); Calcium 8.9 mg/dL (8.4-10.2); Total Bilirubin 0.7 mg/dL (0.2-1.3); Total Protein 7.7 g/dL (6.3-8.2)
[2020-01-05 12:10] LABS: Alcohol <10 mg/dL
[2020-01-05] MEDS ORDERED: SODIUM BICARB 8.4% 50 ML SYR (1 MEQ/ML) IV STA (12:14)
[2020-01-05] MEDS ORDERED: DEXTROSE 5% IN WATER 1,000 ML with SODIUM BICARB (1 MEQ/ML) 100 ML IV SCH (12:15)
[2020-01-05] MEDS ORDERED: NALOXONE 0.4 MG/ML 1 ML VIAL IV PRN (12:28)
[2020-01-05] MEDS ORDERED: ACETAMINOPHEN TAB 325 MG TAB PO PRN (12:28)
[2020-01-05 17:22] LABS: Bacteria,Urine Rare /hpf; Hyaline Casts,Urine 26 /lpf (0-2); Mucus,Urine Occasional /hpf; RBC,Urine 1 /hpf (0-5); Squamous Epithelial Cell,Urine 1 /hpf (0-4); WBC,Urine 3 /hpf (0-5)
[2020-01-05 17:39] LABS: Appearance,Urine Clear (Clear); Color,Urine Yellow
[2020-01-05 17:40] LABS: Bilirubin,Urine Negative (Negative); Blood,Urine Negative (Negative); Glucose,Urine (UA) 1+ (Negative); Ketones,Urine Negative (Negative); Leukocyte Esterase,Urine Negative (Negative); Nitrite,Urine Negative (Negative); Protein,Urine 1+ (Negative); Specific Gravity,Urine 1.021 (1.001-1.035); Urobilinogen,Urine <2.0 mg/dL (<2.0)
[2020-01-05] MEDS ORDERED: INSULIN ASPART (NovoLOG) 100 UNIT/ML VIAL SQ SCH (21:00)
[2020-01-05 21:02] LABS: Glucose,Whole Blood 172 mg/dL (75-99)
[2020-01-05] MEDS: ATORVASTATIN 10 MG TAB PO SCH (21:04)
[2020-01-05] MEDS: INSULIN DETEMIR (LEVEMIR) 100 UNIT/ML SYR SQ SCH (21:04)
[2020-01-05] MEDS: GABAPENTIN 300 MG CAP PO SCH (21:04)
[2020-01-05] MEDS: INSULIN ASPART (NovoLOG) 100 UNIT/ML VIAL SQ SCH (21:04)
[2020-01-05] MEDS: SODIUM CHLORIDE 0.9% 1,000 ML IV SCH (21:05)
[2020-01-05] MEDS: OFLOXACIN 0.3% OPHTH DROPS 5 ML BOTTLE RIGHT EYE SCH (21:06)
[2020-01-05] MEDS: prednisoLONE ACETATE 1% OPHTH DROPS 5 ML BTL RIGHT EYE SCH (21:06)
--- NOTE | 2020-01-05 21:12 | P.HPIM ---
History of Present Illness H&P Date: 01/05/20 Chief Complaint: Weak and tired History of presenting complaint: This is a pleasant 64-year-old patient of Dr. demarco. We'll make stable medical conditions include atrial flutter fibrillation, coronary artery disease with bypass and stent 2009, CHF, diabetes, hyperlipidemia, hypertension, primary osteoarthritis, chronic tinnitus in the right ear, diverticulosis and varicose veins. Patient for his ago started having increasing frequent diarrhea every hour. No blood. Abdominal pain. No nausea vomiting. Denies any fever and chills. Continue The same. Patient started on Flagyl and Lomotil. Cut some [place] done. His family doctor called and decided that because of his kidney for which getting what he needs to go to the ER. Patient is nearly been passing out able to keep some fluids down. Patient returns found to be was 7 in the ER. Admitted for the same. Started on IV fluids. Review of systems: GEN.: Tired and dizzy EYES: None HEENT: None NECK: None RESPIRATORY: None CARDIOVASCULAR: None GASTROINTESTINAL: As above GENITOURINARY: None MUSCULOSKELETAL: None LYMPHATICS: None HEMATOLOGICAL: None PSYCHIATRY: None NEUROLOGICAL: Nil Focal Past medical history to include: Atrial flutter fibrillation, coronary artery disease, CHF, diabetes, hyperten elizabeth, hyperlipidemia, osteoarthritis, tinnitus in the right ear, diverticulosis, varicose veins, AICD, coronary artery disease with stent and bypass Social history: . Started the ages 19 and quit in 1993. Smoked up to 2 packs a day. Alcohol occasionally. 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 Physical examination: VITAL SIGNS: 97.5, 88, 18, 84/53, 95% room air GENERAL: BMI 28.2, laying in bed slightly tired. EYES: Pupils equal. Conjunctiva normal. HEENT: External appearance of nose and ears normal, oral cavity dry mucous. NECK: JVD not raised; masses not palpable. HEART: First and second heart sounds are normal; no edema. LUNGS: Respiratory rate normal; clear to auscultation. ABDOMEN: Soft, nontender, liver spleen not palpable, no masses palpable. PSYCH: Alert and oriented x3; mood and affect normal. NEUROLOGICAL: Cranial nerves grossly intact; no facial asymmetry, power and sensation grossly intact. LYMPHATICS: No lymph nodes palpable in the axilla and neck INVESTIGATIONS, reviewed in the clinical context: White count 8.4 hemoglobin 16 platelets 135 potassium 5 bun 71 creatinine 7.25 serum osmolality 308 Patient's creatinine back in August 2019 was 1.5 Assessment: -Acute kidney injury possibly combination of ATN and prerenal from patient having some diarrhea and patient also on medications to include an O'Munir, Lasix Zestril which have been held now. -Acute severe diarrhea with no problem. No fever no chills. No recent antibiotic exposure. We'll check ova and parasites and rule out C. diff. -Persistent atrial fibrillation -Coronary artery disease per history of bypass and stents -Chronic congestive heart failure EF not known -Diabetes mellitus type 2 chronically on insulin -Hyperlipidemia -Hypotension from volume loss -Essential hypertension -Primary osteoarthritis -Chronic tinnitus of the right ear -Chronic diverticulosis Plan: Hold of patient's MADIE inhibitor and diuretic.. Start IV fluids. Resume Accu- Cheks with Lantus. Dose of gabapentin infiltrate review of renal failure has been cut back. Also ordered a renal ultrasound. Neurology was consulted. Care was discussed with the patient. Question answered. Past Medical History Past Medical History: Atrial Fibrillation, Coronary Artery Disease (CAD), Chest Pain / Angina, Heart Failure, Diabetes Mellitus, Hyperlipidemia, Hypertension, Myocardial Infarction ([place]), Osteoarthritis (OA) Additional Past Medical History / Comment(s): tinnitis R ear, diverticulosis, "racing heart", varicose veins, Last Myocardial Infarction Date:: 1993 History of Any Multi-Drug Resistant Organisms: None Reported Past Surgical History: AICD, Appendectomy, Cardiac Ablation, Cholecystectomy, Coronary Bypass/CABG, Ear Surgery, Heart Catheterization, Heart Catheterization With Stent, Pacemaker Additional Past Surgical History / Comment(s): 2008 CABG -4 vessel, cardioversions x 3, cardiac ablation x 2 , R ear surgery, 2 cardiac stents, 2 stents on 05/07/18, cataract surgery right eye saturday Past Anesthesia/Blood Transfusion Reactions: No Reported Reaction Date of Last Stent Placement:: 05/07/18 Type of Cardiac Device: Biventricular Pacemaker, AICD Device Placement Date:: 2007 Past Psychological History: No Psychological Hx Reported Smoking Status: Never smoker Past Alcohol Use History: Occasional - Past Family History Brother(s) Family Medical History: Cancer Additional Family Medical History / Comment(s): leukemia Father Additional Family Medical History / Comment(s): Father has a pacer and is 84 yrs old. Mother Family Medical History: Cancer Additional Family Medical History / Comment(s): breast/brain Medications and Allergies Home Medications Medication Instructions Recorded Confirmed Type Ezetimibe [Zetia] 10 mg PO DAILY 05/03/14 01/05/20 History Cholecalciferol [Vitamin D3 (25 2,000 units PO DAILY 06/17/14 01/05/20 History Mcg = 1000 Iu)] Cyanocobalamin [Vitamin B-12] 500 mcg PO DAILY 12/08/14 01/05/20 History Fexofenadine HCl [Shila Allergy] 180 mg PO DAILY 05/21/16 01/05/20 History Lisinopril [Zestril] 20 mg PO DAILY 05/21/16 01/05/20 History Metoprolol Succinate [Toprol XL] 200 mg PO HS 05/21/16 01/05/20 History Ascorbic Acid [Vitamin C] 500 mg PO DAILY 10/05/17 01/05/20 History Insulin Glargine,Hum.rec.anlog 90 units SQ HS 01/14/18 01/05/20 History [Touwilbert Burrellostgarret] Clopidogrel [Plavix] 75 mg PO DAILY #30 tab 01/18/18 01/05/20 Rx Furosemide [Lasix] 40 mg PO DAILY@0600 05/05/18 01/05/20 History Gabapentin 600 mg PO TID 05/05/18 01/05/20 History Rivaroxaban [Xarelto] 15 mg PO AC-SUPPER 09/01/18 01/05/20 History Evolocumab [Repatha Sureclick] 140 mg SQ Q14D 10/10/18 01/05/20 History Canagliflozin [Invokana] 300 mg PO DAILY 01/05/20 01/05/20 History Diphenox-Atrop 2.5-0.025 mg 2 tab PO QID PRN 01/05/20 01/05/20 History [Lomotil] Dulaglutide [Trulicity] 1.5 mg SQ TH 01/05/20 01/05/20 History Fluvastatin Sodium [Lescol Xl] 80 mg PO HS 01/05/20 01/05/20 History Ofloxacin 0.3% Ophth Soln [Ocuflox 1 drops RIGHT EYE TID 01/05/20 01/05/20 History Ophth Soln] [place]-3 Acid Ethyl Esters [Lovaza] 2 gm PO BID 01/05/20 01/05/20 History Repaglinide [Prandin] 1 mg PO AC-BID 01/05/20 01/05/20 History metroNIDAZOLE [Flagyl] 250 mg PO TID 01/05/20 01/05/20 History prednisoLONE ACETATE 1% OPHTH 1 drops RIGHT EYE TID 01/05/20 01/05/20 History [Pred Forte 1%] Allergies Allergy/AdvReac Type Severity Reaction Status Date / Time wheat Allergy Anaphylaxis Verified 01/05/20 13:26 Physical Exam Vitals: Vital Signs Temp Pulse Pulse Resp BP BP Pulse Ox 01/05/20 13:33 97.4 F L 67 16 101/58 99 01/05/20 12:54 73 18 87/60 98 01/05/20 10:33 58 L 16 91/54 99 01/05/20 09:40 97.5 F L 88 18 84/53 95 Intake and Output 01/05/20 01/05/20 01/05/20 06:59 14:59 22:59 Other: Weight 97.069 kg 97.069 kg Results CBC & Chem 7: 01/05/20 10:30 01/05/20 10:30 Labs: Abnormal Lab Results - Last 24 Hours (Table) 01/05/20 01/05/20 01/05/20 Range/Units 10:30 10:30 11:38 Plt Count 135 L (150-450) k/uL Sodium 134 L (137-145) mmol/L Carbon Dioxide 11 L (22-30) mmol/L BUN 71 H (9-20) mg/dL Creatinine 7.25 H* (0.66-1.25) mg/dL Glucose 191 H (74-99) mg/dL POC Glucose (mg/dL) (75-99) mg/dL Osmolality 308 H (280-301) mosm/kg Urine Protein (Negative) Urine Glucose (UA) (Negative) Urine Bacteria (None) /hpf Hyaline Casts (0-2) /lpf Urine Mucus (None) /hpf 01/05/20 01/05/20 Range/Units 16:00 20:59 Plt Count (150-450) k/uL Sodium (137-145) mmol/L Carbon Dioxide (22-30) mmol/L BUN (9-20) mg/dL Creatinine (0.66-1.25) mg/dL Glucose (74-99) mg/dL POC Glucose (mg/dL) 172 H (75-99) mg/dL Osmolality (280-301) mosm/kg Urine Protein 1+ H (Negative) Urine Glucose (UA) 1+ H (Negative) Urine Bacteria Rare H (None) /hpf Hyaline Casts 26 H (0-2) /lpf Urine Mucus Occasional H (None) /hpf Thrombosis Risk Factor Assmnt - Choose All That Apply Any of the Below Risk Factors Present?: Yes Each Factor Represents 1 point: Obesity (BMI >25), Varicose veins Other Risk Factors: Yes Each Risk Factor Represents 2 Points: Age 61-74 years Other congenital or acquired thrombophilia - If yes, enter type in comment: No Thrombosis Risk Factor Assessment Total Risk Factor Score: 4 Thrombosis Risk Factor Assessment Level: Moderate Risk
[2020-01-05] MEDS: ENOXAPARIN 30 MG/0.3 ML SYRINGE SQ SCH (21:21)
[2020-01-06 01:02] LABS: Glucose,Whole Blood 60 mg/dL (75-99)
[2020-01-06 01:20] LABS: Glucose,Whole Blood 90 mg/dL (75-99)
[2020-01-06] MEDS: SODIUM CHLORIDE 0.9% 1,000 ML IV SCH ×3 (03:43→13:09)
[2020-01-06 06:08] LABS: Glucose,Whole Blood 70 mg/dL (75-99)
[2020-01-06 06:13] LABS: Glucose,Whole Blood 82 mg/dL (75-99)
[2020-01-06 07:11] LABS: HCT 42.6 % (39.0-53.0); HGB 13.9 gm/dL (13.0-17.5); MCH 31.9 pg (25.0-35.0); MCHC 32.7 g/dL (31.0-37.0); MCV 97.5 fL (80.0-100.0); Platelet Count 109 k/uL (150-450); RBC 4.36 m/uL (4.30-5.90); RDW 14.5 % (11.5-15.5); WBC 6.3 k/uL (3.8-10.6)
[2020-01-06 07:12] LABS: Glucose,Whole Blood 128 mg/dL (75-99)
[2020-01-06 07:27] LABS: Potassium 4.1 mmol/L (3.5-5.1)
[2020-01-06 07:28] LABS: Albumin 3.8 g/dL (3.5-5.0); Calcium 7.5 mg/dL (8.4-10.2); Phosphorus 6.7 mg/dL (2.5-4.5); Total Bilirubin 0.4 mg/dL (0.2-1.3); Total Protein 6.1 g/dL (6.3-8.2)
[2020-01-06] MEDS: INSULIN ASPART (NovoLOG) 100 UNIT/ML VIAL SQ SCH ×4 (07:40→21:21)
[2020-01-06] MEDS: CALCIUM ACETATE 667 MG TAB PO SCH ×3 (07:48→17:50)
[2020-01-06] MEDS: EZETIMIBE 10 MG TAB PO SCH (07:48)
[2020-01-06] MEDS: prednisoLONE ACETATE 1% OPHTH DROPS 5 ML BTL RIGHT EYE SCH ×3 (07:49→21:21)
[2020-01-06] MEDS: CYANOCOBALAMIN 500 MCG TAB PO SCH (07:49)
[2020-01-06] MEDS: OFLOXACIN 0.3% OPHTH DROPS 5 ML BOTTLE RIGHT EYE SCH ×3 (07:49→21:21)
[2020-01-06] MEDS ORDERED: LORATADINE 10 MG TAB PO SCH (09:00)
--- NOTE | 2020-01-06 10:28 | US ---
EXAMINATION TYPE: US kidneys/renal and bladder DATE OF EXAM: 01/06/2020 COMPARISON: NONE CLINICAL HISTORY: kidney injury. Acute kidney injury EXAM MEASUREMENTS: Right Kidney: 11.7 x 5.3 x 5.1 cm Left Kidney: 10.5 x 4.4 x 3.1 cm Right Kidney: wnl Left Kidney: wnl Bladder: wnl Bilateral Jets seen: No IMPRESSION: 1. Normal renal ultrasound appears normal. 2. Ureteral jets are not identified during this exam.
[2020-01-06 11:42] LABS: Glucose,Whole Blood 145 mg/dL (75-99)
[2020-01-06] MEDS ORDERED: SODIUM CHLORIDE 0.45% 1,000 ML with SODIUM BICARB (1 MEQ/ML) 100 ML IV SCH ×2 (15:15)
[2020-01-06 17:06] LABS: Glucose,Whole Blood 97 mg/dL (75-99)
--- NOTE | 2020-01-06 17:42 | CONS ---
CONSULTATION REASON FOR CONSULT: Renal failure. HISTORY OF PRESENT ILLNESS: Patient is a 64-year-old male with a history of hypertension, type 2 diabetes, hyperlipidemia, osteoarthritis, coronary artery disease, who was admitted to the hospital with complaints of excessive weakness going on for about a week or so. The patient states that he had diarrhea as outpatient for about 3 days and his weakness progressively worsened. Therefore he went to see his PCP. He had labs drawn which showed significant worsening of renal function, and therefore patient was advised to go to the emergency room. He did admit to decreased urine output over the last couple of days. The patient was maintained on lisinopril prior to admission. Blood pressure has been low, with systolic around 101 currently but as low as 84 mmHg yesterday. Serum creatinine was 7.25 mg/dL and is now down to 4.2. Previous creatinine noted to be 1.3 in March of 2019 and 1.5 in August of 2019. Patient states he is feeling better. He is maintained on IV fluids. MADIE inhibitors are currently on hold. No history of use of NSAIDs. PAST MEDICAL HISTORY: Past medical history is significant for hypertension, coronary artery disease, history of CHF, atrial fibrillation, hyperlipidemia, VT, osteoarthritis, diverticulosis. PAST SURGICAL HISTORY: Appendectomy, AICD placement, cardiac ablation, cholecystectomy, coronary artery bypass surgery, coronary stent, pacemaker placement, cataract surgeries. SOCIAL HISTORY: Negative for smoking, drug abuse or alcohol abuse. REVIEW OF SYSTEMS: As per HPI. Other systems negative. MEDICATIONS: Medications at home prior to admission included Zetia, vitamin D, vitamin B12, Zestril, Toprol, vitamin C, Plavix, Lasix, gabapentin, Xarelto, Invokana, Trulicity, Lescol, Prandin, Flagyl. ALLERGIES: ALLERGIES include WHEAT. It causes anaphylaxis. PHYSICAL EXAMINATION: Patient is currently comfortable, awake, not in any acute distress. Blood pressure is 112/69, heart rate 83 per minute. He is afebrile. EXAMINATION OF THE HEART: S1 and S2. EXAMINATION OF LUNGS: Bilateral breath sounds are heard. ABDOMEN: Soft, non-tender. Examination of lower extremities shows no significant edema. 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 LABS: Labs show sodium 136, potassium 4.1, chloride 106. CO2 is 18, BUN 66 serum creatinine 4.21, hemoglobin 13.9 g/dL. ASSESSMENT: 1. Acute kidney injury associated with hypotension, hypoperfusion in the setting of use of MADIE inhibitors and hypovolemia, currently improved significantly with IV fluids. Continue to hold off on MADIE inhibitors. Continue IV hydration. 2. Non-gap metabolic acidosis associated with advanced renal failure, currently improved, status post bicarb drip. 3. Volume depletion associated with diarrhea, currently improved. Continue with IV fluids. 4. History of coronary artery disease with coronary stents and coronary artery bypass surgery. 5. Diarrhea, possible viral gastroenteritis; seems to be improving. C difficile colitis toxin is pending. 6. Hyperphosphatemia associated with renal failure. Can hold off on phosphate binders, as serum phosphorus should come down with improving renal function. PLAN: Switch IV fluids to half-normal saline with 2 amps of sodium bicarb. Repeat labs in a.m. Repeat urinalysis in 2-3 days after hydration. Continue to hold off on MADIE inhibitors for now. Will discontinue the PhosLo, as the serum phosphorus will improve with improving renal function. Thank you for this consultation. Will continue to follow the patient with you during his hospitalization. MMODL / IJN: [id number] /
[2020-01-06] MEDS: SODIUM CHLORIDE 0.45% 1,000 ML with SODIUM BICARB (1 MEQ/ML) 100 ML IV SCH ×2 (18:01)
[2020-01-06 20:12] LABS: Glucose,Whole Blood 235 mg/dL (75-99)
[2020-01-06] MEDS ORDERED: INSULIN DETEMIR (LEVEMIR) 100 UNIT/ML SYR SQ SCH ×2 (21:00→21:15)
[2020-01-06] MEDS: GABAPENTIN 300 MG CAP PO SCH (21:21)
[2020-01-06] MEDS: ATORVASTATIN 10 MG TAB PO SCH (21:21)
[2020-01-06] MEDS: ENOXAPARIN 30 MG/0.3 ML SYRINGE SQ SCH (21:21)
[2020-01-06] MEDS: INSULIN DETEMIR (LEVEMIR) 100 UNIT/ML SYR SQ SCH (22:21)
--- NOTE | 2020-01-06 22:46 | P.PN ---
Progress Note - Text Progress Note Date: 01/06/20 Chief Complaint: Weak and tired History of presenting complaint: This is a pleasant 64-year-old patient of Dr. demarco. Chronic stable medical conditions include atrial flutter fibrillation, coronary artery disease with bypass and stent 2009, CHF, diabetes, hyperlipidemia, hypertension, primary osteoarthritis, chronic tinnitus in the right ear, diverticulosis and varicose veins. 4 days ago started having increasing frequent diarrhea every hour. No blood. Abdominal pain. No nausea vomiting. Denies any fever and chills. Continue The same. Patient started on Flagyl and Lomotil. Not much improvement. His family doctor informed him off of his kidney function for which getting what he needs to go to the ER. Patient is nearly been passing out, not able to keep some fluids down. Creatinine found to be was 7 in the ER. Admitted for the same. Started on IV fluids. Admitted with acute kidney injury possibly ATN prerenal, severe diarrhea. Today-feeling better. Urine output improving. Did tolerate liquid diet. Dietary improving. Getting IV fluids. Sitting up in a chair. Review of systems: Was done for constitutional, cardiovascular, GI, pulmonary. relevant finding as above Active Medications Acetaminophen (Tylenol Tab) 650 mg PO Q6HR PRN PRN Reason: Mild Pain or Fever > 100.5 Atorvastatin Calcium (Lipitor) 10 mg PO [facility] Last Admin: 01/06/20 21:21 Dose: Not Given Documented by: Calcium Acetate (Phoslo) 1,334 mg PO TID-W/MEALS [facility] Last Admin: 01/06/20 17:50 Dose: 1,334 mg Documented by: Cyanocobalamin (Vitamin B-12) 500 mcg PO DAILY [facility] Last Admin: 01/06/20 07:49 Dose: 500 mcg Documented by: Ezetimibe (Zetia) 10 mg PO DAILY [facility] Last Admin: 01/06/20 07:48 Dose: 10 mg Documented by: Enoxaparin Sodium (Lovenox) 30 mg SQ [facility] Last Admin: 01/06/20 21:21 Dose: Not Given Documented by: Gabapentin (Neurontin) 600 mg PO [facility] Last Admin: 01/06/20 21:21 Dose: Not Given Documented by: Sodium Bicarbonate 100 ml/ (Sodium Chloride) 1,100 mls @ 100 mls/hr IV .Q11H [facility] Last Admin: 01/06/20 18:01 Dose: Not Given Documented by: Sodium Bicarbonate 100 ml/ (Sodium Chloride) 1,100 mls @ 100 mls/hr IV .Q11H [facility] Insulin Aspart (Novolog) 0 unit SQ [facility]; Protocol Last Admin: 01/06/20 21:21 Dose: Not Given Documented by: Insulin Detemir (Levemir) 60 unit SQ HS [facility] Last Admin: 01/06/20 21:21 Dose: Not Given Documented by: Insulin Detemir (Levemir) 60 unit SQ HS [facility] Loperamide HCl (Imodium) 2 mg PO Q2HR PRN PRN Reason: Loose Stool Naloxone HCl (Narcan) 0.2 mg IV Q2M PRN PRN Reason: Opioid Reversal Patient's Own ( Dulaglutide [ Trulicity] 1.5 Mg) 1.5 mg SQ TH [facility] Ofloxacin (Ocuflox Ophth) 1 drops RIGHT EYE TID [facility] Last Admin: 01/06/20 21:21 Dose: Not Given Documented by: Prednisolone Acetate (Pred Forte 1%) 1 drops RIGHT EYE TID [facility] Last Admin: 01/06/20 21:21 Dose: Not Given Documented by: Physical examination: VITAL SIGNS: 97.4, 83, 12, 112/69, 97% on room air GENERAL: Sitting upon a chair, looking much better EYES: Pupils equal. Conjunctiva normal. HEENT: External appearance of nose and ears normal, oral cavity normal. NECK: JVD not raised; masses not palpable. HEART: First and second heart sounds are normal; no edema. LUNGS: Respiratory rate normal; clear to auscultation. ABDOMEN: Soft, nontender, liver spleen not palpable, no masses palpable. PSYCH: Alert and oriented x3; mood and affect normal. INVESTIGATIONS, reviewed in the clinical context: White count 6.3 hemoglobin 13.9 potassium 4.1 bun 66 creatinine 4.21 phosphorus 6.7 Previous testing White count 8.4 hemoglobin 16 platelets 135 potassium 5 bun 71 creatinine 7.25 serum osmolality 308 Patient's creatinine back in August 2019 was 1.5 Assessment: -Acute kidney injury possibly combination of ATN and prerenal from patient having some diarrhea and patient also on medications to include an O'Munir, Lasix Zestril which have been held now.-Slow to respond -Acute severe diarrhea with no blood No fever no chills. No recent antibiotic exposure. We'll check ova and parasites and rule out C. diff.-improving -Persistent atrial fibrillation -Coronary artery disease per history of bypass and stents -Chronic congestive heart failure EF not known -Diabetes mellitus type 2 chronically on insulin, uncontrolled with hypoglycemia. -Hyperlipidemia -Hypotension from volume loss -Essential hypertension -Primary osteoarthritis -Chronic tinnitus of the right ear -Chronic diverticulosis -Hyperphosphatemia from acute kidney injury Plan: Discussed with the patient. Continue with IV fluids. Repeat labs in the morning." Dose of Lantus to 60 units. Continue IV fluids. With bicarbonate. Discussed with patient.
[2020-01-06 23:53] LABS: Glucose,Whole Blood 92 mg/dL (75-99)
[2020-01-06 23:53] LABS: Glucose,Whole Blood 61 mg/dL (75-99)
[2020-01-07 02:07] LABS: Glucose,Whole Blood 70 mg/dL (75-99)
[2020-01-07 02:28] LABS: Glucose,Whole Blood 87 mg/dL (75-99)
[2020-01-07] MEDS: SODIUM CHLORIDE 0.45% 1,000 ML with SODIUM BICARB (1 MEQ/ML) 100 ML IV SCH ×4 (04:01→16:17)
[2020-01-07 04:20] LABS: Glucose,Whole Blood 97 mg/dL (75-99)
[2020-01-07 06:12] LABS: Glucose,Whole Blood 62 mg/dL (75-99)
[2020-01-07] MEDS: LOPERAMIDE 2 MG CAP PO PRN ×4 (06:22→20:56)
[2020-01-07 06:28] LABS: Glucose,Whole Blood 75 mg/dL (75-99)
[2020-01-07 07:05] LABS: Glucose,Whole Blood 149 mg/dL (75-99)
[2020-01-07 07:31] LABS: Potassium 3.4 mmol/L (3.5-5.1)
[2020-01-07] MEDS: CALCIUM ACETATE 667 MG TAB PO SCH (08:07)
[2020-01-07] MEDS: CYANOCOBALAMIN 500 MCG TAB PO SCH (08:08)
[2020-01-07] MEDS: INSULIN ASPART (NovoLOG) 100 UNIT/ML VIAL SQ SCH ×4 (08:08→20:50)
[2020-01-07] MEDS: EZETIMIBE 10 MG TAB PO SCH (08:12)
[2020-01-07] MEDS: OFLOXACIN 0.3% OPHTH DROPS 5 ML BOTTLE RIGHT EYE SCH ×3 (08:12→20:54)
[2020-01-07] MEDS: prednisoLONE ACETATE 1% OPHTH DROPS 5 ML BTL RIGHT EYE SCH ×3 (08:12→20:54)
[2020-01-07 11:52] LABS: Glucose,Whole Blood 153 mg/dL (75-99)
[2020-01-07] MEDS ORDERED: DULAGLUTIDE 1.5 MG SQ SCH (12:00)
[2020-01-07] MEDS: PSYLLIUM HUSK 100% 6 GM PACKET PO SCH ×2 (13:04→20:53)
[2020-01-07] MEDS: CLOPIDOGREL 75 MG TAB PO SCH (15:21)
--- NOTE | 2020-01-07 15:35 | PN ---
PROGRESS NOTE Patient is seen for followup for acute kidney injury mostly prerenal, currently significantly improved with IV hydration. The patient is still maintained on liquid diet. He continues to have some diarrhea on and off, but overall feeling much better. PHYSICAL EXAMINATION: On examination today, blood pressure 137/74, heart rate 83 per minute, he is afebrile. Examination of the heart S1, S2. Examination of the lungs, bilateral breath sounds are heard. Abdomen is soft, nontender. Examination of the lower extremities shows no evidence of edema. 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 LABS: Show sodium 141, potassium 3.4, chloride 107, CO2 is 24, BUN 36, creatinine 1.53. ASSESSMENT: 1. Acute kidney injury, prerenal currently significantly improved. Continue with IV fluids. Encourage increased oral intake. Continue to hold off on MADIE inhibitors for now. 2. Non-gap metabolic acidosis secondary to renal failure and diarrhea, now improved. 3. Volume depletion, improving. 4. History of coronary artery disease with coronary stents and coronary artery bypass surgery. 5. Diarrhea, most likely viral gastroenteritis. Clostridium difficile toxin is negative. PLAN: Continue IV fluids, repeat labs in a.m. If patient is able to tolerate oral intake, he could be discharged with repeat labs to be done as outpatient. Continue to hold off on MADIE inhibitors for now. MMODL / IJN: [id number] /
[2020-01-07] MEDS ORDERED: DULAGLUTIDE 1.5 MG/0.5 ML SQ SCH (16:00)
[2020-01-07] MEDS ORDERED: RIVAROXABAN 15 MG TAB PO SCH (17:30)
[2020-01-07 17:37] LABS: Glucose,Whole Blood 93 mg/dL (75-99)
[2020-01-07] MEDS: REPAGLINIDE 1 MG TAB PO SCH (17:38)
--- NOTE | 2020-01-07 18:22 | P.PN ---
Progress Note - Text Progress Note Date: 01/07/20 Chief Complaint: Weak and tired History of presenting complaint: This is a pleasant 64-year-old patient of Dr. demarco. Chronic stable medical conditions include atrial flutter fibrillation, coronary artery disease with bypass and stent 2009, CHF, diabetes, hyperlipidemia, hypertension, primary osteoarthritis, chronic tinnitus in the right ear, diverticulosis and varicose veins. 4 days ago started having increasing frequent diarrhea every hour. No blood. Abdominal pain. No nausea vomiting. Denies any fever and chills. Continue The same. Patient started on Flagyl and Lomotil. Not much improvement. His family doctor informed him off of his kidney function for which getting what he needs to go to the ER. Patient is nearly been passing out, not able to keep some fluids down. Creatinine found to be was 7 in the ER. Admitted for the same. Started on IV fluids. Admitted with acute kidney injury possibly ATN prerenal, severe diarrhea. Stool came back negative for ova and parasites and C. diff. Today-diarrhea improving but present. On liquid diet. Diet advanced. Feeling much better. Review of systems: Was done for constitutional, cardiovascular, GI, pulmonary. relevant finding as above Active Medications Acetaminophen (Tylenol Tab) 650 mg PO Q6HR PRN PRN Reason: Mild Pain or Fever > 100.5 Last Admin: 01/07/20 13:06 Dose: 650 mg Documented by: Ascorbic Acid (Vitamin C) 500 mg PO DAILY [facility] Atorvastatin Calcium (Lipitor) 10 mg PO [facility] Last Admin: 01/06/20 21:21 Dose: Not Given Documented by: Clopidogrel Bisulfate (Plavix) 75 mg PO DAILY [facility] Last Admin: 01/07/20 15:21 Dose: 75 mg Documented by: Cyanocobalamin (Vitamin B-12) 500 mcg PO DAILY [facility] Last Admin: 01/07/20 08:08 Dose: 500 mcg Documented by: Ezetimibe (Zetia) 10 mg PO DAILY [facility] Last Admin: 01/07/20 08:12 Dose: 10 mg Documented by: Gabapentin (Neurontin) 600 mg PO [facility] Last Admin: 01/06/20 21:21 Dose: Not Given Documented by: Sodium Bicarbonate 100 ml/ (Sodium Chloride) 1,100 mls @ 100 mls/hr IV .Q11H [facility] Last Admin: 01/07/20 16:17 Dose: 100 mls/hr Documented by: Insulin Aspart (Novolog) 0 unit SQ ACHS [facility]; Protocol Last Admin: 01/07/20 17:37 Dose: Not Given Documented by: Loperamide HCl (Imodium) 2 mg PO Q2HR PRN PRN Reason: Loose Stool Last Admin: 01/07/20 15:32 Dose: 2 mg Documented by: Loratadine (Claritin) 10 mg PO DAILY [facility] Melatonin (Melatonin) 3 mg PO HS [facility] Metoprolol Succinate (Toprol Xl) 200 mg PO HS [facility] Naloxone HCl (Narcan) 0.2 mg IV Q2M PRN PRN Reason: Opioid Reversal Patient's Own Med ( Dulaglutide [ Trulicity] 1.5 Mg/0. 5 Ml) 1.5 mg SQ [facility] Last Admin: 01/07/20 15:21 Dose: 1.5 mg Documented by: Patients Own Med ( (Toujeo)) 60 each SQ HS [facility] Ofloxacin (Ocuflox Ophth) 1 drops RIGHT EYE TID [facility] Last Admin: 01/07/20 15:25 Dose: 1 drops Documented by: Prednisolone Acetate (Pred Forte 1%) 1 drops RIGHT EYE TID [facility] Last Admin: 01/07/20 15:25 Dose: 1 drops Documented by: Psyllium Hydrophilic Mucilloid (Metamucil) 6 gm PO BID [facility] Last Admin: 01/07/20 13:04 Dose: 6 gm Documented by: Repaglinide (Prandin) 1 mg PO AC-BID [facility] Last Admin: 01/07/20 17:38 Dose: Not Given Documented by: Rivaroxaban (Xarelto) 15 mg PO AC-SUPPER [facility] Last Admin: 01/07/20 18:15 Dose: 15 mg Documented by: Physical examination: VITAL SIGNS: 97.5, 83, 14, 137/74, 97% room air GENERAL: Sitting upon a chair, improved EYES: Pupils equal. Conjunctiva normal. HEENT: External appearance of nose and ears normal, oral cavity normal. NECK: JVD not raised; masses not palpable. HEART: First and second heart sounds are normal; no edema. LUNGS: Respiratory rate normal; clear to auscultation. ABDOMEN: Soft, nontender, liver spleen not palpable, no masses palpable. PSYCH: Alert and oriented x3; mood and affect normal. INVESTIGATIONS, reviewed in the clinical context: Potassium 3.4 creatinine 1.53 Previous testing White count 8.4 hemoglobin 16 platelets 135 potassium 5 bun 71 creatinine 7.25 serum osmolality 308 Patient's creatinine back in August 2019 was 1.5 Assessment: -Acute kidney injury possibly combination of ATN and prerenal from patient having some diarrhea and patient also on medications to include an O'Munir, Lasix Zestril which have been held now.-Slow to respond -Acute severe diarrhea with no blood No fever no chills. No recent antibiotic exposure. We'll check ova and parasites and rule out C. diff.-improving -Persistent atrial fibrillation -Coronary artery disease per history of bypass and stents -Chronic congestive heart failure EF not known -Diabetes mellitus type 2 chronically on insulin, uncontrolled with hy poglycemia. -Hyperlipidemia -Hypotension from volume loss -Essential hypertension -Primary osteoarthritis -Chronic tinnitus of the right ear -Chronic diverticulosis -Hyperphosphatemia from acute kidney injury Plan: -Diet advanced to soft bland. Patient home dose of beta wesley be resumed tonight. Patient requesting his on insulin to be used. Keep him on 60 units tonight. Continue with IV fluids. Repeat labs tomorrow.
[2020-01-07 20:52] LABS: Glucose,Whole Blood 92 mg/dL (75-99)
[2020-01-07] MEDS: ATORVASTATIN 10 MG TAB PO SCH (20:53)
[2020-01-07] MEDS: GABAPENTIN 300 MG CAP PO SCH (20:54)
[2020-01-07] MEDS ORDERED: TOUJEO SQ SCH ×2 (21:00)
[2020-01-07] MEDS ORDERED: METOPROLOL SUCCINATE (ER) 100 MG TAB.ER.24H PO SCH (21:00)
[2020-01-07] MEDS ORDERED: MELATONIN 3 MG TABLET PO SCH (21:00)
[2020-01-08] MEDS: SODIUM CHLORIDE 0.45% 1,000 ML with SODIUM BICARB (1 MEQ/ML) 100 ML IV SCH ×2 (01:11)
[2020-01-08 02:24] LABS: Glucose,Whole Blood 93 mg/dL (75-99)
[2020-01-08 06:47] LABS: Potassium 3.9 mmol/L (3.5-5.1)
[2020-01-08 07:08] LABS: Glucose,Whole Blood 99 mg/dL (75-99)
[2020-01-08] MEDS: INSULIN ASPART (NovoLOG) 100 UNIT/ML VIAL SQ SCH (07:43)
[2020-01-08] MEDS: REPAGLINIDE 1 MG TAB PO SCH (08:07)
[2020-01-08] MEDS: CLOPIDOGREL 75 MG TAB PO SCH (08:12)
[2020-01-08] MEDS: CYANOCOBALAMIN 500 MCG TAB PO SCH (08:12)
[2020-01-08] MEDS: LOPERAMIDE 2 MG CAP PO PRN (08:13)
[2020-01-08] MEDS: EZETIMIBE 10 MG TAB PO SCH (08:13)
[2020-01-08] MEDS: PSYLLIUM HUSK 100% 6 GM PACKET PO SCH (08:14)
[2020-01-08] MEDS: prednisoLONE ACETATE 1% OPHTH DROPS 5 ML BTL RIGHT EYE SCH (08:20)
[2020-01-08] MEDS: OFLOXACIN 0.3% OPHTH DROPS 5 ML BOTTLE RIGHT EYE SCH (08:20)
[2020-01-08 08:38] VITALS: BP 149/74; PULSE 79; RESP 18; TEMP 98.7
[2020-01-08] MEDS ORDERED: ASCORBIC ACID 500 MG TAB PO SCH (09:00)
[2020-01-08] MEDS ORDERED: LORATADINE 10 MG TAB PO SCH (09:00)
[2020-01-08 09:23] VITALS: BMI 28.2
--- NOTE | 2020-01-08 12:22 | PN ---
PROGRESS NOTE Patient is seen for followup for acute kidney injury, mostly prerenal currently significantly improved. Serum creatinine has improved to 1.0 from initial creatinine of 7.2 on admission. Patient is maintained on IV fluids. He is feeling better, although the diarrhea still persists, but much improved than on admission. PHYSICAL EXAMINATION: On examination today, blood pressure was 149/74, heart rate 79 per minute, patient is afebrile. Examination shows patient is euvolemic. There is no evidence of edema in the lower extremities. Abdomen is soft, nontender. 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 LABS: Show sodium 139, potassium 3.9, chloride 105, CO2 is 29, BUN 20, serum creatinine 1.08. ASSESSMENT: 1. Acute kidney injury, prerenal currently significantly improved. The patient is advised to maintain adequate fluid intake post discharge. He will continue to hold off on the MADIE inhibitors for now, but if blood pressure is elevated, he can resume lower dose of MADIE inhibitors. 2. Volume depletion, now improved. 3. Non-gap metabolic acidosis associated with renal failure and diarrhea, now resolved. 4. Diarrhea, most likely viral gastroenteritis. Clostridium difficile toxin was negative. PLAN: Patient is stable for discharge from nephrology standpoint. He should monitor his blood pressure as outpatient. If his blood pressure is elevated, he can resume lower dose of MADIE inhibitors as outpatient. MMODL / IJN: [id number] /
--- NOTE | 2020-01-09 23:59 | P.DS ---
Providers Date of admission: 01/05/20 12:22 Expected date of discharge: 01/09/20 Attending physician: Hernandez Bradley Consults: 01/05/20 12:23 Consult Physician Routine Consulting Provider: Marline Vick Consult Reason/Comments: desiree Do you want consulting provider notified?: Yes Primary care physician: [facility] Course: Chief Complaint: Weak and tired History of presenting complaint: This is a pleasant 64-year-old patient of Dr. demarco. Chronic stable medical conditions include atrial flutter fibrillation, coronary artery disease with bypass and stent 2008, CHF, diabetes, hyperlipidemia, hypertension, primary osteoarthritis, chronic tinnitus in the right ear, diverticulosis and varicose veins. 4 days ago started having increasing frequent diarrhea every hour. No blood. Abdominal pain. No nausea vomiting. Denies any fever and chills. Continue The same. Patient started on Flagyl and Lomotil. Not much improvement. His family doctor informed him off of his kidney function for which getting what he needs to go to the ER. Patient is nearly been passing out, not able to keep some fluids down. Creatinine found to be was 7 in the ER. Admitted for the same. Started on IV fluids. Admitted with acute kidney injury possibly ATN prerenal, severe diarrhea. Stool came back negative for ova and parasites and C. diff. creatinine improved from 7.25 down to 1.08-diarrhea improved Today-the well. Discussed with the patient. Cleared for discharge. Outside Plant Technician: Dr. Vick from nephrology Physical examination: VITAL SIGNS: 98.7, 79, 18, 149/74, 98% room air GENERAL: Sitting comfortable EYES: Pupils equal. Conjunctiva normal. HEENT: External appearance of nose and ears normal, oral cavity normal. NECK: JVD not raised; masses not palpable. HEART: First and second heart sounds are normal; no edema. LUNGS: Respiratory rate normal; clear to auscultation. ABDOMEN: Soft, nontender, liver spleen not palpable, no masses palpable. PSYCH: Alert and oriented x3; mood and affect normal. INVESTIGATIONS, reviewed in the clinical context: Creatinine 1.08 Previous testing White count 8.4 hemoglobin 16 platelets 135 potassium 5 bun 71 creatinine 7.25 serum osmolality 308 Patient's creatinine back in August 2019 was 1.5 Assessment: -Acute kidney injury possibly combination of ATN and prerenal from patient having some diarrhea and patient also on medications to include Lasix Zestril- corrected -Acute severe diarrhea with no blood No fever no chills. No recent antibiotic exposure. .-improved -Persistent atrial fibrillation -Coronary artery disease per history of bypass and stents -Chronic congestive heart failure EF not known -Diabetes mellitus type 2 chronically on insulin, uncontrolled with hypoglycemi a. -Hyperlipidemia -Hypotension from volume loss -Essential hypertension -Primary osteoarthritis -Chronic tinnitus of the right ear -Chronic diverticulosis -Hyperphosphatemia from acute kidney injury Disposition: Home Labs: BMP-7 days Patient Condition at Discharge: Stable Plan - Discharge Summary Discharge Rx Participant: No New Discharge Prescriptions: New Psyllium Husk 100% [Metamucil Packet] 6 gm PO BID packet Acetaminophen Tab [Tylenol] 650 mg PO Q6HR PRN tab PRN Reason: Mild Pain Or Fever > 100.5 Continue Ezetimibe [Zetia] 10 mg PO DAILY Cholecalciferol [Vitamin D3 (25 Mcg = 1000 Iu)] 2,000 units PO DAILY Cyanocobalamin [Vitamin B-12] 500 mcg PO DAILY Metoprolol Succinate [Toprol XL] 200 mg PO HS Lisinopril [Zestril] 20 mg PO DAILY Fexofenadine HCl [Shila Allergy] 180 mg PO DAILY Ascorbic Acid [Vitamin C] 500 mg PO DAILY Clopidogrel [Plavix] 75 mg PO DAILY #30 tab Rivaroxaban [Xarelto] 15 mg PO AC-SUPPER Evolocumab [Repatha Sureclick] 140 mg SQ Q14D prednisoLONE ACETATE 1% OPHTH [Pred Forte 1%] 1 drops RIGHT EYE TID Repaglinide [Prandin] 1 mg PO AC-BID Ofloxacin 0.3% Ophth Soln [Ocuflox Ophth Soln] 1 drops RIGHT EYE TID Sumner-3 Acid Ethyl Esters [Lovaza] 2 gm PO BID Dulaglutide [Trulicity] 1.5 mg SQ TH Canagliflozin [Invokana] 300 mg PO DAILY Fluvastatin Sodium [Lescol Xl] 80 mg PO HS Diphenox-Atrop 2.5-0.025 mg [Lomotil] 2 tab PO QID PRN PRN Reason: Loose Stool Changed Gabapentin 600 mg PO BID #0 Insulin Glargine,Hum.rec.anlog [Toujeo Solostar] 60 units SQ HS #0 Discontinued Furosemide [Lasix] 40 mg PO DAILY@0600 metroNIDAZOLE [Flagyl] 250 mg PO TID Discharge Medication List Ezetimibe [Zetia] 10 mg PO DAILY 05/03/14 [History] Cholecalciferol [Vitamin D3 (25 Mcg = 1000 Iu)] 2,000 units PO DAILY 06/17/14 [History] Cyanocobalamin [Vitamin B-12] 500 mcg PO DAILY 12/08/14 [History] Fexofenadine HCl [Shila Allergy] 180 mg PO DAILY 05/21/16 [History] Lisinopril [Zestril] 20 mg PO DAILY 05/21/16 [History] Metoprolol Succinate [Toprol XL] 200 mg PO HS 05/21/16 [History] Ascorbic Acid [Vitamin C] 500 mg PO DAILY 10/05/17 [History] Clopidogrel [Plavix] 75 mg PO DAILY #30 tab 01/18/18 [Rx] Rivaroxaban [Xarelto] 15 mg PO AC-SUPPER 09/01/18 [History] Evolocumab [Repatha Sureclick] 140 mg SQ Q14D 10/10/18 [History] Canagliflozin [Invokana] 300 mg PO DAILY 01/05/20 [History] Diphenox-Atrop 2.5-0.025 mg [Lomotil] 2 tab PO QID PRN 01/05/20 [History] Dulaglutide [Trulicity] 1.5 mg SQ TH 01/05/20 [History] Fluvastatin Sodium [Lescol Xl] 80 mg PO HS 01/05/20 [History] Ofloxacin 0.3% Ophth Soln [Ocuflox Ophth Soln] 1 drops RIGHT EYE TID 01/05/20 [History] Sumner-3 Acid Ethyl Esters [Lovaza] 2 gm PO BID 01/05/20 [History] Repaglinide [Prandin] 1 mg PO AC-BID 01/05/20 [History] prednisoLONE ACETATE 1% OPHTH [Pred Forte 1%] 1 drops RIGHT EYE TID 01/05/20 [History] Acetaminophen Tab [Tylenol] 650 mg PO Q6HR PRN tab 01/08/20 [Rx] Gabapentin 600 mg PO BID #0 01/08/20 [Rx] Insulin Glargine,Hum.rec.anlog [Toujeo Solostar] 60 units SQ HS #0 01/08/20 [Rx] Psyllium Husk 100% [Metamucil Packet] 6 gm PO BID packet 01/08/20 [Rx] Follow up Appointment(s)/Referral(s): Marline Vick MD [STAFF PHYSICIAN] - 2 Weeks (please call office to set up appt. time and date.) Naman Prasad MD [Primary Care Provider] - 01/11/20 2:00 pm Patient Instructions/Handouts: Diverticulosis (DC), Acute Kidney Injury (DC), Diverticulosis Diet (GEN), Return to Work Instructions (DC) Activity/Diet/Wound Care/Special Instructions: bmp - 7 days Discharge Disposition: HOME SELF-CARE
== END 2020-01-08 13:30 | disposition home or self-care (01) | DRG 683 ==
LOC: EC 09:40 → 5NMEDONC 12:22
PROVIDERS: ADMIT Hospitalist; ATTEND Hospitalist
DX: N17.0 Acute kidney failure with tubular necrosis (principal); I48.19 Other persistent atrial fibrillation; E87.2 Acidosis; I48.92 Unspecified atrial flutter; A08.4 Viral intestinal infection, unspecified; E11.649 Type 2 diabetes mellitus with hypoglycemia without coma; E78.5 Hyperlipidemia, unspecified; E83.39 Other disorders of phosphorus metabolism; E86.0 Dehydration; E86.1 Hypovolemia; H93.11 Tinnitus, right ear; I11.0 Hypertensive heart disease with heart failure; I25.10 Atherosclerotic heart disease of native coronary artery without angina pectoris; I25.2 Old myocardial infarction; I50.9 Heart failure, unspecified; I83.90 Asymptomatic varicose veins of unspecified lower extremity; K57.90 Diverticulosis of intestine, part unspecified, without perforation or abscess without bleeding; M19.91 Primary osteoarthritis, unspecified site; Z79.01 Long term (current) use of anticoagulants; Z11.59 Encounter for screening for other viral diseases; Z79.02 Long term (current) use of antithrombotics/antiplatelets; Z79.84 Long term (current) use of oral hypoglycemic drugs; Z79.899 Other long term (current) drug therapy; Z80.6 Family history of leukemia; Z95.1 Presence of aortocoronary bypass graft; Z95.5 Presence of coronary angioplasty implant and graft; Z95.810 Presence of automatic (implantable) cardiac defibrillator; Z90.49 Acquired absence of other specified parts of digestive tract; Z80.3 Family history of malignant neoplasm of breast; Z80.8 Family history of malignant neoplasm of other organs or systems; I95.9 Hypotension, unspecified; Z98.49 Cataract extraction status, unspecified eye
CPT/HCPCS: 36415; 76770; 80048; 80053; 80320; 81001; 83605; 83930; 84100; 85025; 85027; 87324; 87328; 87329; 96361; 96365; 96376; 99284

== ENCOUNTER → 2020-04-18 | Outpatient (CLI) | payer BC ==
[2020-04-18 16:45] LABS: HCT 45.1 % (39.0-53.0); HGB 14.8 gm/dL (13.0-17.5); MCH 32.7 pg (25.0-35.0); MCHC 32.8 g/dL (31.0-37.0); MCV 99.8 fL (80.0-100.0); Mean Platelet Volume 8.1; Platelet Count 117 k/uL (150-450); RBC 4.52 m/uL (4.30-5.90); RDW 13.7 % (11.5-15.5); WBC 8.4 k/uL (3.8-10.6)
== END | disposition home or self-care (01) ==
LOC: LABPAT 16:19
PROVIDERS: ATTEND Internal Medicine Clinical Cardiac Electrophysiology
DX: Z01.818 Encounter for other preprocedural examination (principal); I48.11 Longstanding persistent atrial fibrillation
CPT/HCPCS: 36415; 80048; 83735; 84443; 85027

== ENCOUNTER → 2020-04-18 | Outpatient (CLI) | payer BC ==
[2020-04-19 01:18] LABS: African American GFR (CKD) 48.7 (60.0-200.0); Anion Gap 10.6 mmol/L (4.00-12.00); BUN/Creat Ratio 21.18 Ratio (12.00-20.00); Calcium 9.1 mg/dL (8.7-10.3); Carbon Dioxide 24.4 mmol/L (21.6-31.8); Magnesium 2.2 mg/dL (1.5-2.4); Potassium 4.5 mmol/L (3.5-5.5)
== END | disposition home or self-care (01) ==
LOC: LABWHC1 16:10
PROVIDERS: ATTEND Physician Assistant
DX: Z00.00 Encounter for general adult medical examination without abnormal findings (principal); E11.42 Type 2 diabetes mellitus with diabetic polyneuropathy; Z13.220 Encounter for screening for lipoid disorders; R53.83 Other fatigue; Z12.5 Encounter for screening for malignant neoplasm of prostate; E11.40 Type 2 diabetes mellitus with diabetic neuropathy, unspecified; I50.9 Heart failure, unspecified
CPT/HCPCS: 36415; 80048; 83735

== ENCOUNTER 2020-04-25 06:49 | Day surgery (SDC) | payer BC ==
[2020-04-20 10:48] VITALS: BMI 27.9
[~2020-04-25 06:49] MED LIST changes: -ALPRAZolam 0.25 MG TAB PO PRN; -ALPRAZolam 0.5 MG TAB PO PRN; -ASPIRIN 325 MG TAB PO STA; -NITROGLYCERIN SL TABS 0.4 MG TAB SUBLINGUAL PRN; +SODIUM CHLORIDE 0.9% 1,000 ML IV SCH; -SODIUM CHLORIDE 0.9% 1,000 ML in EMPTY BAG 1 BAG IV ONE
[2020-04-25] MEDS ORDERED: SODIUM CHLORIDE 0.9% 500 ML 500 ML IV ONE (07:08)
[2020-04-25 07:14] LABS: Glucose,Whole Blood 143 mg/dL (75-99)
[2020-04-25 07:23] VITALS: RESP 16; TEMP 98.1
[2020-04-25] MEDS ORDERED: PROPOFOL 10 MG/ML 20 ML VIAL IV ONE (07:52)
--- NOTE | 2020-04-25 08:17 | P.EPPROC ---
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
--- NOTE | 2020-04-25 08:18 | P.PRLE ---
RE: Samuel James Dear Naman He underwent electrical cardioversion for atrial fibrillation successfully Atorvastatin to continue his anticoagulation and all his current medications as before Thank you for entrusting me with the care of the patient Warm regards Sincerely Luis Morton
[2020-04-25 09:28] VITALS: BP 126/61; PULSE 59
== END 2020-04-25 09:28 | disposition home or self-care (01) ==
LOC: CATHEP 06:49
PROVIDERS: ATTEND Internal Medicine Clinical Cardiac Electrophysiology
DX: I48.11 Longstanding persistent atrial fibrillation (principal); I25.5 Ischemic cardiomyopathy; I13.0 Hypertensive heart and chronic kidney disease with heart failure and stage 1 through stage 4 chronic kidney disease, or unspecified chronic kidney disease; E11.22 Type 2 diabetes mellitus with diabetic chronic kidney disease; I50.22 Chronic systolic (congestive) heart failure; I65.23 Occlusion and stenosis of bilateral carotid arteries; I25.10 Atherosclerotic heart disease of native coronary artery without angina pectoris; I47.2 Ventricular tachycardia; E78.5 Hyperlipidemia, unspecified; E11.40 Type 2 diabetes mellitus with diabetic neuropathy, unspecified; Z95.5 Presence of coronary angioplasty implant and graft; Z95.1 Presence of aortocoronary bypass graft; F17.210 Nicotine dependence, cigarettes, uncomplicated; Z79.4 Long term (current) use of insulin; Z79.899 Other long term (current) drug therapy; Z79.01 Long term (current) use of anticoagulants; Z79.02 Long term (current) use of antithrombotics/antiplatelets; Z88.8 Allergy status to other drugs, medicaments and biological substances; Z82.49 Family history of ischemic heart disease and other diseases of the circulatory system; Z91.018 Allergy to other foods; Z90.49 Acquired absence of other specified parts of digestive tract; Z98.890 Other specified postprocedural states; Z95.0 Presence of cardiac pacemaker
CPT/HCPCS: 92960; J2704

== ENCOUNTER → 2020-09-07 | Outpatient (CLI) | payer BC ==
[2020-09-07 23:55] LABS: HCT 44.1 % (39.6-50.0); HGB 14.6 g/dL (13.0-17.0); MCH 31.7 pg (27.0-32.0); MCHC 33.1 g/dL (32.0-37.0); MCV 95.7 fL (80.0-97.0); Platelet Count 124 X 10*3/uL (140-440); RBC 4.61 X 10*6/uL (4.40-5.60); RDW 14.6 % (11.5-14.5); WBC 7.84 X 10*3/uL (4.50-10.00)
[2020-09-08 05:11] LABS: African American GFR (CKD) 52.4 (60.0-200.0); Anion Gap 14.6 mmol/L (4.00-12.00); Carbon Dioxide 19.4 mmol/L (21.6-31.8); Non-African American GFR(CKD) 45.2 (60.0-200.0); Potassium 4.9 mmol/L (3.5-5.5)
== END | disposition home or self-care (01) ==
LOC: LABWHC1 15:41
PROVIDERS: ATTEND Internal Medicine Clinical Cardiac Electrophysiology
DX: Z01.812 Encounter for preprocedural laboratory examination (principal); I48.19 Other persistent atrial fibrillation
CPT/HCPCS: 36415; 80051; 82565; 84520; 85027

== ENCOUNTER 2020-09-15 06:16 | Observation (INO) | payer BC ==
[2020-09-12 12:15] VITALS: BMI 28.0
[~2020-09-15 06:16] MED LIST changes: +LACTATED RINGERS 1,000 ML IV SCH; -SODIUM CHLORIDE 0.9% 1,000 ML IV SCH
[2020-09-15 06:50] LABS: Glucose,Whole Blood 157 mg/dL (75-99)
[2020-09-15] MEDS ORDERED: SODIUM CHLORIDE 0.9% 1,000 ML IV ONE (07:02)
[2020-09-15] MEDS ORDERED: SODIUM CHLORIDE 0.9% 1,000 ML IV SCH (07:15)
[2020-09-15] MEDS ORDERED: LIDOCAINE 1% INJ 10MG/ML (20 ML MDV) ONE (07:22)
[2020-09-15] MEDS ORDERED: HEPARIN SODIUM 1,000 UN/ML (10ML VL) ONE (07:22)
[2020-09-15] MEDS ORDERED: ONDANSETRON 4 MG/2 ML VIAL ONE (07:25)
[2020-09-15] MEDS ORDERED: GLYCOPYRROLATE 0.2 MG/ML 2 ML VIAL ONE (07:25)
[2020-09-15] MEDS ORDERED: NEOSTIGMINE 1 MG/ML 10 ML VIAL ONE (07:25)
[2020-09-15] MEDS ORDERED: MIDAZOLAM 2 MG/2 ML VIAL ONE (07:25)
[2020-09-15] MEDS ORDERED: PROTAMINE SULFATE 10 MG/ML 5 ML VIAL IV ONE ×2 (07:25→12:33)
[2020-09-15] MEDS ORDERED: ROCURONIUM 10 MG/ML (5 ML VIAL) IV ONE (07:25)
[2020-09-15] MEDS ORDERED: FUROSEMIDE 10 MG/ML 2 ML VIAL ONE (07:25)
[2020-09-15] MEDS ORDERED: PROPOFOL 10 MG/ML 20 ML VIAL IV ONE (07:25)
[2020-09-15] MEDS ORDERED: PHENYLEPHRINE-0.9% NACL SYG 1,000 MCG/10 ML SYRINGE ONE (07:25)
[2020-09-15] MEDS ORDERED: SUCCINYLCHOLINE CHLORIDE 100 MG/5 ML SYR IV ONE (07:25)
[2020-09-15] MEDS ORDERED: HEPARIN SODIUM,PORCINE 10,000 UNIT/ML 1 ML VIAL ONE (07:25)
[2020-09-15] MEDS ORDERED: fentaNYL (PF) 50 MCG/ML 2 ML AMP ONE (07:25)
[2020-09-15] MEDS ORDERED: LIDOCAINE 1% INJ 10MG/ML (20 ML MDV) SQ ONE (08:13)
[2020-09-15] MEDS ORDERED: HEPARIN SOD,PORK IN 0.45% NACL 25,000 UNIT in 0.45% NACL 1 250ML.BAG IV ONE (08:22)
[2020-09-15] MEDS ORDERED: HEPARIN SODIUM (1,000 UNIT/ML) 1,000 UNIT in SODIUM CHLORIDE 0.9% 1,000 ML IRRIGATION ONE ×4 (12:35)
[2020-09-15 12:55] LABS: Albumin 3.9 g/dL (3.5-5.0); Potassium 5.4 mmol/L (3.5-5.1); Total Bilirubin 0.6 mg/dL (0.2-1.3); Total Protein 6.2 g/dL (6.3-8.2)
[2020-09-15] MEDS ORDERED: FUROSEMIDE 10 MG/ML 4 ML VIAL ONE (12:58)
[2020-09-15] MEDS ORDERED: FUROSEMIDE 10 MG/ML 4 ML VIAL IV ONE (13:00)
--- NOTE | 2020-09-15 13:30 | P.PN ---
Progress Note - Text Diagnosis Symptomatic persistent atrial fibrillation Congestive heart failure class III, patient complains of orthopnea and shortness of breath with minimal activity Severe LV dysfunction Ischemic cardiomyopathy Status post dual-chamber ICD Mild hyperkalemia Type 2 diabetes Intolerance to statins and coronary artery disease status post coronary stenting and coronary artery bypass grafting Dofetilide had to be discontinued in the past Procedures performed Patient underwent A. fib ablation RA pressure 20/10/15 mmHg LA pressure 37/2/23 mmHg 3-D electro-anatomic mapping was performed Pulmonary veins were completely isolated There appeared to be In the roof line and linear ablation in the roof was performed Linear ablation was performed in the mitral isthmus for mitral reentry Septal ablation was performed in the left atrium, wide [place] and then connected to the isolated right-sided veins A rapid atrial tachycardia was noted in the distal Fei sinus poles Epicardial ablation in the coronary sinus was performed Patient remained in atrial fibrillation Electrical cardioversion was performed successfully Plan Increase Xarelto to 20 mg by mouth daily for one month and down to 15 mg by mouth daily Stop aspirin Continue Plavix Stop lisinopril and start ENTRESTO Follow BMP
--- NOTE | 2020-09-15 13:34 | P.HPCAR ---
History of Present Illness This is Dr. Morton dictating an H/P on this patient The patient was interviewed and examined IMPRESSION / ASSESSMENT: Persistent symptomatic atrial fibrillation despite adequate rate control Congestive heart failure class III with orthopnea shortness of breath with minimal activity him a tiredness and fatigue Ischemic cardio myopathy, severe LV dysfunction, status post dual-chamber ICD CAD status post Fei stenting, status post coronary bypass grafting Statin intolerance, Lyndseyra Wallace Chronic kidney disease GFR about 45 Type 2 diabetes PLAN: A. fib ablation Initiation of ENTRESTO,. Lisinopril HPI Patient complains of being tired and fatigued. He is also short of breath lying flat. He short of breath with minimal activity No lower extremity edema He denies any chest discomfort no dizziness lightheadedness He denies any fever chills cough expectoration ROS: No fever chills or rigors, no cough, phlegm or expectoration, no nausea, vomiting or diarrhea, no hematuria, dysuria, no musculoskeletal complaints, no strokes or seizures, no skin lesions. EXAMINATION: 146/94 and his mercury pulse rate in the 70s afebrile 98.1F Don't JVD No lower extremity edema Heart sounds are normal no murmurs or gallops or rub Breath sounds are clear no rhonchi no crackles REVIEW OF LABS, ECG & MEDICAL DATA Sodium 138 potassium 5.4, BUN 32 and creatinine 1.63, GFR 44 AST 46 and ALT 41 TSH pending Physical Exam Vitals: Vital Signs Temp Pulse Resp BP Pulse Ox 09/15/20 06:59 98.1 F 75 18 146/94 97 Intake and Output 09/14/20 09/15/20 09/15/20 22:59 06:59 14:59 Intake Total 1770 Output Total 550 Balance 1220 Intake: IV 1770 Output: Urine 550 Past Medical History Past Medical History: Diabetes Mellitus, Hyperlipidemia, Myocardial Infarction (PA), Osteoarthritis (OA) Additional Past Medical History / Comment(s): tinnitis R ear, diverticulosis, see Dr Morton H&P, varicose veins, SOB when laying down, episode "last year had diarrhea with kidneys almost shut down", Last Myocardial Infarction Date:: 1993 History of Any Multi-Drug Resistant Organisms: None Reported Past Surgical History: AICD, Appendectomy, Cardiac Ablation, Cholecystectomy, Coronary Bypass/CABG, Ear Surgery, Heart Catheterization, Heart Catheterization With Stent, Pacemaker Additional Past Surgical History / Comment(s): 2008 CABG -4 vessel, cardioversions x 3, cardiac ablation x 2 , R ear surgery, 3 cardiac stents, antoni cataract surgery (then 3 additional surgeries rt eye) Past Anesthesia/Blood Transfusion Reactions: Previous Problems w/ Anesthesia Additional Past Anesthesia/Blood Transfusion Reaction / Comment(s): was awake during a procedure-"did not get enough anesthesia" Date of Last Stent Placement:: 05/07/18 Type of Cardiac Device: Biventricular Pacemaker, AICD Device Placement Date:: 2007? Smoking Status: Former smoker - Past Family History Brother(s) Family Medical History: Cancer Additional Family Medical History / Comment(s): leukemia Father Additional Family Medical History / Comment(s): Father has a pacer and is 84 yrs old. Mother Family Medical History: Cancer Additional Family Medical History / Comment(s): breast/brain Physical Examination Vital Signs Temp Pulse Resp BP Pulse Ox 09/15/20 06:59 98.1 F 75 18 146/94 97 Intake and Output 09/14/20 09/15/20 09/15/20 22:59 06:59 14:59 Intake Total 1770 Output Total 550 Balance 1220 Intake: IV 1770 Output: Urine 550 Results 09/15/20 12:30 Cardiac Enzymes 09/15/20 Range/Units 12:30 AST 46 (17-59) U/L Comprehensive Metabolic Panel 09/15/20 Range/Units 12:30 Sodium 138 (137-145) mmol/L Potassium 5.4 H (3.5-5.1) mmol/L Chloride 108 H (98-107) mmol/L Carbon Dioxide 23 (22-30) mmol/L BUN 32 H (9-20) mg/dL Creatinine 1.63 H (0.66-1.25) mg/dL Glucose 121 H (74-99) mg/dL Calcium 8.0 L (8.4-10.2) mg/dL AST 46 (17-59) U/L ALT 41 (4-49) U/L Alkaline Phosphatase 39 (38-126) U/L Total Protein 6.2 L (6.3-8.2) g/dL Albumin 3.9 (3.5-5.0) g/dL Current Medications Generic Name Dose Route Start Last Admin Trade Name Freq PRN Reason Stop Dose Admin Clopidogrel Bisulfate 75 mg 09/16/20 09:00 Clopidogrel 75 Mg Tab PO 10/16/20 09:01 DAILY TERRY Ezetimibe 10 mg 09/16/20 09:00 Ezetimibe 10 Mg Tab PO 10/16/20 09:01 DAILY TERRY Furosemide 40 mg 09/16/20 09:00 Furosemide 40 Mg Tab PO 10/16/20 09:01 DAILY [facility] Non-Formulary Medication 300 mg 09/16/20 09:00 Canagliflozin [Invokana] PO 10/16/20 09:01 DAILY [facility] Non-Formulary Medication 140 mg 09/15/20 13:15 Evolocumab [Repatha Sureclick] SQ 10/15/20 13:16 Q14D TERRY Non-Formulary Medication 1.5 mg 09/15/20 13:15 Dulaglutide [Trulicity] SQ 10/15/20 13:16 TH [facility] Non-Formulary Medication 80 units 09/15/20 21:00 Insulin Glargine,Hum.Rec.Anlog [Toujeo Solostar] SQ 10/15/20 21:01 HS [facility] Non-Formulary Medication 200 mg 09/15/20 21:00 Metoprolol Succinate [Toprol Xl] PO 10/15/20 21:01 HS [facility] Repaglinide 1 mg 09/15/20 17:30 Repaglinide 1 Mg Tab PO 10/15/20 17:31 AC-SUPPER [facility] Rivaroxaban 20 mg 09/15/20 17:30 Rivaroxaban 20 Mg Tab PO 10/15/20 17:31 W/SUPPER [facility] Intake and Output 09/14/20 09/15/20 09/15/20 22:59 06:59 14:59 Intake Total 1770 Output Total 550 Balance 1220 Intake: IV 1770 Output: Urine 550 09/15/20 12:30
[2020-09-15 13:40] LABS: Glucose,Whole Blood 148 mg/dL (75-99)
--- NOTE | 2020-09-15 13:50 | P.EPPROC ---
- EP Procedure Note Electrophysiology Procedure Note: Diagnosis Symptomatic persistent atrial fibrillation with underlying ischemic or myopathy and congestive heart failure class III Result A rapid somewhat organized atrial tachycardia 180 ms cycle length prominent in the mid coronary sinus poles No evidence for left atrial appendage thrombus on intracardiac echo Mildly increased left atrial size on intracardiac echo but increased right atrial and particularly left atrial intracardiac pressures. Mean left atrial pressure 23 mmHg Completely isolated only veins from prior ablation Gap In the left atrial roof, status post linear ablation in the left atrial roof Linear ablation mitral isthmus Linear ablation septum of the left atrium along complex fractionated electrograms Linear ablation within the coronary sinus Mild lengthening of the cycle length to 200 ms, patient underwent electrocardioversion at the end of the procedure Increased RA and LA intracardiac pressures Details of the procedure Patient was brought to the EP lab in a fasting state. Written informed consent was obtained prior to the procedure. Esophageal probe placed for temperature monitoring [employer] dual-chamber ICD interrogated and reprogrammed. ICD programmed to VVI mode at 50 PPM, tachycardia therapies turned off At the end of the procedure he was reprogrammed to DDDR 50-1 30 bpm, tachycardia therapies were turned on Venous sheaths were placed in the right left femoral veins. His venous pressures were quite evident. Cath was placed in the coronary sinus, later in the His bundle area and in the right atrium Intracardiac echo catheter placed No pericardial effusion, no intracardiac mass or thrombus in the left atrial appendage stump Right left transseptal catheterization performed Elevated RA and LA pressure is noted RA pressure 20/10/15 mmHg LA pressure is 37/2/23 mmHg In the end of the procedure when he was in sinus rhythm, AH interval 125 ms and HV interval 44 ms Transseptal catheterization was performed under fluoroscopic guidance with intracardiac echo guidance Pentaray cath was placed in the left atrium 3-D electro-anatomic mapping of the left atrium was performed All 4 pulmonary veins were noted to be completely isolated from his prior ablation Somewhat irregular tachycardia was noted from the coronary sinus poles, mid coronary sinus poles cycle length 180 ms A gap was noted in the roof between the antral level ablations of the superior veins Linear ablation was performed across the roof High voltage is noted in the mitral isthmus. Linear ablation was performed in the mitral isthmus Linear ablation was performed in the range between the left atrial appendage and left-sided veins Linear ablation was performed along complex fractionated electrograms just posterior to the transseptal site. This line was then connected to the right- sided veins Patient remained in an atrial tachycardia Catheter was then placed in the coronary sinus and linear ablation was performed in the coronary sinus Mild lengthening of cycle length noted to 200 ms Successful electrical cardioversion performed to sinus rhythm, 360 J biphasic shock The coronary sinus body lesion set was further completed in sinus rhythm All catheters were removed at the end of the procedure. Dual-chamber ICD reprogrammed Hemostasis achieved
[2020-09-15] MEDS: HYDROcodone/APAP 5-325MG 1 EACH TAB PO PRN (15:10)
[2020-09-15] MEDS ORDERED: ACETAMINOPHEN TAB 325 MG TAB PO PRN (15:46)
[2020-09-15] MEDS ORDERED: ACETAMINOPHEN IV (For NPO) 1,000 MG in EMPTY BAG 1 BAG IVPB ONE (15:46)
[2020-09-15 17:06] LABS: Glucose,Whole Blood 182 mg/dL (75-99)
[2020-09-15] MEDS ORDERED: ONDANSETRON 4 MG/2 ML VIAL IVP PRN (17:21)
[2020-09-15] MEDS ORDERED: REPAGLINIDE 1 MG TAB PO SCH (17:30)
[2020-09-15] MEDS ORDERED: RIVAROXABAN 20 MG TAB PO SCH (17:30)
[2020-09-15 20:33] LABS: Glucose,Whole Blood 267 mg/dL (75-99)
[2020-09-15] MEDS ORDERED: INSULIN DETEMIR (LEVEMIR) 100 UNIT/ML SYR SQ SCH (21:00)
[2020-09-15] MEDS ORDERED: METOPROLOL SUCCINATE (ER) 100 MG TAB.ER.24H PO SCH (21:00)
[2020-09-15 23:37] LABS: Calcium 8.1 mg/dL (8.4-10.2); Potassium 5.7 mmol/L (3.5-5.1)
[2020-09-16] MEDS: HYDROcodone/APAP 5-325MG 1 EACH TAB PO PRN (02:48)
[2020-09-16 06:40] LABS: Glucose,Whole Blood 157 mg/dL (75-99)
[2020-09-16 08:51] VITALS: RESP 16; TEMP 97.4
--- NOTE | 2020-09-16 08:56 | DS ---
DISCHARGE SUMMARY Samuel James is a 65-year-old male patient with CAD, coronary artery bypass grafting, persistent symptomatic atrial fibrillation, severe congestive heart failure class 3. Yesterday he underwent extensive atrial fibrillation ablation. Please see details of the atrial fibrillation ablation in my separate note. Today, he seems to be doing well. He is lying comfortably in bed. Urinary catheter is out, but he has not been able to go to the bathroom this morning. He denies any chest discomfort. No sore throat. No orthopnea or PND. He did have oozing from the groin yesterday and last night, but this morning he has no hematoma, no swelling, minimal tenderness in both groins. He does have elevated left-sided pressures in the mid 30s and elevated right-sided pressures in the mid 20s. PHYSICAL EXAMINATION: On examination, his blood pressure is 125/72 mmHg, heart rate is in the 60s. Head and neck examination is normal. No JVD. No lower extremity edema. Abdomen is soft. Lungs are clear on auscultation. No rhonchi, no crackles. LABS: Labs are reviewed this morning. Sodium 133, potassium 5.7, yesterday it was 5.4. He does have a tendency for hyperkalemia. BUN is 79, creatinine is 1.7 and GFR is in the mid 40s. His TSH is normal at 1.79. IMPRESSION: 1. Coronary artery disease, status post coronary stenting, status post coronary artery bypass grafting. 2. Severe ischemic cardiomyopathy. 3. Severe congestive heart failure systolic class 3. 4. Persistent symptomatic atrial fibrillation. 5. Symptoms of orthopnea and shortness of breath with minimal activity, tiredness and fatigue. 6. Tendency for hyperkalemia. 7. Type 2 diabetes. 8. Chronic kidney disease stage 3. PLAN: 1. He is in sinus rhythm at this time. If he has recurrence of atrial fibrillation, I may have to use amiodarone now. I would like him to take Xarelto 20 mg p.o. daily for a month and then drop down back to his usual dose of 15 mg p.o. daily. 2. Aspirin can be discontinued. 3. Plavix must continue. 4. I am also prescribing Entresto because of his congestive heart failure severity despite guideline-directed medical treatment. I want to switch him to Entresto after holding lisinopril for 2-3 days. I have given the script today and hopefully this can get approved. The case planner in the hospital will work on this. If he does get Entresto then he will start it on Saturday after holding lisinopril over the weekend. Otherwise, we will have to work on this as an outpatient, but he is definitely a candidate for Entresto now. 5. He does have a tendency for hyperkalemia and his potassium runs in the mid 5s. He may need potassium lowering agents in the future. 6. He will continue metoprolol succinate. 7. His dual-chamber ICD was reprogrammed yesterday. His 12-lead EKG shows an atrial paced rhythm with right bundle branch block pattern, QRS width of 120 milliseconds, and frequent PVCs. He had a run of slow nonsustained ventricular tachycardia yesterday and last night, although it is not clear whether if this was ventricular pacing or just slow VT. I have used dofetilide on him in the past, but this was discontinued. He is not a candidate for sotalol on account of his renal function and therefore I may have to use amiodarone if needed in the future for recurrence of atrial fibrillation and or ventricular tachycardia. MMODL / IJN: [id number] /
[2020-09-16] MEDS ORDERED: FUROSEMIDE 40 MG TAB PO SCH (09:00)
[2020-09-16] MEDS ORDERED: EZETIMIBE 10 MG TAB PO SCH (09:00)
[2020-09-16] MEDS ORDERED: CLOPIDOGREL 75 MG TAB PO SCH (09:00)
[2020-09-16 12:10] LABS: Glucose,Whole Blood 243 mg/dL (75-99)
[2020-09-16 15:48] VITALS: BP 154/72; PULSE 58
== END 2020-09-16 17:52 | disposition home or self-care (01) ==
LOC: CATHEP 06:16 → 3SCARD 12:30 → CATHEP 09-16 12:32
PROVIDERS: ADMIT Internal Medicine Clinical Cardiac Electrophysiology; ATTEND Internal Medicine Clinical Cardiac Electrophysiology
DX: I48.19 Other persistent atrial fibrillation (principal); I13.0 Hypertensive heart and chronic kidney disease with heart failure and stage 1 through stage 4 chronic kidney disease, or unspecified chronic kidney disease; I50.22 Chronic systolic (congestive) heart failure; I25.10 Atherosclerotic heart disease of native coronary artery without angina pectoris; I25.5 Ischemic cardiomyopathy; E11.22 Type 2 diabetes mellitus with diabetic chronic kidney disease; N18.30 Chronic kidney disease, stage 3 unspecified; E78.5 Hyperlipidemia, unspecified; I25.2 Old myocardial infarction; M19.90 Unspecified osteoarthritis, unspecified site; E87.5 Hyperkalemia; I45.10 Unspecified right bundle-branch block; I47.2 Ventricular tachycardia; Z95.5 Presence of coronary angioplasty implant and graft; Z95.1 Presence of aortocoronary bypass graft; Z95.810 Presence of automatic (implantable) cardiac defibrillator; Z90.49 Acquired absence of other specified parts of digestive tract; Z87.19 Personal history of other diseases of the digestive system; Z87.891 Personal history of nicotine dependence; Z79.899 Other long term (current) drug therapy; Z79.4 Long term (current) use of insulin; Z79.82 Long term (current) use of aspirin; Z79.01 Long term (current) use of anticoagulants; Z82.49 Family history of ischemic heart disease and other diseases of the circulatory system; Z80.6 Family history of leukemia; Z80.3 Family history of malignant neoplasm of breast; Z80.8 Family history of malignant neoplasm of other organs or systems
CPT/HCPCS: 93005; 85347; 92960; 93662; 93613; 93656; 80053; 80048; 83735; 84443; G0378; C1769 ×5; C1894; C1730; C1731; C1759; C1893; C1732; J2250; J2720; J1644 ×3; J1940 ×2; J2710; J0690; J2405; J2001; J3010; J0131; J2370; J0330; J2704

== ENCOUNTER → 2020-10-28 | Outpatient (CLI) | payer BC ==
[2020-10-28 16:51] LABS: Appearance,Urine Clear (Clear); Bilirubin,Urine Negative (Negative); Blood,Urine Negative (Negative); Color,Urine Light Yellow; Glucose,Urine (UA) 4+ (Negative); Ketones,Urine Negative (Negative); Leukocyte Esterase,Urine Negative (Negative); Nitrite,Urine Negative (Negative); Protein,Urine Negative (Negative); Specific Gravity,Urine 1.018 (1.001-1.035); Urobilinogen,Urine <2.0 mg/dL (<2.0)
[2020-10-29 00:07] LABS: Basophils % (A) 1.2 %; Eosinophils # (A) 0.49 X 10*3/uL (0.04-0.35); HCT 45.6 % (39.6-50.0); HGB 14.9 g/dL (13.0-17.0); Lymphocytes # (A) 2.16 X 10*3/uL (0.90-5.00); Lymphocytes % (A) 26.3 %; MCH 31.4 pg (27.0-32.0); MCHC 32.7 g/dL (32.0-37.0); MCV 96.2 fL (80.0-97.0); Mean Platelet Volume 10.9 fL (9.5-12.2); Monocytes # (A) 0.74 X 10*3/uL (0.20-1.00); Neutrophils # (A) 4.69 X 10*3/uL (1.80-7.70); Neutrophils % (A) 57.1 %; Platelet Count 122 X 10*3/uL (140-440); RBC 4.74 X 10*6/uL (4.40-5.60); WBC 8.21 X 10*3/uL (4.50-10.00)
[2020-10-29 04:22] LABS: African American GFR (CKD) 52.4 (60.0-200.0); Albumin 4.8 g/dL (3.80-4.90); Albumin/Globulin Ratio 2.18 (1.60-3.17); Anion Gap 10.8 mmol/L (4.00-12.00); Calcium 8.6 mg/dL (8.7-10.3); Carbon Dioxide 24.2 mmol/L (21.6-31.8); Globulin 2.2 g/dL (1.6-3.3); Non-African American GFR(CKD) 45.2 (60.0-200.0); Phosphorus 4.7 mg/dL (2.4-5.1); Potassium 4.7 mmol/L (3.5-5.5); Total Bilirubin 0.6 mg/dL (0.3-1.2)
== END | disposition home or self-care (01) ==
LOC: LABWHC1 16:14
PROVIDERS: ATTEND Family Medicine
DX: R94.4 Abnormal results of kidney function studies (principal)
CPT/HCPCS: 36415; 80053; 81003; 84100; 85025

== ENCOUNTER → 2020-12-29 | Outpatient (CLI) | payer BC ==
[2020-12-29 16:40] LABS: Appearance,Urine Clear (Clear); Bilirubin,Urine Negative (Negative); Blood,Urine Negative (Negative); Color,Urine Light Yellow; Glucose,Urine (UA) 4+ (Negative); Ketones,Urine Negative (Negative); Leukocyte Esterase,Urine Negative (Negative); Nitrite,Urine Negative (Negative); PH, Urine 5.5 (5.0-8.0); Protein,Urine Negative (Negative); Specific Gravity,Urine 1.022 (1.001-1.035); Urobilinogen,Urine <2.0 mg/dL (<2.0)
[2020-12-29 23:00] LABS: HCT 41.9 % (39.6-50.0); HGB 13.8 g/dL (13.0-17.0); MCH 32.3 pg (27.0-32.0); MCHC 32.9 g/dL (32.0-37.0); MCV 98.1 fL (80.0-97.0); Mean Platelet Volume 10.6 fL (9.5-12.2); Platelet Count 112 X 10*3/uL (140-440); RBC 4.27 X 10*6/uL (4.40-5.60); RDW 14.3 % (11.5-14.5); WBC 6.93 X 10*3/uL (4.50-10.00)
[2020-12-30 01:40] LABS: Urine Creatinine 68.8 mg/dL
[2020-12-30 02:06] LABS: % Iron Saturation 21.49 (15.00-50.00); African American GFR (CKD) 67.3 (60.0-200.0); Albumin 4.7 g/dL (3.80-4.90); Albumin/Globulin Ratio 2.47 (1.60-3.17); BUN/Creat Ratio 17.69 Ratio (12.00-20.00); Calcium 8.5 mg/dL (8.7-10.3); Globulin 1.9 g/dL (1.6-3.3); Magnesium 2.3 mg/dL (1.5-2.4); Non-African American GFR(CKD) 58.1 (60.0-200.0); Phosphorus 3.5 mg/dL (2.4-5.1); Potassium 4.1 mmol/L (3.5-5.5); Total Bilirubin 0.6 mg/dL (0.2-1.2); Total Protein 6.6 g/dL (6.2-8.2); Uric Acid 7.7 mg/dL (3.7-8.7)
[2020-12-30 02:14] LABS: Ferritin 95.3 ng/mL (22.0-322.0)
== END | disposition home or self-care (01) ==
LOC: LABWHC1 15:15
PROVIDERS: ATTEND Internal Medicine
DX: N39.0 Urinary tract infection, site not specified (principal); N18.9 Chronic kidney disease, unspecified; N25.81 Secondary hyperparathyroidism of renal origin; E55.9 Vitamin D deficiency, unspecified; D64.9 Anemia, unspecified; R80.9 Proteinuria, unspecified; M10.9 Gout, unspecified
CPT/HCPCS: 36415; 80053; 81003; 82043; 82306; 82570; 82728; 83540; 83550; 83735; 83970; 84100; 84550; 85027

== ENCOUNTER → 2021-01-03 | Outpatient (CLI) | payer BC | END | disposition home or self-care (01) | DX: R94.4 Abnormal results of kidney function studies (principal); R16.1 Splenomegaly, not elsewhere classified | CPT/HCPCS: 76770 ==

== ENCOUNTER → 2021-05-22 | Outpatient (CLI) | payer BC ==
[2021-05-22 12:47] LABS: HCT 46.3 % (39.0-53.0); MCH 32.1 pg (25.0-35.0); MCHC 32.4 g/dL (31.0-37.0); MCV 98.9 fL (80.0-100.0); Mean Platelet Volume 8.6; Platelet Count 111 k/uL (150-450); RBC 4.68 m/uL (4.30-5.90); RDW 13.9 % (11.5-15.5); WBC 7.6 k/uL (3.8-10.6)
[2021-05-22 13:08] LABS: Potassium 4.2 mmol/L (3.5-5.1)
== END | disposition home or self-care (01) ==
LOC: LABWHC1 10:59
PROVIDERS: ATTEND Internal Medicine Clinical Cardiac Electrophysiology
DX: Z01.812 Encounter for preprocedural laboratory examination (principal); I48.0 Paroxysmal atrial fibrillation
CPT/HCPCS: 36415; 80051; 82565; 84520; 85027

== ENCOUNTER 2021-06-15 05:51 | Day surgery (SDC) | payer BC ==
[2021-05-29 12:52] VITALS: BMI 29.7
[2021-06-15] MEDS ORDERED: SODIUM CHLORIDE 0.9% 1,000 ML IV SCH ×2 (06:03)
[2021-06-15] MEDS ORDERED: LACTATED RINGERS 1,000 ML IV SCH (06:03)
[2021-06-15 06:27] LABS: Glucose,Whole Blood 162 mg/dL (75-99)
[2021-06-15 06:33] VITALS: RESP 18; TEMP 98.3
[2021-06-15 06:46] LABS: Mean Platelet Volume 7.5; Platelet Count 119 k/uL (150-450)
[2021-06-15 06:55] LABS: African American GFR (CKD) 74 (>60 ml/min/1.73 sqM); Anion Gap 10 mmol/L; Blood Urea Nitrogen 25 mg/dL (9-20); Calcium 8.7 mg/dL (8.4-10.2); Carbon Dioxide 24 mmol/L (22-30); Chloride 105 mmol/L (98-107); Glucose 166 mg/dL (74-99); Non-African American GFR(CKD) 64 (>60 ml/min/1.73 sqM); Sodium 139 mmol/L (137-145)
[2021-06-15] MEDS ORDERED: LIDOCAINE 1% INJ 10MG/ML (20 ML MDV) ONE (07:30)
[2021-06-15] MEDS ORDERED: PROPOFOL 10 MG/ML 20 ML VIAL IV ONE (07:30)
[2021-06-15] MEDS ORDERED: MIDAZOLAM 2 MG/2 ML VIAL ONE (07:30)
[2021-06-15] MEDS ORDERED: IOPAMIDOL-370 50ML BTL INJ ONE (07:41)
--- NOTE | 2021-06-15 08:03 | P.EPPROC ---
- EP Procedure Note Electrophysiology Procedure Note: Final Diagnosis Symptomatic persistent atrial fibrillation, with a creatinine ranging from 1.2- 1.6 Ventricular tachycardia 196 beats a minute, successful ATP termination, single round Ischemic cardiomyopathy Status post dual-chamber [employer] ICD, functioning normally 11% RV pacing despite VIP more programming Patent left upper extremity veins including left axillary and subclavian veins as well as innominate vein Cinefluoroscopy of the leads do not reveal any fractures or breaks Successful electrical cardioversion with a 200 J biphasic shock Postoperative plan Watch for further episodes of sustained monomorphic ventricular tachycardia If so consideration for VT ablation, scar based VT ablation Consideration for amiodarone for management of atrial fibrillation and ventricular tachycardia Patient's creatinine today is 1.2 but it is variable and was even up to 1.6 and hence sotalol was avoided Preop diagnosis Persistent atrial fibrillation, symptomatic with heart failure symptoms Consideration for upgrade to a biventricular ICD with AV node ablation in the future for management of atrial fibrillation Dual-chamber ICD interrogation and reprogramming Procedure details Cinefluoroscopy of the leads was performed Chronic atrial lead and a single coil RV lead Atrial lead stable position in right atrial appendage RV lead stable position in RV septum Left upper extremity venogram 15 mL every dye injected into left upper extremity Patent left axillary, left subclavian and innominate veins Device interrogation Dual-chamber ICD was interrogated Patient was in persistent atrial fibrillation Atrial pacing impedance 490 ohms RV pacing threshold 0.5 V at 0.5 ms, R waves 12 mV pacing impedance 610 ohms High-voltage impedance 52 ohms 11% RV pacing 1 episode of sustained ventricular tachycardia cycling 305 ms, VT 896 beats a minute Successful antitachycardia pacing to VT termination, one ATP round was successful ICD reprogrammed to atrial pacing mode with VIP to minimize RV pacing
[2021-06-15 09:04] VITALS: BP 126/60; PULSE 67
== END 2021-06-15 09:26 | disposition home or self-care (01) ==
LOC: CATHEP 05:51
PROVIDERS: ATTEND Internal Medicine Clinical Cardiac Electrophysiology
DX: Z45.02 Encounter for adjustment and management of automatic implantable cardiac defibrillator (principal); I48.19 Other persistent atrial fibrillation; I47.2 Ventricular tachycardia; I48.92 Unspecified atrial flutter; I25.5 Ischemic cardiomyopathy; I25.10 Atherosclerotic heart disease of native coronary artery without angina pectoris; I25.2 Old myocardial infarction; I11.0 Hypertensive heart disease with heart failure; I65.23 Occlusion and stenosis of bilateral carotid arteries; I50.22 Chronic systolic (congestive) heart failure; E78.5 Hyperlipidemia, unspecified; E11.9 Type 2 diabetes mellitus without complications; F17.210 Nicotine dependence, cigarettes, uncomplicated; Z82.49 Family history of ischemic heart disease and other diseases of the circulatory system; Z95.1 Presence of aortocoronary bypass graft; Z95.5 Presence of coronary angioplasty implant and graft; Z88.8 Allergy status to other drugs, medicaments and biological substances; Z79.01 Long term (current) use of anticoagulants; Z79.899 Other long term (current) drug therapy; Z91.018 Allergy to other foods
CPT/HCPCS: 36005; 75820; 93283; 80048; 84443; 85049; 87635; J2250; J2001; J2704; Q9967

== ENCOUNTER → 2021-08-05 | Outpatient (CLI) | payer BC ==
[2021-08-05 16:27] LABS: Chol/HDL Ratio 1.54 Ratio; Glucose 118 mg/dL (70-110); LDL Cholesterol,Calculated 4.3 mg/dL (0.0-131.0); VLDL Calculation 15.48 mg/dL (5.00-40.00)
== END | disposition home or self-care (01) ==
LOC: LABWHC1 10:41
PROVIDERS: ATTEND Internal Medicine
DX: E11.65 Type 2 diabetes mellitus with hyperglycemia (principal)
CPT/HCPCS: 36415; 80061; 82043; 82570; 82947; 83036

== ENCOUNTER → 2021-10-16 | Outpatient (CLI) | payer BC | END | disposition home or self-care (01) | LOC: LABWHC1 16:30 | PROVIDERS: ATTEND Internal Medicine | DX: E11.65 Type 2 diabetes mellitus with hyperglycemia (principal) | CPT/HCPCS: 36415; 83036 ==

== ENCOUNTER → 2022-01-20 | Outpatient (CLI) | payer BC | END | disposition home or self-care (01) | LOC: LABWHC1 09:59 | PROVIDERS: ATTEND Family Medicine | DX: E11.65 Type 2 diabetes mellitus with hyperglycemia (principal) | CPT/HCPCS: 36415; 83036 ==

== ENCOUNTER → 2022-03-09 | Outpatient (CLI) | payer BC ==
[2022-03-09 18:28] LABS: ALT 25 U/L (10-49); AST 25 U/L (14-35); African American GFR (CKD) 61.1 (60.0-200.0); Albumin 4.9 g/dL (3.8-4.9); Albumin/Globulin Ratio 2.04 (1.60-3.17); Alkaline Phosphatase 49 U/L (41-126); BUN/Creat Ratio 16.43 Ratio (12.00-20.00); Calcium 9.3 mg/dL (8.7-10.3); Carbon Dioxide 25.9 mmol/L (20.0-27.5); Chloride 103 mmol/L (96-109); Globulin 2.4 g/dL (1.6-3.3); Glucose 105 mg/dL (70-110); Non-African American GFR(CKD) 52.7 (60.0-200.0); Potassium 4.6 mmol/L (3.5-5.5); Sodium 141 mmol/L (135-145); Total Protein 7.3 g/dL (6.2-8.2)
[2022-03-09 18:29] LABS: Chol/HDL Ratio 2.38 Ratio
== END | disposition home or self-care (01) ==
LOC: LABWHC1 09:12
PROVIDERS: ATTEND Internal Medicine Clinical Cardiac Electrophysiology
DX: I50.9 Heart failure, unspecified (principal); I25.10 Atherosclerotic heart disease of native coronary artery without angina pectoris; I48.91 Unspecified atrial fibrillation
CPT/HCPCS: 36415; 80053; 80061; 84439; 84443

== ENCOUNTER 2022-09-12 08:03 | Day surgery (SDC) | payer BC, MEDICARE ==
[2022-09-12] MEDS ORDERED: LACTATED RINGERS 1,000 ML IV ONE (08:30)
[2022-09-12 08:44] LABS: Glucose,Whole Blood 103 mg/dL (70-110)
[2022-09-12 08:48] VITALS: RESP 16; TEMP 97.8
[2022-09-12] MEDS ORDERED: PROPOFOL 10 MG/ML 20 ML VIAL IV ONE (09:13)
--- NOTE | 2022-09-12 09:39 | P.PCN ---
Date of Procedure: 09/12/22 Procedure(s) Performed: BRIEF HISTORY: Patient is a 67-year-old pleasant female scheduled for an elective colonoscopy as a part of evaluation of intermittent rectal bleeding for the last 2-3 years duration. Patient has history of A. fib and is presently on Plavix since about 2 which is on hold for the last 2 days. PROCEDURE PERFORMED: Colonoscopy with snare polypectomy. PREOPERATIVE DIAGNOSIS: Intermittent rectal bleeding. IV sedation per Anesthesia. PROCEDURE: After informed consent was obtained, the patient, was brought into the endoscopy unit. IV sedation was administered by Anesthesia under continuous monitoring. Digital rectal examination was normal. Initially the Olympus CF-160 flexible video colonoscope was then inserted in the rectum, gradually advanced into the cecum without any difficulty. Careful examination was performed as the scope was gradually being withdrawn. Ileocecal valve and the appendiceal orifice were visualized and appeared normal. Prep was excellent. Mucosa of the cecum, ascending colon, transverse colon, descending colon, appeared normal. In the distal sigmoid there was a 7-8 mm polyp removed by snare polypectomy. Rest of the sigmoid colon, and rectum appeared normal. Retroflexion was performed in the rectum and small internal were seen. The patient tolerated the procedure well. IMPRESSION: 7-8 mm distal sigmoid: Polyp status post polypectomy Small internal hemorrhoids RECOMMENDATIONS: Findings of this examination were discussed with the patient as well as his family.. He was advised to follow with the biopsy results. If the biopsy results adenoma he can have a repeat colonoscopy in 5 years. He will resume Plavix Xarelto
[2022-09-12 10:07] VITALS: BP 134/81; PULSE 74
== END 2022-09-12 10:43 | disposition home or self-care (01) ==
LOC: ORWHC2ENDO 08:03
PROVIDERS: ATTEND Internal Medicine Gastroenterology
DX: K63.5 Polyp of colon (principal); K64.8 Other hemorrhoids; K62.5 Hemorrhage of anus and rectum; I25.2 Old myocardial infarction; I25.10 Atherosclerotic heart disease of native coronary artery without angina pectoris; I10 Essential (primary) hypertension; E78.5 Hyperlipidemia, unspecified; I48.91 Unspecified atrial fibrillation; E11.9 Type 2 diabetes mellitus without complications; M19.90 Unspecified osteoarthritis, unspecified site; Z79.899 Other long term (current) drug therapy; Z95.5 Presence of coronary angioplasty implant and graft
CPT/HCPCS: 45385; J2704; 88305

== ENCOUNTER 2022-11-19 05:04 | Inpatient (IN) | payer MEDICARE ==
[2022-11-19 05:48] LABS: Basophils # (A) 0.1 k/uL (0-0.2); Basophils % (A) 1 %; Eosinophils # (A) 0.2 k/uL (0-0.7); Eosinophils % (A) 3 %; HCT 41.9 % (39.0-53.0); HGB 14.3 gm/dL (13.0-17.5); Lymphocytes # (A) 1.7 k/uL (1.0-4.8); Lymphocytes % (A) 22 %; MCH 32.2 pg (25.0-35.0); MCHC 34.2 g/dL (31.0-37.0); MCV 94.2 fL (80.0-100.0); Mean Platelet Volume 8.4; Monocytes # (A) 0.5 k/uL (0-1.0); Monocytes % (A) 6 %; Neutrophils % (A) 66 %; Platelet Count 129 k/uL (150-450); RBC 4.45 m/uL (4.30-5.90); WBC 7.6 k/uL (3.8-10.6)
[2022-11-19 05:56] LABS: INR 1.2 (<1.2); Partial Thromboplastin Time 29.4 sec (22.0-30.0)
[2022-11-19 06:02] LABS: Albumin 4.6 g/dL (3.5-5.0); Calcium 9.3 mg/dL (8.4-10.2); Magnesium 1.7 mg/dL (1.6-2.3); Total Bilirubin 0.7 mg/dL (0.2-1.3); Total Protein 7.2 g/dL (6.3-8.2)
--- NOTE | 2022-11-19 06:29 | ED ---
Chest Pain HPI - General Chief Complaint: Chest Pain Stated Complaint: Chest Pain Source: patient Mode of arrival: ambulatory Limitations: no limitations - History of Present Illness Initial Comments: 67-year-old male with past history of coronary artery disease, A. fib, diabetes who is status post CABG who presents to the emergency department reporting chest pain. States that he started having midsternal chest pain around 7 PM. It then increased around 3 PM. He took 2 nitro without any relief. Additionally took an antacid for which did seem to help his symptoms. He denies any shortness of breath, nausea, vomiting or diaphoresis. No fevers. Denies cough. Last stress test was a year and half ago. Does have pacemaker and ICD. No other alleviating, precipitating or modifying factors - Related Data Home Medications Medication Instructions Recorded Confirmed Cholecalciferol [Vitamin D3 (25 50 mcg PO DAILY 06/17/14 11/19/22 Mcg = 1000 Iu)] Cyanocobalamin [Vitamin B-12] 500 mcg PO DAILY 12/08/14 11/19/22 Metoprolol Succinate [Toprol XL] 200 mg PO DAILY 05/21/16 11/19/22 Ascorbic Acid [Vitamin C] 500 mg PO DAILY 10/05/17 11/19/22 Evolocumab [Repatha Sureclick] 140 mg SQ Q14D 10/10/18 11/19/22 Repaglinide [Prandin] 1 mg PO BID 01/05/20 11/19/22 Furosemide [Lasix] 40 mg PO DAILY 04/20/20 11/19/22 Gabapentin 600 mg PO TID 04/20/20 11/19/22 Ezetimibe [Zetia] 10 mg PO DAILY 09/12/20 11/19/22 Fexofenadine HCl [Shila Allergy] 180 mg PO DAILY 09/12/20 11/19/22 Cinnamon Bark [Cinnamon] 500 mg PO DAILY 05/29/21 11/19/22 Tamsulosin [Flomax] 0.4 mg PO DAILY 05/29/21 11/19/22 Metoprolol Succinate [Toprol XL] 100 mg PO HS 09/11/22 11/19/22 Sacubitril/Valsartan [Entresto 49 1 tab PO DAILY 09/11/22 11/19/22 mg-51 mg Tablet] Dicyclomine [Bentyl] 20 mg PO TID PRN 11/19/22 11/19/22 Furosemide [Lasix] 20 mg PO W/SUPPER 11/19/22 11/19/22 Insulin Glargine/Lixisenatide 40 units SQ HS 11/19/22 11/19/22 [Soliqua 100 Unit-33 Mcg/ml Pen] Nitroglycerin Sl Tabs [Nitrostat] 0.4 mg SL Q5M PRN 11/19/22 11/19/22 Pravastatin Sodium [Pravachol] 20 mg PO HS 11/19/22 11/19/22 Previous Rx's Medication Instructions Recorded Clopidogrel [Plavix] 75 mg PO DAILY #30 tab 01/18/18 Rivaroxaban [Xarelto] 20 mg PO DAILY #90 tab 06/15/21 Allergies Allergy/AdvReac Type Severity Reaction Status Date / Time wheat Allergy Anaphylaxis Verified 11/19/22 09:21 Review of Systems ROS Statement: Those systems with pertinent positive or pertinent negative responses have been documented in the HPI. ROS Other: All systems not noted in ROS Statement are negative. EKG Findings - EKG Comments: EKG Findings:: EKG interpreted by myself. Demonstrates A. fib with a rate of 84. QRS 124. QTC 451. PVCs. Baseline artifact. No acute ST segment elevation. Depression V4 through V6 Past Medical History Past Medical History: Atrial Fibrillation, Coronary Artery Disease (CAD), Chest Pain / Angina, Heart Failure, Diabetes Mellitus, Hyperlipidemia, Hypertension, Myocardial Infarction ([place]), Osteoarthritis (OA), Vascular Disorder Additional Past Medical History / Comment(s): tinnitis R ear, diverticulosis, "racing heart", varicose veins, Last Myocardial Infarction Date:: 1993 History of Any Multi-Drug Resistant Organisms: None Reported Past Surgical History: AICD, Appendectomy, Cardiac Ablation, Cholecystectomy, Coronary Bypass/CABG, Ear Surgery, Heart Catheterization, Heart Catheterization With Stent, Pacemaker Additional Past Surgical History / Comment(s): 2008 CABG -4 vessel, cardioversions x 3, cardiac ablation x 2 , R ear surgery, cataract surgery antoni Past Anesthesia/Blood Transfusion Reactions: No Reported Reaction Additional Past Anesthesia/Blood Transfusion Reaction / Comment(s): was awake during a procedure-"did not get enough anesthesia" Date of Last Stent Placement:: 05/07/18 Type of Cardiac Device: Biventricular Pacemaker, AICD Device Placement Date:: 2007 Past Psychological History: No Psychological Hx Reported Smoking Status: Former smoker Past Alcohol Use History: None Reported Past Drug Use History: None Reported - Past Family History Brother(s) Family Medical History: Cancer Additional Family Medical History / Comment(s): leukemia Mother Family Medical History: Cancer Additional Family Medical History / Comment(s): breast/brain General Exam Limitations: no limitations Course Vital Signs 11/19/22 11/19/22 11/19/22 05:07 05:27 05:30 Temperature 98.1 F Pulse Rate 91 89 Pulse Rate [ 80 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 sent in by a medical professional or institution (, PA, EDUCATION RN, urgent care, hospital, or care home...) When possible be specific @ -[No] Did you speak to anyone other than the patient for history (EMS, parent, family, police, friend...)? What history was obtained from this source @ -[No] Did you review nursing and triage notes (agree or disagree)? Why? @ -[I reviewed and agree with nursing and triage notes] Were old charts reviewed (outside hosp., previous admission, EMS record, old EKG, old radiological studies, urgent care reports/EKG's, care home records)? Report findings @ -[No old charts were reviewed] Differential Diagnosis (chest pain, altered mental status, abdominal pain women, abdominal pain men, vaginal bleeding, weakness, fever, dyspnea, syncope, headache, dizziness, GI bleed, back pain, seizure, CVA, palpatations, mental health, musculoskeletal)? @ -[not applicable] EKG interpreted by me (3pts min.). @ -[As above] X-rays interpreted by me (1pt min.). @ -[None done] CT interpreted by me (1pt min.). @ -[None done] U/S interpreted by me (1pt. min.). @ -[None done] What testing was considered but not performed or refused? (CT, X-rays, U/S, labs)? Why? @ -[None] What meds were considered but not given or refused? Why? @ -[None] Did you discuss the management of the patient with other professionals (professionals i.e. DrMargaret, PA, EDUCATION RN, lab, RT, psych nurse, social sciences professor, supervisor malted milk, teacher, [employer] officer, spring encaser)? Give summary @ -[No] Was smoking cessation discussed for >3mins.? @ -[No] Was critical care preformed (if so, how long)? @ -[No] Were there social determinants of health that impacted care today? How? (Homelessness, low income, unemployed, alcoholism, drug addiction, transportation, low edu. Level, literacy, decrease access to med. care, custodial, rehab)? @ -[No] Was there de-escalation of care discussed even if they declined (Discuss DNR or withdrawal of care, Hospice)? DNR status @ -[No] What co-morbidities impacted this encounter? (DM, HTN, Smoking, COPD, CAD, Cancer, CVA, ARF, Chemo, Hep., AIDS, mental health diagnosis, sleep apnea, morbid obesity)? @ -[None] Was patient admitted / discharged? Hospital course, mention meds given and route, prescriptions, significant lab abnormalities, going to OR and other pertinent info. @ -Upon arrival patient is placed in room 6. History and physical exam is performed. 12-lead EKG obtained which demonstrates no ST segment elevation. Laboratory studies are conducted and first troponin is negative. Chest x-ray is interpreted by myself as there is significant radiology delay. Chest x-ray demonstrates no acute process. Results are discussed with patient. Recommended admission for cartilage constipation for which she did agree to. Spoke with Dr. Stuart who agreed to admit the patient Undiagnosed new problem with uncertain prognosis? @ -[No] Drug Therapy requiring intensive monitoring for toxicity (Heparin, Nitro, Insulin, Cardizem)? @ -[No] Were any procedures done? @ -[No] Diagnosis/symptom? @ -[default] Acute, or Chronic, or Acute on Chronic? @ -[default] Uncomplicated (without systemic symptoms) or Complicated (systemic symptoms)? @ -[default] Side effects of treatment? @ -[No] Exacerbation, Progression, or Severe Exacerbation? @ -[No] Poses a threat to life or bodily function? How? (Chest pain, [place], [place], pneumonia, PE, COPD, DKA, ARF, appy, cholecystitis, CVA, Diverticulitis, Homicidal, Suicidal, threat to staff... and all critical care pts) @ -[No] Disposition Clinical Impression: Chest pain, Coronary artery disease Disposition: ADMITTED IP TO THIS [facility] Condition: Stable Is patient prescribed a controlled substance at d/c from ED?: No Time of Disposition: : Decision to Admit Reason: Admit from EC Decision Date: 11/19/22 Decision Time:
[2022-11-19] MEDS ORDERED: NALOXONE 0.4 MG/ML 1 ML VIAL IV PRN (06:30)
[2022-11-19] MEDS ORDERED: ASPIRIN 81 MG PO STA (06:49)
--- NOTE | 2022-11-19 07:39 | XR ---
EXAMINATION TYPE: XR chest 2V DATE OF EXAM: 11/19/2022 COMPARISON: 09/01/2018 HISTORY: 67-year-old male with chest pain TECHNIQUE: PA and lateral views FINDINGS: Left anterior chest wall AICD generator with right atrial and ventricular leads. Median sternotomy wi res are present in the post-CABG clips. There appears to be a coronary stent also present. Heart bord marii enlarged. Mild interstitial prominence is unchanged. Mild hyperinflation. Some strandy atelect asis in the lower lungs. No consolidation or pleural effusion. IMPRESSION: Borderline heart size. Chronic-appearing changes, possible underlying COPD. Post CABG changes and 2-l ead, left-sided AICD generator. No acute process seen.
[2022-11-19] MEDS ORDERED: SACUBITRIL/VALSARTAN 49 MG-51 MG TABLET PO SCH (10:00)
[2022-11-19] MEDS: METOPROLOL SUCCINATE (ER) 100 MG TAB.ER.24H PO SCH ×2 (10:22→21:07)
[2022-11-19] MEDS: CLOPIDOGREL 75 MG TAB PO SCH (10:22)
[2022-11-19] MEDS: FUROSEMIDE 40 MG TAB PO SCH (10:23)
[2022-11-19] MEDS: EZETIMIBE 10 MG TAB PO SCH (10:23)
--- NOTE | 2022-11-19 10:36 | P.CRDCN ---
History of Present Illness Consult date: 11/19/22 History of present illness: HISTORY OF PRESENT ILLNESS: This is a 67-year-old male with a past medical history significant for coronary artery disease with previous CABG, persistent atrial fibrillation, nonsustained ventricular tachycardia, ischemic cardiomyopathy with previous AICD implantation. Patient follows in the office with Dr. Morton. We have been asked to see the patient in consultation for chest pain. Patient examined at the bedside. Patient states that yesterday he was having some chest discomfort but he did not think much of it. He states that he went out [employer] yesterday around midnight. He states when he was out fishing he did not have any pain. However, I'll after he came home from fishing around 3:00 in the morning he developed chest pain again. He states that this pain was not similar to his previous heart attacks or when he required stenting. He states that he took 2 nitro and also some antacids. Neither of these helped his chest pain. He does report this morning when he ate a banana he had some discomfort in his chest. He also gives history that for the past 2 weeks he has been more short of breath than normal. He states he cannot walk to his mailbox and back without getting winded. At the time of examination, the patient states that he developed chest pain again. EKG was completed at the bedside during examination which revealed atrial fibrillation with no signs of acute ischemia. * EKG reveals atrial fibrillation with no signs of acute ischemia * Chest xray borderline heart size. Chronic appearing changes. Possible underlying COPD. Post CABG changes. Left-sided AICD generator. No acute process seen. * Laboratory data: W BC 7.6. Hemoglobin 14.3. Platelet count 129. Sodium 137. Potassium 4.0. B UN 26. Creatinine 1.14. Troponin negative 2. * Current home cardiac medications include Entresto 49-51 milligrams daily, Plavix 75 mg daily, red Path a 140 mg subcu every 14 days, Zetia 10 mg daily, Lasix 40 mg in the morning and 20 mg in the afternoon, metoprolol succinate 200 mg in the morning and 100 mg at night, Pravachol 20 mg at night, Xarelto 20 mg daily * Most recent echocardiogram obtained in July 2020 revealed EF 30%, global LV hypokinesis, moderately increased pulmonary artery systolic pressure. * Patient underwent CABG in July 2008 with HELTON to LAD, SVG to diagonal, radial artery to obtuse marginal, SVG to RCA * Cardiac catheterization history: * September 2012 with stenting to the LAD * September 2018 with PCI of the diagonal and obtuse marginal coronary artery. REVIEW OF SYSTEMS: At the time of my exam: CONSTITUTIONAL: Denies fever or chills. HEENT: Denies blurred vision, vision changes, or eye pain. Denies hemoptysis CARDIOVASCULAR: Denies chest pain. Denies orthopnea. Denies PND. Denies palpitations RESPIRATORY: Denies shortness of breath. GASTROINTESTINAL: Denies abdominal pain. Denies nausea or vomiting. HEMATOLOGIC: Denies bleeding disorders. GENITOURINARY: Denies any blood in urine. SKIN: Denies pruitis. Denies rash. PHYSICAL EXAM: VITAL SIGNS: Reviewed. GENERAL: Well-developed in no acute distress. HEENT: Head is normocephalic. Pupils are equal, round. Sclerae anicteric. Mucous membranes of the mouth are moist. Neck supple. No JVD or thyromegaly LUNGS: Respirations even and unlabored. Lungs essentially clear to auscultation bilaterally. HEART: Irregular rate and rhythm. S1 and S2 heard. ABDOMEN: Soft. Nondistended. Nontender. EXTREMITIES: Normal range of motion. No clubbing or cyanosis. Peripheral pulses intact. No lower extremity edema NEUROLOGIC: Awake and alert. Oriented x 3. ASSESSMENT: Chest pain Coronary artery disease with previous CABG and subsequent stenting Persistent atrial fibrillation with controlled ventricular rate Ischemic cardiomyopathy, EF 30% History of AICD implantation Hypertension Hyperlipidemia History of nonsustained VT PLAN: Obtain 2-D echo to assess cardiac structure and function Resume home cardiac medications Increase Entresto to BID dosing Hold Xarelto Continue to trend troponins Tentatively will plan for cardiac catheterization tomorrow Nothing by mouth at midnight Further recommendations pending patient's course Nurse practitioner note has been reviewed by physician. Signing provider agrees with the documented findings, assessment, and plan of care. Past Medical History Past Medical History: Atrial Fibrillation, Coronary Artery Disease (CAD), Chest Pain / Angina, Heart Failure, Diabetes Mellitus, Hyperlipidemia, Hypertension, Myocardial Infarction ([place]), Osteoarthritis (OA), Vascular Disorder Additional Past Medical History / Comment(s): tinnitis R ear, diverticulosis, "racing heart", varicose veins, Last Myocardial Infarction Date:: 1993 History of Any Multi-Drug Resistant Organisms: None Reported Past Surgical History: AICD, Appendectomy, Cardiac Ablation, Cholecystectomy, Coronary Bypass/CABG, Ear Surgery, Heart Catheterization, Heart Catheterization With Stent, Pacemaker Additional Past Surgical History / Comment(s): 2008 CABG -4 vessel, cardioversions x 3, cardiac ablation x 2 , R ear surgery, cataract surgery antoni Past Anesthesia/Blood Transfusion Reactions: No Reported Reaction Additional Past Anesthesia/Blood Transfusion Reaction / Comment(s): was awake during a procedure-"did not get enough anesthesia" Date of Last Stent Placement:: 05/07/18 Type of Cardiac Device: Biventricular Pacemaker, AICD Device Placement Date:: 2007 Past Psychological History: No Psychological Hx Reported Smoking Status: Former smoker Past Alcohol Use History: None Reported Past Drug Use History: None Reported - Past Family History Brother(s) Family Medical History: Cancer Additional Family Medical History / Comment(s): leukemia Mother Family Medical History: Cancer Additional Family Medical History / Comment(s): breast/brain Medications and Allergies Home Medications Medication Instructions Recorded Confirmed Type Cholecalciferol [Vitamin D3 (25 50 mcg PO DAILY 06/17/14 11/19/22 History Mcg = 1000 Iu)] Cyanocobalamin [Vitamin B-12] 500 mcg PO DAILY 12/08/14 11/19/22 History Metoprolol Succinate [Toprol XL] 200 mg PO DAILY 05/21/16 11/19/22 History Ascorbic Acid [Vitamin C] 500 mg PO DAILY 10/05/17 11/19/22 History Clopidogrel [Plavix] 75 mg PO DAILY #30 tab 01/18/18 11/19/22 Rx Evolocumab [Repatha Sureclick] 140 mg SQ Q14D 10/10/18 11/19/22 History Repaglinide [Prandin] 1 mg PO BID 01/05/20 11/19/22 History Furosemide [Lasix] 40 mg PO DAILY 04/20/20 11/19/22 History Gabapentin 600 mg PO TID 04/20/20 11/19/22 History Ezetimibe [Zetia] 10 mg PO DAILY 09/12/20 11/19/22 History Fexofenadine HCl [Shila Allergy] 180 mg PO DAILY 09/12/20 11/19/22 History Cinnamon Bark [Cinnamon] 500 mg PO DAILY 05/29/21 11/19/22 History Tamsulosin [Flomax] 0.4 mg PO DAILY 05/29/21 11/19/22 History Rivaroxaban [Xarelto] 20 mg PO DAILY #90 tab 06/15/21 11/19/22 Rx Metoprolol Succinate [Toprol XL] 100 mg PO HS 09/11/22 11/19/22 History Sacubitril/Valsartan [Entresto 49 1 tab PO DAILY 09/11/22 11/19/22 History mg-51 mg Tablet] Dicyclomine [Bentyl] 20 mg PO TID PRN 11/19/22 11/19/22 History Furosemide [Lasix] 20 mg PO W/SUPPER 11/19/22 11/19/22 History Insulin Glargine/Lixisenatide 40 units SQ HS 11/19/22 11/19/22 History [Soliqua 100 Unit-33 Mcg/ml Pen] Nitroglycerin Sl Tabs [Nitrostat] 0.4 mg SL Q5M PRN 11/19/22 11/19/22 History Pravastatin Sodium [Pravachol] 20 mg PO HS 11/19/22 11/19/22 History Allergies Allergy/AdvReac Type Severity Reaction Status Date / Time wheat Allergy Anaphylaxis Verified 11/19/22 09:21 Physical Exam Vitals: Vital Signs Temp Pulse Pulse Resp BP Pulse Ox 11/19/22 10:00 84 18 173/91 99 11/19/22 08:23 89 18 163/89 98 11/19/22 06:30 84 15 149/82 95 11/19/22 06:00 81 13 159/94 94 L 11/19/22 05:30 89 14 137/101 95 11/19/22 05:27 80 11/19/22 05:07 98.1 F 91 18 162/85 98 Intake and Output 11/18/22 11/19/22 11/19/22 22:59 06:59 14:59 Other: Weight 102.058 kg Results 11/19/22 05:27 11/19/22 05:27 Cardiac Enzymes 11/19/22 11/19/22 11/19/22 Range/Units 05:27 05:27 09:04 AST 30 (17-59) U/L Troponin I <0.012 0.012 (0.000-0.034) ng/mL Coagulation 11/19/22 Range/Units 05:27 PT 12.0 (9.0-12.0) sec APTT 29.4 (22.0-30.0) sec CBC 11/19/22 Range/Units 05:27 WBC 7.6 (3.8-10.6) k/uL RBC 4.45 (4.30-5.90) m/uL Hgb 14.3 (13.0-17.5) gm/dL Hct 41.9 (39.0-53.0) % Plt Count 129 L (150-450) k/uL Comprehensive Metabolic Panel 11/19/22 Range/Units 05:27 Sodium 137 (137-145) mmol/L Potassium 4.0 (3.5-5.1) mmol/L Chloride 101 (98-107) mmol/L Carbon Dioxide 25 (22-30) mmol/L BUN 26 H (9-20) mg/dL Creatinine 1.14 (0.66-1.25) mg/dL Glucose 154 H (74-99) mg/dL Calcium 9.3 (8.4-10.2) mg/dL AST 30 (17-59) U/L ALT 27 (4-49) U/L Alkaline Phosphatase 53 (38-126) U/L Total Protein 7.2 (6.3-8.2) g/dL Albumin 4.6 (3.5-5.0) g/dL Current Medications Generic Name Dose Route Start Last Admin Trade Name Freq PRN Reason Stop Dose Admin Clopidogrel Bisulfate 75 mg 11/19/22 09:48 11/19/22 10:22 Clopidogrel 75 Mg Tab PO 75 mg DAILY TERRY Administration Ezetimibe 10 mg 11/19/22 10:00 11/19/22 10:23 Ezetimibe 10 Mg Tab PO 10 mg DAILY TERRY Administration Furosemide 20 mg 11/19/22 17:30 Furosemide 20 Mg Tab PO W/SUPPER TERRY Furosemide 40 mg 11/19/22 10:00 11/19/22 10:23 Furosemide 40 Mg Tab PO 40 mg DAILY TERRY Administration Metoprolol Succinate 200 mg 11/19/22 10:00 11/19/22 10:22 Metoprolol Succinate (Er) 100 Mg Tab.Er.24h PO 200 mg DAILY TERRY Administration Metoprolol Succinate 100 mg 11/19/22 21:00 Metoprolol Succinate (Er) 100 Mg Tab.Er.24h PO HS [facility] Naloxone HCl 0.2 mg 11/19/22 06:30 Naloxone 0.4 Mg/Ml 1 Ml Vial IV Q2M PRN Opioid Reversal Non-Formulary Medication 140 mg 12/01/22 09:00 Evolocumab [Jasmeet Dubois] SQ Q14D [facility] Pravastatin Sodium 20 mg 11/19/22 21:00 Pravastatin Sodium 20 Mg Tab PO HS [facility] Sacubitril/Valsartan 1 each 11/19/22 10:00 11/19/22 10:23 Sacubitril/Valsartan 49 Mg-51 Mg Tablet PO 1 each DAILY [facility] Administration Intake and Output 11/18/22 11/19/22 11/19/22 22:59 06:59 14:59 Other: Weight 102.058 kg 11/19/22 05:27 11/19/22 05:27
[2022-11-19] MEDS ORDERED: ALPRAZolam 0.25 MG TAB PO PRN (12:33)
[2022-11-19] MEDS ORDERED: NITROGLYCERIN SL TABS 0.4 MG TAB SUBLINGUAL PRN (12:33)
[2022-11-19] MEDS ORDERED: ALPRAZolam 0.5 MG TAB PO PRN (12:33)
[2022-11-19] MEDS ORDERED: ACETAMINOPHEN TAB 325 MG TAB PO PRN (12:56)
[2022-11-19] MEDS ORDERED: ONDANSETRON 4 MG/2 ML VIAL IVP PRN (12:56)
[2022-11-19] MEDS ORDERED: MELATONIN 3 MG TABLET PO PRN (12:56)
[2022-11-19] MEDS ORDERED: DEXTROSE 50% SYRINGE 50 ML IVP PRN ×2 (12:57)
--- NOTE | 2022-11-19 13:00 | P.HPIM ---
History of Present Illness H&P Date: 11/19/22 Patient is a 67-year-old male with a history of coronary artery disease status post 4 flow bypass and stents, atrial fibrillation status post ablation 2, congestive heart failure status post AICD, hypertension, dyslipidemia, diabetes mellitus, and multiple other comorbid conditions who presented to the ER with complaints of chest pain. He had relief of his chest pain upon arrival to the ER. In the ER he underwent extensive evaluation. His initial blood pressure was elevated at 162/85. Initial laboratory analysis was remarkable for a platelet count of 129. Initial troponin was less than 0.012. EKG is reviewed by myself reveals atrial fibrillation with no significant ST-T wave changes. Results are made for her chest pain observation. Cardiology was consulted. Patient seen and examined at bedside. He reports that he started having chest pain on his boat yesterday around midnight. He tried taking nitro and antacids but did not have any relief. He does note that for the last 2 weeks when he has been up and ambulating he is getting significantly more short of breath, he developed sudden onset fatigue, and then has bilateral lower extremity pain. He reports that is significantly limiting his activities including walking to the mailbox. He also reports that he has had an upper respiratory tract infection for approximately the last 2 weeks. His has the same infection. He did take a cold the test early in the course of this illness which was an at-home te sting was negative. He continues to have some rhinorrhea. He is unsure what provokes it pain. Cardiac catheterization 2018-severe triple vessel coronary artery disease, patent HELTON to LAD, patent SVG to obtuse marginal, patent radial artery to obtuse marginal of the left circumflex, obtuse marginal branch distal to the anastomosis has a 60% lesion, taking stent in the RCA, successful stenting of the LAD during this cath. Vital signs reviewed General: nontoxic, no distress, appears at stated age Derm: warm, dry Eyes: EOMI, no lid lag, anicteric sclera, pupils equal round reactive to light ENT: Nose and ears atraumatic, no thrush, no pharyngeal erythema Cardiovascular: S1S2 reg, no murmur, positive posterior tibial pulse bilateral, no edema, capillary refill less than 2 seconds Lungs: clear to auscultation bilateral, no rhonchi, no rales, no wheeze, no accessory muscle use Abdominal: soft, nontender to palpation, no guarding, no appreciable organomegaly, normal bowel sounds Ext: no gross muscle atrophy, muscle strength 5 out of 5 in all 4 extremities, no contractures Neuro: CN II-XII grossly intact, light touch intact all 4 extremities, finger to nose within normal limits, Psych: Alert, oriented, appropriate affect Assessment: Chest pain in patient with history of significant coronary artery disease Compensated systolic congestive heart failure with ejection fraction 30-35% from 2018 History of nonsustained V. tach Diabetes mellitus type 2, insulin-requiring Hypertension Dyslipidemia Chronic: History of atrial fibrillation status post cardiac ablation, currently in A. fib Varicose veins Imaging: Chest x-ray is reviewed by myself shows increased interstitial markings with AICD in place Data Review: As per HPI Plan: -Place in Observation -Telemetry, serial troponins -Continue with aspirin, Plavix -Cardiology consultation -Continue with contrast oh, metoprolol 300 mg daily, Lasix, statin, and Plavix 5 mg daily -Patient does take her Is Due for His Next Dose This Coming Saturday -Continue with Zetia, Xarelto 20 Mg Daily -Start Glargine 30 Units at Night and Sliding Scale Insulin, check A1C The patient is admitted with an anticipated greater than 2 midnight stay for evaluation of chest pain, possible acute coronary syndrome. Surrogate decision-maker: DVT prophylaxis: On xarelto Discussed with: ED physician Anticipated discharge date:Pending clinical course Anticipated discharge place: Pending clinical course This dictation was prepared using [employer] voice recognition software. Though every attempt is made to correct errors during during dictation some may still exist. Past Medical History Past Medical History: Atrial Fibrillation, Coronary Artery Disease (CAD), Chest Pain / Angina, Heart Failure, Diabetes Mellitus, Hyperlipidemia, Hypertension, Myocardial Infarction ([place]), Osteoarthritis (OA), Vascular Disorder Additional Past Medical History / Comment(s): tinnitis R ear, diverticulosis, "racing heart", varicose veins, Last Myocardial Infarction Date:: 1993 History of Any Multi-Drug Resistant Organisms: None Reported Past Surgical History: AICD, Appendectomy, Cardiac Ablation, Cholecystectomy, Coronary Bypass/CABG, Ear Surgery, Heart Catheterization, Heart Catheterization With Stent, Pacemaker Additional Past Surgical History / Comment(s): 2008 CABG -4 vessel, cardioversions x 3, cardiac ablation x 2 , R ear surgery, cataract surgery antoni Past Anesthesia/Blood Transfusion Reactions: No Reported Reaction Additional Past Anesthesia/Blood Transfusion Reaction / Comment(s): was awake during a procedure-"did not get enough anesthesia" Date of Last Stent Placement:: 05/07/18 Type of Cardiac Device: Biventricular Pacemaker, AICD Device Placement Date:: 2007 Past Psychological History: No Psychological Hx Reported Smoking Status: Former smoker Past Alcohol Use History: None Reported Past Drug Use History: None Reported - Past Family History Brother(s) Family Medical History: Cancer Additional Family Medical History / Comment(s): leukemia Mother Family Medical History: Cancer Additional Family Medical History / Comment(s): breast/brain Medications and Allergies Home Medications Medication Instructions Recorded Confirmed Type Cholecalciferol [Vitamin D3 (25 50 mcg PO DAILY 06/17/14 11/19/22 History Mcg = 1000 Iu)] Cyanocobalamin [Vitamin B-12] 500 mcg PO DAILY 12/08/14 11/19/22 History Metoprolol Succinate [Toprol XL] 200 mg PO DAILY 05/21/16 11/19/22 History Ascorbic Acid [Vitamin C] 500 mg PO DAILY 10/05/17 11/19/22 History Clopidogrel [Plavix] 75 mg PO DAILY #30 tab 01/18/18 11/19/22 Rx Evolocumab [Repatha Sureclick] 140 mg SQ Q14D 10/10/18 11/19/22 History Repaglinide [Prandin] 1 mg PO BID 01/05/20 11/19/22 History Furosemide [Lasix] 40 mg PO DAILY 04/20/20 11/19/22 History Gabapentin 600 mg PO TID 04/20/20 11/19/22 History Ezetimibe [Zetia] 10 mg PO DAILY 09/12/20 11/19/22 History Fexofenadine HCl [Shila Allergy] 180 mg PO DAILY 09/12/20 11/19/22 History Cinnamon Bark [Cinnamon] 500 mg PO DAILY 05/29/21 11/19/22 History Tamsulosin [Flomax] 0.4 mg PO DAILY 05/29/21 11/19/22 History Rivaroxaban [Xarelto] 20 mg PO DAILY #90 tab 06/15/21 11/19/22 Rx Metoprolol Succinate [Toprol XL] 100 mg PO HS 09/11/22 11/19/22 History Sacubitril/Valsartan [Entresto 49 1 tab PO DAILY 09/11/22 11/19/22 History mg-51 mg Tablet] Dicyclomine [Bentyl] 20 mg PO TID PRN 11/19/22 11/19/22 History Furosemide [Lasix] 20 mg PO W/SUPPER 11/19/22 11/19/22 History Insulin Glargine/Lixisenatide 40 units SQ HS 11/19/22 11/19/22 History [Soliqua 100 Unit-33 Mcg/ml Pen] Nitroglycerin Sl Tabs [Nitrostat] 0.4 mg SL Q5M PRN 11/19/22 11/19/22 History Pravastatin Sodium [Pravachol] 20 mg PO HS 11/19/22 11/19/22 History Allergies Allergy/AdvReac Type Severity Reaction Status Date / Time wheat Allergy Anaphylaxis Verified 11/19/22 09:21 Physical Exam Osteopathic Statement: *. No significant issues noted on an osteopathic structural exam other than those noted in the History and Physical/Consult. Vitals: Vital Signs Temp Pulse Pulse Resp BP Pulse Ox 11/19/22 06:30 84 15 149/82 95 11/19/22 06:00 81 13 159/94 94 L 11/19/22 05:30 89 14 137/101 95 11/19/22 05:27 80 11/19/22 05:07 98.1 F 91 18 162/85 98 Intake and Output 11/18/22 11/19/22 11/19/22 22:59 06:59 14:59 Other: Weight 102.058 kg Results CBC & Chem 7: 11/19/22 05:27 11/19/22 05:27 Labs: Abnormal Lab Results - Last 24 Hours (Table) 11/19/22 11/19/22 11/19/22 Range/Units 05:27 05:27 05:27 Plt Count 129 L (150-450) k/uL INR 1.2 H (<1.2) BUN 26 H (9-20) mg/dL Glucose 154 H (74-99) mg/dL
[2022-11-19 14:37] LABS: Glucose,Whole Blood 167 mg/dL (70-110)
[2022-11-19 15:45] LABS: Chol/HDL Ratio 3.03 Ratio
[2022-11-19 16:34] LABS: Glucose,Whole Blood 153 mg/dL (70-110)
[2022-11-19] MEDS: INSULIN ASPART (NovoLOG) 100 UNIT/ML VIAL SQ SCH ×2 (16:34→21:21)
[2022-11-19] MEDS: FUROSEMIDE 20 MG TAB PO SCH (17:16)
--- NOTE | 2022-11-19 18:15 | CA ---
Transthoracic Echo Report Name: Samuel James Age: 67 Gender: M : 1955 Exam Date: 11/19/2022 14:16 Exam Location: [facility] Ht (in): 73 Wt (lb): 225 Ordering Physician: Nakita Dorantes Attending/Referring Phys: [id number], Jose E Wallpaper Printer Helper Thao Kimble RDCS Procedure CPT: Indications: LV function Cardiac Hx: CABG , stents , AICD Technical Quality: Technically difficult study Contrast 1: Total Dose (mL): Contrast 2: Total Dose (mL): MEASUREMENTS (Male / Female) Normal Values 2D ECHO LV Diastolic Diameter PLAX 6.1 cm 4.2 - 5.9 / 3.9 - 5.3 cm LV Systolic Diameter PLAX 5.3 cm IVS Diastolic Thickness 1.3 cm 0.6 - 1.0 / 0.6 - 0.9 cm LVPW Diastolic Thickness 1.5 cm 0.6 - 1.0 / 0.6 - 0.9 cm LV Relative Wall Thickness 0.5 RV Internal Dim ED PLAX 3.5 cm LA Systolic Diameter LX 4.8 cm 3.0 - 4.0 / 2.7 - 3.8 cm LV Diastolic Volume MOD BP 105.8 cm??? 67 - 155 / 56 - 104 cm??? LV Systolic Volume MOD BP 78.8 cm??? - 58 / 19 - 49 cm??? LV Ejection Fraction MOD BP 25.5 % >= 55 % LV Cardiac Index MOD BP 957.3 cm???/min???m??? LV Diastolic Volume MOD 4C 110.3 cm??? LV Systolic Volume MOD 4C 73.5 cm??? LV Ejection Fraction MOD 4C 33.3 % LV Cardiac Index MOD 4C 1302.5 cm???/min???m??? LV Diastolic Length 4C 7.2 cm LV Systolic Length 4C 6.4 cm LV Diastolic Volume MOD 2C 99.5 cm??? LV Systolic Volume MOD 2C 77.6 cm??? LV Ejection Fraction MOD 2C 22.0 % LV Cardiac Index MOD 2C 776.2 cm???/min???m??? LV Diastolic Length 2C 6.9 cm LV Systolic Length 2C 5.8 cm LA Volume 77.8 cm??? 18 - 58 / 22 - 52 cm??? M-MODE Aortic Root Diameter MM 3.8 cm MV E Point Septal Separation 1.0 cm AV Cusp Separation MM 2.1 cm DOPPLER AV Peak Velocity 110.3 cm/s AV Peak Gradient 4.9 mmHg MV Area PHT 5.4 cm??? MV Deceleration Time 128.7 ms TR Peak Velocity 285.4 cm/s TR Peak Gradient 32.6 mmHg Right Ventricular Systolic Press 45.4 mmHg FINDINGS Left Ventricle Left ventricular ejection fraction is estimated at 35-40 %. Mildly increased septal wall thickness. Mildly increased left ventricular diastolic diameter. Moderately increased left ventricular systolic volume. Moderate to severe decreased left ventricular ejection fraction. Right Ventricle Mild right ventricular dilatation. Moderate pulmonary hypertension. Right Atrium Normal right atrial size. Left Atrium Moderately increased left atrial diameter. Moderately increased left atrial volume. Mildly increased left atrial area. Mitral Valve Structurally normal mitral valve. No mitral stenosis, regurgitation or prolapse. Aortic Valve Trileaflet aortic valve. Aortic valve sclerosis. No aortic valve stenosis or regurgitation. Tricuspid Valve Structurally normal tricuspid valve. Mild tricuspid regurgitation. Pulmonic Valve Structurally normal pulmonic valve. Pericardium Normal pericardium. No pericardial effusion. Aorta Mild aortic dilatation at the level of the sinuses of valsalva 38 mm CONCLUSIONS Dilated LV with severe LV dysfunction ejection fraction 35% RV enlargement Dilated IVC Previewed by: Dr. Luis Morton MD (Electronically Signed) Final Date: 19 Nov 2022 18:14
[2022-11-19 20:37] LABS: Glucose,Whole Blood 226 mg/dL (70-110)
[2022-11-19] MEDS: SACUBITRIL/VALSARTAN 49 MG-51 MG TABLET PO SCH (21:07)
[2022-11-19] MEDS: PRAVASTATIN SODIUM 20 MG TAB PO SCH (21:07)
[2022-11-20] MEDS: SODIUM CHLORIDE 0.9% 1,000 ML in EMPTY BAG 1 BAG IV SCH ×3 (01:51→19:01)
[2022-11-20 03:10] LABS: Glucose,Whole Blood 123 mg/dL (70-110)
[2022-11-20] MEDS: INSULIN DETEMIR (LEVEMIR) 100 UNIT/ML SYR SQ SCH ×2 (04:54→20:42)
[2022-11-20] MEDS ORDERED: ASPIRIN 325 MG TAB PO ONE (05:00)
[2022-11-20] MEDS ORDERED: ATORVASTATIN 80 MG TAB PO ONE (05:00)
[2022-11-20 06:07] LABS: Glucose,Whole Blood 151 mg/dL (70-110)
[2022-11-20] MEDS: INSULIN ASPART (NovoLOG) 100 UNIT/ML VIAL SQ SCH ×4 (06:11→20:42)
[2022-11-20] MEDS ORDERED: HEPARIN SODIUM,PORCINE 10,000 UNIT in SODIUM CHLORIDE 0.9% 1,000 ML IRRIGATION PRN (07:00)
[2022-11-20] MEDS ORDERED: HEPARIN SODIUM,PORCINE 2,500 UNIT in SODIUM CHLORIDE 0.9% 250 ML IRRIGATION PRN (07:00)
[2022-11-20] MEDS ORDERED: IV FLUID CONTINUATION 350 ML IV ONE (07:26)
[2022-11-20] MEDS ORDERED: LIDOCAINE 1% INJ 10MG/ML (20 ML MDV) ONE (07:46)
[2022-11-20] MEDS ORDERED: MIDAZOLAM 2 MG/2 ML VIAL IV ONE (08:18)
[2022-11-20] MEDS ORDERED: LIDOCAINE 1% INJ 10MG/ML (30 ML VIAL-PF) SQ ONE (08:19)
[2022-11-20] MEDS ORDERED: IOPAMIDOL-370 100ML BTL INJ ONE ×2 (08:37→09:36)
[2022-11-20] MEDS ORDERED: HEPARIN SODIUM 1,000 UN/ML (10ML VL) ONE (08:52)
[2022-11-20] MEDS ORDERED: HEPARIN SODIUM 1,000 UN/ML (10ML VL) IV ONE (08:53)
[2022-11-20] MEDS ORDERED: FENOFIBRATE 160 MG TAB PO SCH (09:00)
[2022-11-20] MEDS ORDERED: NITROGLYCERIN 1000MCG/10ML SYRINGE INTRACORON ONE (09:06)
[2022-11-20] MEDS ORDERED: fentaNYL (PF) 50 MCG/ML 2 ML AMP ONE (09:19)
[2022-11-20] MEDS ORDERED: fentaNYL (PF) 50 MCG/ML 2 ML AMP IV ONE ×2 (09:20)
[2022-11-20] MEDS ORDERED: CLOPIDOGREL 75 MG TAB ONE (09:27)
[2022-11-20] MEDS ORDERED: CLOPIDOGREL 75 MG TAB PO ONE (09:35)
[2022-11-20] MEDS ORDERED: ATROPINE SULFATE 0.1 MG/ML 10ML SYRINGE IV PRN (09:36)
[2022-11-20] MEDS ORDERED: ZOLPIDEM 5 MG TAB PO PRN (09:36)
[2022-11-20] MEDS ORDERED: NITROGLYCERIN SL TABS 0.4 MG TAB SUBLINGUAL PRN (09:36)
[2022-11-20] MEDS ORDERED: MAG HYDROX/AL HYDROX/SIMETH 30 ML CUP PO PRN (09:36)
[2022-11-20] MEDS ORDERED: RX INFO: IV CONTRAST WAS GIVEN 1 EACH MISC MISCELLANE PRN (09:36)
--- NOTE | 2022-11-20 09:43 | P.PCN ---
Date of Procedure: 11/20/22 Operative Findings: CARDIAC CATHETERIZATION AND PERCUTANEOUS CORONARY INTERVENTION PERFORMING PHYSICIAN: Edi Land MD, [facility] PROCEDURE PERFORMED: 1. Selective right and left coronary angiogram 2. Left heart catheterization 3. Successful stenting of diagonal branch of the LAD using 2.5 x 15 mm Xience CHALINO with an excellent angiographic results with adjunctive use of IVUS 4. Selective right common femoral artery angiogram and ultrasound guided access of the right common femoral artery INDICATION: Unstable angina COMPLICATION: None APPROACH: Right common femoral artery LEVEL OF SEDATION: Moderate with the sedation time off 73 minutes PROCEDURE DESCRIPTION: After obtaining an informed consent the patient was brought to the cardiac blood bank laboratory professional. The right common femoral artery was cannulated using puncture technique under ultrasound guidance, the micro-puncture wire passed easily then I placed a 6-Bahraini sheath. Selective right and left coronary angiogram performed using JR4 and J L4 catheters. The bypass to the left circumflex was performed using the JR4 catheter as well as the HELTON to LAD. After that left heart catheterization was performed using 6-Bahraini pigtail catheter. Then I did intervene on the SVG to LCx. The procedure was completed was no complication. SELECTIVE CORONARY ANGIOGRAM: The right coronary artery: Large-caliber vessel and a dominant vessel. The RCA is a stented and the stent appeared to be patent Left main: As mild disease only. Bifurcates into an LCx and LAD The left circumflex: Large caliber vessel nondominant vessel. The proximal LCx is a stented and the stent is patent. OM1 appeared to be occluded. The left anterior descending artery: The LAD is occluded in the proximal portion after the bifurcation of the large diagonal branch. Coronary bypasses angiogram The HELTON to LAD is patent The radial artery bypass to OM is patent as well HEMODYNAMICS: The LVEDP was 8 mmHg was no significant gradient across aortic valve PCI OF THE diagonal: Anticoagulation was initiated using heparin with continuous ACT monitoring. Subsequently I did engage the left main using a CLS 3.5 guiding catheter. I did wire the diagonal using a whisper wire. Intravascular ultrasound was performed and showed severe in-stent restenosis with a diameter of the diagonal around 2.5 mm. Balloon angioplasty was performed using 2.5 mm balloon. The following angiogram showed dissection at the edge of the stent. I did deploy a 2.5 x 15 mm stent. Finally I did postdilated patient using 2.0 mm noncompliant balloon. The final angiogram showed good angiographic results and the procedure was completed was no complication CONCLUSION: Severe triple-vessel coronary artery disease Patent HELTON to LAD. Severe disease involving the diagonal. I did perform successful stenting of the diagonal Patent radial bypass to OM Mild disease involving the right coronary artery which was stented before POSTPROCEDURE MANAGEMENT: 1. Dual antiplatelet therapy using aspirin and Plavix for 12 month 2. Aggressive cholesterol control 3. Follow-up with the patient
[2022-11-20] MEDS ORDERED: SODIUM CHLORIDE 0.9% 1,000 ML in EMPTY BAG 1 BAG IV SCH (09:45)
[2022-11-20 10:02] LABS: Glucose,Whole Blood 201 mg/dL (70-110)
[2022-11-20] MEDS: HYDROcodone/APAP 5-325MG 1 EACH TAB PO PRN ×2 (10:39→15:29)
[2022-11-20] MEDS ORDERED: SODIUM CHLORIDE 0.9% 1,000 ML IV ONE (11:00)
[2022-11-20] MEDS ORDERED: HYDROmorphone 1 MG/ML 1 ML SYRINGE ONE (11:56)
[2022-11-20] MEDS ORDERED: HYDROmorphone 1 MG/ML 1 ML SYRINGE IVP STA (11:57)
[2022-11-20 12:33] LABS: Glucose,Whole Blood 193 mg/dL (70-110)
[2022-11-20] MEDS: FUROSEMIDE 40 MG TAB PO SCH (13:43)
[2022-11-20] MEDS: EZETIMIBE 10 MG TAB PO SCH (13:44)
[2022-11-20] MEDS: SACUBITRIL/VALSARTAN 49 MG-51 MG TABLET PO SCH ×2 (13:44→20:42)
[2022-11-20] MEDS: CLOPIDOGREL 75 MG TAB PO SCH ×2 (13:46→13:48)
[2022-11-20] MEDS: METOPROLOL SUCCINATE (ER) 100 MG TAB.ER.24H PO SCH ×2 (13:52→20:42)
[2022-11-20 15:10] VITALS: BMI 29.7
[2022-11-20 17:41] LABS: Glucose,Whole Blood 245 mg/dL (70-110)
--- NOTE | 2022-11-20 17:41 | P.PN ---
Subjective Progress Note Date: 11/20/22 Hospital course: Patient is a very pleasant 67-year-old male with a past medical history of CAD status post CABG 4 and stent placement, chronic atrial fibrillation status post ablation 2 and currently on anticoagulation with xarelto, systolic congestive heart failure with previously known EF of 30-35% status post AICD placement, hypertension, hyperlipidemia, and insulin-dependent diabetes mellitus. He presented to the emergency department on 11/19/22 with a chief complaint of chest pain. Patient underwent full evaluation. EKG was completed showing atrial fibrillation with occasional PVCs at a ventricular rate of 84 bpm. Chest x-ray completed radiology report reviewed showing chronic appearing changes with possible underlying COPD . Labs were completed and reviewed. CBC consistent with thrombocytopenia with platelet count of 129. Coagulation profile showing slightly elevated INR 1.2. BMP revealing prerenal azotemia with BUN of 26 and hyperglycemia with glucose of 154. Liver profile unremarkable. Troponin negative at less than 0.012. Influenza A, influenza B, RSV, and Covid PCR were all negative. The patient was admitted under our services with consultation to cardiology. Troponins trended all negative at less than 0.0123 draws. E chocardiogram was completed showing severely impaired EF of 35% with right ventricular enlargement. Patient was evaluated by cardiology and taken for cardiac catheterization. Cardiac cath reported to reveal multivessel coronary artery disease and patient underwent successful stenting of diagonal. Physical exam: Patient seen and fully evaluated in room 637 and upon return from cardiac cath. Patient currently reports mild discomfort/back pain from lying flat, patient informed he'll need to lie flat for 6 hours status post cardiac cath and pain medications ordered at this time. Patient currently denies having any chest pain, palpitations, shortness of breath, or experiencing any numbness/tingling/weakness in his extremities. Vital signs reviewed and stable. General: Nontoxic, no distress and appears stated age. Derm: Skin warm and dry, normal coloration for ethnicity. Head: Atraumatic, normocephalic and symmetric. Eyes: EOMs intact, no lid lag, and anicteric sclera Mouth: no lip lesions, mucus membranes moist Cardiovascular: regular rate and rhythm with normal S1S2, systolic murmur, positive posterior tibial pulses bilaterally, and cap refill < [address] left anterior chest. cardiac cath access site right groin showing no signs of hematoma or active bleeding upon examination. Lungs: Respirations even, regular, and unlabored on room air. Lungs CTA bilaterally, no rhonchi, no rales, no wheezing, and no accessory muscle usage. Abdominal: soft, nontender to palpation, no guarding, no appreciable organomegaly Ext: ROM intact. No gross muscle atrophy, no edema, no contractures Neuro: Speech clear, face symmetrical and CN II-XII grossly intact with no noted focal neuro deficits Psych: Alert and oriented to person, place, time, and situation. Appropriate and pleasant affect. Assessment and Plan of Care: Chest pain, History of CAD status post CABG 4 and stent placement Chronic atrial fibrillation status post ablation 2 and currently on anticoagulation with xarelto Chronic systolic congestive heart failure with previously known EF of 30-35% status post AICD placement, Hypertension Hyperlipidemia Insulin-dependent diabetes mellitus -Troponins trended all negative at less than 0.0123 draws. -Echocardiogram was completed showing severely impaired EF of 35% with right ventricular enlargement. -Patient was evaluated by cardiology and taken for cardiac catheterization. Discussed plan of care with cardiac SEALER AIRCRAFT. -Cardiac cath reported to reveal multivessel coronary artery disease and patient underwent successful stenting of diagonal. -Continue telemetry monitoring -Continue cardiac medication regimen with Plavix 75 mg daily, Xarelto 20 mg, Sucabitril/valsartan 49 mg/51 mg tablet twice daily, pravastatin 20 mg nightly, metoprolol 200 mg daily and 100 mg nightly, Zetia 10 mg daily, and Lasix 40 mg daily and 20 mg with supper. -Blood glucose levels ranging from 123-226 over the past 24 hours with current blood glucose level of 193. Patient to continue with glycemic protocol, Levemir 30 units nightly and NovoLog sliding scale with meals and at bedtime. CODE STATUS: Full code DVT prophylaxis: Xarelto Discussed with: Patient, cardiology SE[employer]CRAFT and RN Anticipated discharge date: tomorrow morning Anticipated discharge place: home Patient was seen independently by Nurse Pracitioner. This document was prepared using [employer] dictation software. Please allow for errors in manager of global, while rare they do occur. Objective - Vital Signs Vital signs: Vital Signs Temp 97.6 F 11/20/22 12:25 Pulse 70 11/20/22 16:05 Resp 16 11/20/22 11:35 BP 152/77 11/20/22 16:05 Pulse Ox 96 11/20/22 16:05 FiO2 Intake & Output 11/19/22 11/20/22 11/20/22 18:59 06:59 18:59 Intake Total 0 500 Balance 0 500 Weight 102.058 kg 102.058 kg Intake: IV 500 Oral 0 Other: Voiding Method Toilet # Voids 2 - Labs CBC & Chem 7: 11/19/22 05:27 11/19/22 05:27 Labs: Abnormal Lab Results - Last 24 Hours (Table) 11/19/22 11/20/22 11/20/22 Range/Units 20:35 03:08 06:06 POC Glucose (mg/dL) 226 H 123 H 151 H (70-110) mg/dL 11/20/22 11/20/22 Range/Units 10:00 12:32 POC Glucose (mg/dL) 201 H 193 H (70-110) mg/dL
[2022-11-20] MEDS: TAMSULOSIN 0.4 MG CAP.ER.24H PO SCH (18:11)
[2022-11-20] MEDS: FUROSEMIDE 20 MG TAB PO SCH (18:12)
[2022-11-20 20:20] LABS: Glucose,Whole Blood 276 mg/dL (70-110)
[2022-11-20] MEDS: GABAPENTIN 300 MG CAP PO SCH (20:43)
[2022-11-20] MEDS: PRAVASTATIN SODIUM 20 MG TAB PO SCH (20:52)
[2022-11-21] MEDS: SODIUM CHLORIDE 0.9% 1,000 ML in EMPTY BAG 1 BAG IV SCH (01:42)
[2022-11-21 05:50] LABS: Glucose,Whole Blood 125 mg/dL (70-110)
[2022-11-21] MEDS: INSULIN ASPART (NovoLOG) 100 UNIT/ML VIAL SQ SCH (05:51)
[2022-11-21 08:32] VITALS: BP 138/71; PULSE 70; RESP 18; TEMP 97.7
[2022-11-21 09:00] LABS: Anion Gap 13.8 mmol/L (10.00-18.00); BUN/Creat Ratio 16.26 Ratio (12.00-20.00); Calcium 9.2 mg/dL (8.7-10.3); Carbon Dioxide 25.7 mmol/L (20.0-27.5); HCT 41.5 % (39.6-50.0); HGB 14.1 g/dL (13.0-17.0); MCH 32.3 pg (27.0-32.0); MCV 95.2 fL (80.0-97.0); Mean Platelet Volume 10.7 fL (9.5-12.2); NRBC Per 100 WBC 0 /100 WBCS (0.0-0.0); Non-African American GFR(CKD) 61.2 (60.0-200.0); Platelet Count 123 X 10*3/uL (140-440); Potassium 3.8 mmol/L (3.5-5.5); RBC 4.36 X 10*6/uL (4.40-5.60); RDW 13.4 % (11.5-14.5); WBC 8.26 X 10*3/uL (4.50-10.00)
[2022-11-21] MEDS ORDERED: CLOPIDOGREL 75 MG TAB PO SCH (09:00)
[2022-11-21] MEDS ORDERED: ASPIRIN 81 MG PO SCH (09:00)
[2022-11-21] MEDS: FUROSEMIDE 40 MG TAB PO SCH (09:07)
[2022-11-21] MEDS: SACUBITRIL/VALSARTAN 49 MG-51 MG TABLET PO SCH (09:07)
[2022-11-21] MEDS: GABAPENTIN 300 MG CAP PO SCH (09:07)
[2022-11-21] MEDS: CLOPIDOGREL 75 MG TAB PO SCH (09:07)
[2022-11-21] MEDS: TAMSULOSIN 0.4 MG CAP.ER.24H PO SCH (09:07)
[2022-11-21] MEDS: EZETIMIBE 10 MG TAB PO SCH (09:07)
[2022-11-21] MEDS: METOPROLOL SUCCINATE (ER) 100 MG TAB.ER.24H PO SCH (09:08)
--- NOTE | 2022-11-21 09:18 | P.PN ---
Subjective Progress Note Date: 11/21/22 HISTORY OF PRESENT ILLNESS: This is a 67-year-old male with a past medical history significant for coronary artery disease with previous CABG, persistent atrial fibrillation, nonsustained ventricular tachycardia, ischemic cardiomyopathy with previous AICD implantation. Patient follows in the office with Dr. Morton. We have been asked to see the patient in consultation for chest pain. Patient examined at the bedside. Patient states that yesterday he was having some chest discomfort but he did not think much of it. He states that he went out [employer] yesterday around midnight. He states when he was out fishing he did not have any pain. However, after he came home from fishing around 3:00 in the morning he developed chest pain again. He states that this pain was not similar to his previous heart attacks or when he required stenting. He states that he took 2 n itro and also some antacids. Neither of these helped his chest pain. He does report this morning when he ate a banana he had some discomfort in his chest. He also gives history that for the past 2 weeks he has been more short of breath than normal. He states he cannot walk to his mailbox and back without getting winded. At the time of examination, the patient states that he developed chest pain again. EKG was completed at the bedside during examination which revealed atrial fibrillation with no signs of acute ischemia. * EKG reveals atrial fibrillation with no signs of acute ischemia * Chest xray borderline heart size. Chronic appearing changes. Possible underlying COPD. Post CABG changes. Left-sided AICD generator. No acute process seen. * Laboratory data: W BC 7.6. Hemoglobin 14.3. Platelet count 129. Sodium 137. Potassium 4.0. B UN 26. Creatinine 1.14. Troponin negative 2. * Current home cardiac medications include Entresto 49-51 milligrams daily, Plavix 75 mg daily, red Path a 140 mg subcu every 14 days, Zetia 10 mg daily, Lasix 40 mg in the morning and 20 mg in the afternoon, metoprolol succinate 200 mg in the morning and 100 mg at night, Pravachol 20 mg at night, Xarelto 20 mg daily * Most recent echocardiogram obtained in July 2020 revealed EF 30%, global LV hypokinesis, moderately increased pulmonary artery systolic pressure. * Patient underwent CABG in July 2008 with HELTON to LAD, SVG to diagonal, radial artery to obtuse marginal, SVG to RCA * Cardiac catheterization history: * September 2012 with stenting to the LAD * September 2018 with PCI of the diagonal and obtuse marginal coronary artery. 11/21/2022 Patient is status post cardiac catheterization with Dr. Jack yesterday with stenting of the diagonal branch of the LAD. Patient examined this morning at the bedside. Patient denies chest pain or pressure. He denies shortness of breath. Vital signs are stable. Right groin is soft with no hematoma noted. Echocardiogram completed revealing ejection fraction 35% with mild TR. PHYSICAL EXAM: VITAL SIGNS: Reviewed. GENERAL: Well-developed in no acute distress. HEENT: Head is normocephalic. Pupils are equal, round. Sclerae anicteric. Mucous membranes of the mouth are moist. Neck supple. No JVD or thyromegaly LUNGS: Respirations even and unlabored. Lungs essentially clear to auscultation bilaterally. HEART: Irregular rate and rhythm. S1 and S2 heard. ABDOMEN: Soft. Nondistended. Nontender. EXTREMITIES: Normal range of motion. No clubbing or cyanosis. Peripheral pulses intact. No lower extremity edema NEUROLOGIC: Awake and alert. Oriented x 3. ASSESSMENT: Chest pain Coronary artery disease with previous CABG and subsequent stenting Persistent atrial fibrillation with controlled ventricular rate Ischemic cardiomyopathy, EF 30% History of AICD implantation Hypertension Hyperlipidemia History of nonsustained VT PLAN: Continue current cardiac medications Continue dual antiplatelet therapy. Resume Xarelto. Recommend triple therapy for 1 month. Patient is stable for discharge home today from a cardiac standpoint He is to follow up on an outpatient basis with his primary software development advisor, Dr. Morton Nurse practitioner note has been reviewed by physician. Signing provider agrees with the documented findings, assessment, and plan of care. Objective - Vital Signs Vital signs: Vital Signs Temp 97.7 F 11/21/22 08:00 Pulse 70 11/21/22 08:00 Resp 18 11/21/22 08:00 BP 138/71 11/21/22 08:00 Pulse Ox 96 11/21/22 08:00 FiO2 Intake & Output 11/20/22 11/21/22 11/21/22 18:59 06:59 18:59 Intake Total 500 Balance 500 Weight 102.058 kg Intake: IV 500 Other: Voiding Method Toilet # Voids 0 2 - Labs CBC & Chem 7: 05/24/23 05:19 11/21/22 05:19 Labs: Abnormal Lab Results - Last 24 Hours (Table) 11/20/22 11/20/22 11/20/22 Range/Units 10:00 12:32 17:40 RBC (4.40-5.60) X 10*6/uL MCH (27.0-32.0) pg Plt Count (140-440) X 10*3/uL POC Glucose (mg/dL) 201 H 193 H 245 H (70-110) mg/dL 11/20/22 11/21/22 11/21/22 Range/Units 20:18 05:19 05:48 RBC 4.36 L (4.40-5.60) X 10*6/uL MCH 32.3 H (27.0-32.0) pg Plt Count 123 L (140-440) X 10*3/uL POC Glucose (mg/dL) 276 H 125 H (70-110) mg/dL
--- NOTE | 2022-11-21 09:48 | P.DS ---
Providers Date of admission: 11/19/22 06:30 Expected date of discharge: 11/21/22 Attending physician: Sheron Mora MD Consults: 11/19/22 06:35 Consult Physician Urgent Consulting Provider: Cardiology Emilia Consult Reason/Comments: acute chest pain, hx ascad Do you want consulting provider notified?: Yes 11/20/22 09:36 Consult Physician Routine Consulting Provider: Cardiology Emilia Consult Reason/Comments: Post Interventional patient Do you want consulting provider notified?: Already Contacted Primary care physician: Shaun Lopez Hospital Course: Discharge Diagnosis: Chest pain, patient taken for cardiac cath on 11/20/22 which revealed multivessel coronary artery disease and resulted in successful stenting of diagonal. Cardiology clearing patient from cardiac standpoint to follow-up outpatient in their office in one week. Patient being discharged home on dual antiplatelet therapy with aspirin and Plavix in addition to anticoagulation with Xarelto. Patient was given full list of discharge instructions regarding each medication and reasons for use. Patient is currently free from any chest pain or discomfo rt at this time. Cardiac cath access site right groin free from any signs of hematoma/bruising. Patient to follow-up outpatient with PCP in 1-2 days and with varnish melter helper in 1 week. History of CAD status post CABG 4 and stent placement Chronic atrial fibrillation status post ablation 2 and currently on anticoagulation with xarelto Chronic systolic congestive heart failure with EF of 30-35% status post AICD placement Hypertension Hyperlipidemia Insulin-dependent diabetes mellitus Hospital Course: Patient is a very pleasant 67-year-old male with a past medical history of CAD status post CABG 4 and stent placement, chronic atrial fibrillation status post ablation 2 and currently on anticoagulation with xarelto, systolic congestive heart failure with previously known EF of 30-35% status post AICD placement, hypertension, hyperlipidemia, and insulin-dependent diabetes mellitus. He presented to the emergency department on 11/19/22 with a chief complaint of chest pain. Patient underwent full evaluation. EKG was completed showing atrial fibrillation with occasional PVCs at a ventricular rate of 84 bpm. Chest x-ray completed radiology report reviewed showing chronic appearing changes with possible underlying COPD . Labs were completed and reviewed. CBC consistent with thrombocytopenia with platelet count of 129. Coagulation profile showing slightly elevated INR 1.2. BMP revealing prerenal azotemia with BUN of 26 and hyperglycemia with glucose of 154. Liver profile unremarkable. Troponin negative at less than 0.012. Influenza A, influenza B, RSV, and Covid PCR were all negative. The patient was admitted under our services with consultation to cardiology. Troponins trended all negative at less than 0.0123 draws. Echocardiogram was completed showing severely impaired EF of 35% with right ventricular enlargement. Patient was evaluated by cardiology and taken for cardiac catheterization on 11/20/22. Cardiac cath revealed multivessel coronary artery disease and resulted in successful stenting of diagonal. Cardiology clearing patient from cardiac standpoint to follow-up outpatient in their office in one week. Patient being discharged home on dual antiplatelet therapy with aspirin and Plavix in addition to anticoagulation with Xarelto. Patient was given full list of discharge instructions regarding each medication and reasons for use. Patient is currently free from any chest pain or discomfort at this time. Cardiac cath access site right groin free from any signs of hematoma/bruising. Patient to follow-up outpatient with PCP in 1-2 days and with varnish melter helper in 1 week. Physical exam: Vital signs reviewed and stable. General: Nontoxic, no distress and appears stated age. Derm: Skin warm and dry, normal coloration for ethnicity. Head: Atraumatic, normocephalic and symmetric. Eyes: EOMs intact, no lid lag, and anicteric sclera Mouth: no lip lesions, mucus membranes moist Cardiovascular: regular rate and rhythm with normal S1S2, systolic murmur, positive posterior tibial pulses bilaterally, and cap refill < [address] left anterior chest. cardiac cath access site right groin showing no signs of hematoma or active bleeding upon examination. Lungs: Respirations even, regular, and unlabored on room air. Lungs CTA bilatera lly, no rhonchi, no rales, no wheezing, and no accessory muscle usage. Abdominal: soft, nontender to palpation, no guarding, no appreciable organomegaly Ext: ROM intact. No gross muscle atrophy, no edema, no contractures Neuro: Speech clear, face symmetrical and CN II-XII grossly intact with no noted focal neuro deficits Psych: Alert and oriented to person, place, time, and situation. Appropriate and pleasant affect. A total of 35 minutes of time were spent preparing this complex discharge summary. Pt was discharged on 11/21/22 at 9:44 AM. Patient was seen independently by Nurse Practitioner. This document was prepared using [employer] dictation software. Please allow for errors in electronic parts salesperson while rare they do occur. Patient Condition at Discharge: Stable Plan - Discharge Summary New Discharge Prescriptions: New Aspirin 81 mg PO DAILY 30 Days #30 tab Continue Cholecalciferol [Vitamin D3 (25 Mcg = 1000 Iu)] 50 mcg PO DAILY Cyanocobalamin [Vitamin B-12] 500 mcg PO DAILY Metoprolol Succinate [Toprol XL] 200 mg PO DAILY Ascorbic Acid [Vitamin C] 500 mg PO DAILY Clopidogrel [Plavix] 75 mg PO DAILY #30 tab Evolocumab [Repatha Sureclick] 140 mg SQ Q14D Repaglinide [Prandin] 1 mg PO BID Furosemide [Lasix] 40 mg PO DAILY Gabapentin 600 mg PO TID Fexofenadine HCl [Shila Allergy] 180 mg PO DAILY Ezetimibe [Zetia] 10 mg PO DAILY Tamsulosin [Flomax] 0.4 mg PO DAILY Sacubitril/Valsartan [Entresto 49 mg-51 mg Tablet] 1 tab PO DAILY Metoprolol Succinate [Toprol XL] 100 mg PO HS Pravastatin Sodium [Pravachol] 20 mg PO HS Cinnamon Bark [Cinnamon] 500 mg PO DAILY Rivaroxaban [Xarelto] 20 mg PO DAILY #90 tab Nitroglycerin Sl Tabs [Nitrostat] 0.4 mg SL Q5M PRN PRN Reason: Chest Pain Insulin Glargine/Lixisenatide [Soliqua 100 Unit-33 Mcg/ml Pen] 40 units SQ HS Dicyclomine [Bentyl] 20 mg PO TID PRN PRN Reason: IBS Furosemide [Lasix] 20 mg PO W/SUPPER Discharge Medication List Cholecalciferol [Vitamin D3 (25 Mcg = 1000 Iu)] 50 mcg PO DAILY 06/17/14 [History] Cyanocobalamin [Vitamin B-12] 500 mcg PO DAILY 12/08/14 [History] Metoprolol Succinate [Toprol XL] 200 mg PO DAILY 05/21/16 [History] Ascorbic Acid [Vitamin C] 500 mg PO DAILY 10/05/17 [History] Clopidogrel [Plavix] 75 mg PO DAILY #30 tab 01/18/18 [Rx] Evolocumab [Repatha Sureclick] 140 mg SQ Q14D 10/10/18 [History] Repaglinide [Prandin] 1 mg PO BID 01/05/20 [History] Furosemide [Lasix] 40 mg PO DAILY 04/20/20 [History] Gabapentin 600 mg PO TID 04/20/20 [History] Ezetimibe [Zetia] 10 mg PO DAILY 09/12/20 [History] Fexofenadine HCl [Shila Allergy] 180 mg PO DAILY 09/12/20 [History] Cinnamon Bark [Cinnamon] 500 mg PO DAILY 05/29/21 [History] Tamsulosin [Flomax] 0.4 mg PO DAILY 05/29/21 [History] Rivaroxaban [Xarelto] 20 mg PO DAILY #90 tab 06/15/21 [Rx] Metoprolol Succinate [Toprol XL] 100 mg PO HS 09/11/22 [History] Sacubitril/Valsartan [Entresto 49 mg-51 mg Tablet] 1 tab PO DAILY 09/11/22 [History] Dicyclomine [Bentyl] 20 mg PO TID PRN 11/19/22 [History] Furosemide [Lasix] 20 mg PO W/SUPPER 11/19/22 [History] Insulin Glargine/Lixisenatide [Soliqua 100 Unit-33 Mcg/ml Pen] 40 units SQ HS 11/19/22 [History] Nitroglycerin Sl Tabs [Nitrostat] 0.4 mg SL Q5M PRN 11/19/22 [History] Pravastatin Sodium [Pravachol] 20 mg PO HS 11/19/22 [History] Aspirin 81 mg PO DAILY 30 Days #30 tab 11/21/22 [Rx] Follow up Appointment(s)/Referral(s): Luis Morton MD [STAFF PHYSICIAN] - 11/28/22 8:30 am ([facility] [facility]) Shaun Lopez MD [Primary Care Provider] - 1-2 days Patient Instructions/Handouts: *Surgery [facility] - After Heart Catheterization - [facility] Supervisor Instructions Activity/Diet/Wound Care/Special Instructions: Discharge Instructions After Cardiac Catheterization with Stent Placement: Aspirin as anti-platelet therapy - Aspirin lessens the chance of heart attack and stroke. It helps prevent blood clots from forming, allowing the blood to flow more easily. Each day, you will take one 81 mg (non-enteric coated) tablet daily. Do not stop unless instructed by your doctor. Anti-platelet Therapy. -In addition to aspirin, you will take one additional anti-platelet medication daily. This will help prevent a clot from forming in your stent: Plavix (clopidogrel) -You will need to take your anti-platelet medicine every day for 12 months -Please consult your heart doctor before you stop this medicine. -They may want you to continue for a longer period of time. Statins -A statin medication lowers cholesterol levels in the blood. This helps slow the progression of heart disease. - Please take your statin medication as prescribed by your doctor. -You may be taking one of the following statins: Pravastatin Beta blockers Your Medication: Metoprolol Is a medication that protects your heart from stress and can prevent future heart attacks. It can slow your heart rate. It can take weeks for your body to get used to a beta wesley. The dose may need to be changed a few times as your body adjusts Angiotensin receptor wesley and Neprilysin inhibitor (ARNI) Your medication: Entresto relaxes blood vessels, improves blood flow, and reduces stress on your heart. This is a combination medication that contains neprilysin inhibitor sacubitril and the angiotensin receptor wesley valsartan. These medications used together help improve your hearts ability to pump blood to your body. Do not stop taking these medicines without talking to your varnish melter helper first. -Take all other medicines as directed by your doctor. Do not take any extra aspirin or ibuprofen. They can increase your risk of bleeding. Many [id number] drugs contain aspirin. If you are unsure about what the drug contains, check with your pharmacist before taking it. -For mild discomfort, you may take plain Tylenol (acetaminophen). Follow dose directions, but do not take more than 4,000 mg of acetaminophen in 24 hours. Contact your doctor right away or go to the nearest hospital Emergency Room if you have: -Severe angina or chest pain. (This may be a sign of a problem with your stent.) -Excessive bruising, blood in urine/stool or black tarry stools. Healthy LifeStyle It is important to keep a heart healthy lifestyle. This can improve your long- term health and decrease your risk for heart attacks. -Managing your blood cholesterol, blood pressure, weight, and stress. -The importance of regular exercise. -Heart Healthy Diet: Include more plants in your diet. Eat lots of fresh vegetables and fresh fruits. Eat good fats: plant based oils, avocado, nuts, beans, legumes. Eat more seafood. Limit Meat. Switch to whole grains. -Avoid fried foods and animal fats and processed meats Follow up with your PCP Dr. Lopez and [facility] with Dr. Land. Thank you for allowing us to participate in your care, it was truly a pleasure having you for our patient!!! Discharge Disposition: HOME SELF-CARE
[2022-12-01] MEDS ORDERED: NON FORMULARY DRUG (Evolocumab [Repatha Sureclick] 140 MG/ML Pen.Injctr) SQ SCH (09:00)
== END 2022-11-21 10:50 | disposition home or self-care (01) | DRG 247 ==
LOC: EC 05:04 → 6NMEDSUR 06:29 → OBSVTOIN 06:30 → 6NMEDSUR 07:36
PROVIDERS: ADMIT Internal Medicine; ATTEND Internal Medicine
PROC: B2111ZZ Fluoroscopy of Multiple Coronary Arteries using Low Osmolar Contrast (ICD-10-PCS; principal; 2022-11-20 07:30)
PROC: 027034Z Dilation of Coronary Artery, One Artery with Drug-eluting Intraluminal Device, Percutaneous Approach (ICD-10-PCS; principal; 2022-11-20 07:30)
PROC: 4A023N7 Measurement of Cardiac Sampling and Pressure, Left Heart, Percutaneous Approach (ICD-10-PCS; principal; 2022-11-20 07:30)
PROC: B240ZZ3 Ultrasonography of Single Coronary Artery, Intravascular (ICD-10-PCS; principal; 2022-11-20 07:30)
DX: I25.110 Atherosclerotic heart disease of native coronary artery with unstable angina pectoris (principal); I48.19 Other persistent atrial fibrillation; I50.22 Chronic systolic (congestive) heart failure; D69.6 Thrombocytopenia, unspecified; E78.5 Hyperlipidemia, unspecified; E11.9 Type 2 diabetes mellitus without complications; I11.0 Hypertensive heart disease with heart failure; I25.2 Old myocardial infarction; M19.90 Unspecified osteoarthritis, unspecified site; I25.5 Ischemic cardiomyopathy; I49.3 Ventricular premature depolarization; I83.90 Asymptomatic varicose veins of unspecified lower extremity; R79.1 Abnormal coagulation profile; Z79.01 Long term (current) use of anticoagulants; Z79.02 Long term (current) use of antithrombotics/antiplatelets; Z79.4 Long term (current) use of insulin; Z79.899 Other long term (current) drug therapy; Z95.1 Presence of aortocoronary bypass graft; Z95.810 Presence of automatic (implantable) cardiac defibrillator
CPT/HCPCS: 36415; 71046; 80048; 80053; 80061; 83036; 83690; 83735; 84484; 85025; 85027; 85610; 85730; 87636; 92978; 93005; 93306; 93458; 94760

== ENCOUNTER → 2023-07-26 | Outpatient (CLI) | payer MEDICARE ==
[2023-07-26 15:37] LABS: HCT 42.5 % (39.6-50.0); HGB 14.2 g/dL (13.0-17.0); MCH 32.1 pg (27.0-32.0); MCHC 33.4 g/dL (32.0-37.0); MCV 95.9 FL (80.0-97.0); Mean Platelet Volume 11.2 FL (9.5-12.2); NRBC Per 100 WBC 0 X 10*3/uL (0.00-0.01); Platelet Count 115 X 10*3/uL (140-440); RBC 4.43 X 10*6/uL (4.40-5.60); RDW 14.3 % (11.5-14.5); WBC 6.68 X 10*3/uL (4.50-10.00)
[2023-07-26 16:18] LABS: Blood Urea Nitrogen 24.4 mg/dL (9.0-27.0); Carbon Dioxide 22.5 mmol/L (21.6-31.8); Chloride 101 mmol/L (96-109); Sodium 138 mmol/L (135-145)
== END | disposition home or self-care (01) ==
LOC: LABPAT 09:24
PROVIDERS: ATTEND Internal Medicine Clinical Cardiac Electrophysiology
DX: Z01.812 Encounter for preprocedural laboratory examination (principal); I25.5 Ischemic cardiomyopathy; I48.21 Permanent atrial fibrillation
CPT/HCPCS: 80051; 82565; 84520; 85027

== ENCOUNTER 2023-08-05 11:32 | Day surgery (SDC) | payer MEDICARE ==
[~2023-08-05 11:32] MED LIST changes: +HYDROmorphone 0.5 MG/0.5 ML SYRINGE IVP PRN; +MIDAZOLAM 2 MG/2 ML VIAL IV PRN
[2023-08-05] MEDS: SODIUM CHLORIDE 0.9% 1,000 ML IV SCH (11:57)
[2023-08-05] MEDS: INSULIN ASPART (NovoLOG) 100 UNIT/ML VIAL SQ ONE (12:01)
[2023-08-05] MEDS ORDERED: MIDAZOLAM 2 MG/2 ML VIAL ONE (12:07)
[2023-08-05] MEDS ORDERED: PROPOFOL 10 MG/ML 20 ML VIAL IV ONE (12:07)
[2023-08-05] MEDS ORDERED: fentaNYL (PF) 50 MCG/ML 2 ML AMP ONE (12:07)
[2023-08-05 12:12] VITALS: TEMP 98.5
[2023-08-05 12:13] LABS: Glucose,Whole Blood 330 mg/dL (70-110)
[2023-08-05] MEDS ORDERED: LIDOCAINE 1% INJ 10MG/ML (20 ML MDV) ONE ×2 (12:22)
[2023-08-05] MEDS: ceFAZolin 1 GM in SODIUM CHLORIDE 0.9% IRRIG BTL 250 ML IRRIGATION PRN (12:41)
[2023-08-05] MEDS: LIDOCAINE 1% INJ 10MG/ML (20 ML MDV) SQ ONE ×2 (12:41→12:50)
--- NOTE | 2023-08-05 13:27 | P.EPPROC ---
- EP Procedure Note Electrophysiology Procedure Note: Diagnosis Ischemic cardiomyopathy, chronic Known multivessel CAD status post coronary artery bypass grafting Congestive heart failure class II Bradycardia, on guideline directed History of ventricular fibrillation Dual-chamber ICD in situ, at [facility], [place] Procedure: Dual-chamber ICD generator change for management of risk of sudden cardiac /bradycardia, device at [facility] secondary to normal battery depletion Result: Dual chamber ICD generator change, Charles Brandon DR [id number] C Chronic atrial lead: P waves 1.2 mV, pacing impedance 530 ohms Chronic dual coil RV ICD lead: Pacing threshold 0.5 V at point 5 ms, R waves greater than 12 mV, pace impedance 610 ohms High-voltage impedance 55 ohms Procedure details: Patient was brought to the EP lab in a fasting state. Written informed consent was obtained prior to the procedure. Options, pros and cons, benefits and risks and complications discussed with patient in detail prior to the procedure (shared decision making). Importance of continuing medical treatment emphasized. Alternatives discussed. Patient would like to proceed with dual-chamber ICD generator change The left pectoral area was prepped and draped as a protocol. IV antibiotics administered 1% lidocaine was used for local anesthesia. A 4 cm incision was made parallel to the deltopectoral groove, about 1.5 cm medial to it. The incision was carried down to the level of the pectoralis muscle and generator and the subfascial pocket was entered. Hemostasis was assured. The chronic dual-chamber ICD generator was explanted Partial capsulectomy performed. Hemostasis ensured. Pocket irrigated. Antibiotic pouch placed. New generator connected and placed in pocket Wound closed in 3 layers and dressed per protocol Patient tolerated the procedure well without any acute complications. See scanned device report in EMR for lead details
[2023-08-05] MEDS ORDERED: ACETAMINOPHEN TAB 325 MG TAB PO PRN (13:29)
[2023-08-05 16:32] VITALS: RESP 16
[2023-08-05 17:25] VITALS: BP 145/67; PULSE 72
== END 2023-08-05 17:02 | disposition home or self-care (01) ==
LOC: CATHEP 11:32
PROVIDERS: ATTEND Internal Medicine Clinical Cardiac Electrophysiology
DX: I25.10 Atherosclerotic heart disease of native coronary artery without angina pectoris (principal); I11.0 Hypertensive heart disease with heart failure; I50.9 Heart failure, unspecified; I49.01 Ventricular fibrillation; I48.21 Permanent atrial fibrillation; E78.5 Hyperlipidemia, unspecified; E11.9 Type 2 diabetes mellitus without complications; F17.210 Nicotine dependence, cigarettes, uncomplicated; Z82.49 Family history of ischemic heart disease and other diseases of the circulatory system; Z79.01 Long term (current) use of anticoagulants; Z79.899 Other long term (current) drug therapy
CPT/HCPCS: 33263; C1721; J2250; J0690; J2001; J3010; J2704

== ENCOUNTER → 2023-12-23 | Outpatient (CLI) | payer MEDICARE ==
[2023-12-23 19:39] LABS: Urine Creatinine 82.7 mg/dL (39.0-259.0)
[2023-12-23 19:53] LABS: ALT 20 U/L (10-49); AST 24 U/L (14-35); Albumin 4.8 g/dL (3.8-4.9); Albumin/Globulin Ratio 2.29 Ratio (1.60-3.17); Alkaline Phosphatase 46 U/L (41-126); BUN/Creat Ratio 15.71 Ratio (12.00-20.00); C-Peptide 8.37 ng/mL (0.81-3.85); Calcium 9.2 mg/dL (8.7-10.3); Carbon Dioxide 27.6 mmol/L (21.6-31.8); Chloride 102 mmol/L (96-109); Globulin 2.1 g/dL (1.6-3.3); Glucose 154 mg/dL (70-110); Potassium 4.7 mmol/L (3.5-5.5); Sodium 142 mmol/L (135-145); Total Bilirubin 0.5 mg/dL (0.3-1.2); Total Protein 6.9 g/dL (6.2-8.2)
== END | disposition home or self-care (01) ==
LOC: LABWHC1 12:45
PROVIDERS: ATTEND Internal Medicine
DX: E11.65 Type 2 diabetes mellitus with hyperglycemia (principal)
CPT/HCPCS: 36415; 80053; 82043; 82570; 83036; 84681

== ENCOUNTER → 2023-12-24 | Outpatient (CLI) | payer MEDICARE ==
[2023-12-24 15:21] LABS: Chol/HDL Ratio 2.45 Ratio; LDL Cholesterol,Calculated -8.1 mg/dL (0.0-131.0)
== END | disposition home or self-care (01) ==
LOC: LABWHC1 09:54
PROVIDERS: ATTEND Internal Medicine
DX: E11.65 Type 2 diabetes mellitus with hyperglycemia (principal)
CPT/HCPCS: 36415; 80061